=== PATIENT | male | born 1985 | race Caucasian/White ===

== ENCOUNTER 2023-10-02 20:07 | Emergency (ER) | payer OTHER, SELFPAY ==
[2023-10-02 20:10] VITALS: BMI 31.6
[2023-10-02 20:57] VITALS: BP 110/83
[2023-10-02 20:58] VITALS: BP 110/78
--- NOTE | 2023-10-02 22:49 | ED.GENMED ---
History of Present Illness
General
Chief Complaint: Vascular Symptoms
Time Seen by Provider: 10/02/23 20:13
Travel History
Have you had any contact with someone who has COVID-19?: No
Do you have any symptoms of coronavirus? Fever > 100 degrees, chills, cough, shortness of breath, sore throat, loss of taste or smell, muscle aches, or headache?: No
History of Present Illness
History of Present Illness:
Mother noted cyanosis to the left lower leg this evening. States his feet are frequently cool but not normally this cyanotic. Mostly the left lower leg.
Past History
Past History
ED Past Medical History: None and Other (gout once 'a long time ago' was given Colchecine at the time)
Social History
Tobacco: Non-smoker
Personal: Single
Living: with family
Employment: Employed
Family History
Family History: Other (father has RA)
Phy Exam
Physical Exam
Physical Exam:
GENERAL: Alert. Will answer questions.
EYE: Orbits normal.
NECK: Supple
CARDIAC: Regular rate and rhythm without any obvious murmurs.
LUNGS: Clear breath sounds,normal
ABDOMEN: Soft, without focal tenderness or distention
NEUROLOGICAL: Alert. Left hemiplegia
SKIN: Warm and dry, no rash or lesion, no discoloration, skin intact.
MUSCULOSKELETAL: Coolness to both lower extremities left greater than right. This only is the feet. Calves have good color. Good popliteal pulses. Good femoral pulses bilaterally. Initially had a Doppler of the left posterior tibial. Right
posterior tibial intact.
Course
Orders/Labs/Results
Orders:
Orders
10/02/23 20:42
US Periph Art LOWER Ext w CAMMY Urgent
Comment:
Reason For Exam: left foot cyanosis
10/02/23 20:43
US Periph Venous LOWER Ext Jayson Urgent
Comment:
Reason For Exam: LE color changes. hx of dvt
Vital Signs
Initial and Last Documented VS:
Initial Vital Signs
Pulse Ox
98
10/02/23 20:19
Last Documented Vital Signs
Pulse Resp BP Pulse Ox
75 11 110/78 95
10/02/23 21:15 10/02/23 21:15 10/02/23 20:58 10/02/23 21:15
*Radiology
Radiology exam reviewed: radiology read reviewed (Arterial flow good. Venous ultrasounds negative.)
*Pulse Oximetry
Patient hypoxic: no
*Critical Care Note
Total Time (30-74mins, 75-104mins- exclusive of procedures): Not Applicable
Data Reviewed
Review of Other/Old Records Reveals: Labs and Records
Update Note
Update Note:
Patient's feet are warm and perfusing well at this time. I suspect this is a sympathetic neurologic issue. No sign of any vascular issue. Stable for discharge to follow-up
ED Attending Note
-
Portions of this chart may have been created with voice recognition software.� Occasional wrong word or��sound alike� substitutions may have occurred due to the inherent limitations of voice recognition software.
Discharge Plan
Departure
Patient Disposition: Home (Routine Discharge)
Date of Disposition: 10/02/23
Time of Disposition: 22:50
Patient with high blood pressure during this ER visit?: No
Discharge Problem:
history of intracerebral bleed, transient vascular changes. LLE
Prescriptions:
No Action
prednisone 50 MG tablet
50 mg PO DAILY Qty: 4 0RF
Referrals:
Raymond Eckert MD [Family Provider] - Follow up in 2-3 days
Activity Restrictions/Additional Instructions:
As discussed return with any prolonged concerns for vascular issues, swelling, redness, cyanosis, pain or any other concerning symptoms
Interventions
Interventions:
*Risk Screen - Suicide Last Done: 10/02/23 20:12
*General Assessment Last Done: 10/02/23 20:12
*Neglect/Abuse Screening Last Done: 10/02/23 20:12
ED- Fall Risk Assessment Last Done: 10/02/23 20:19
*ED COVID-19 Vaccine History Last Done: 10/02/23 20:11
ED- Cardiac Assessment Last Done: 10/02/23 20:19
ED- Pulmonary Assessment Last Done: 10/02/23 20:19
ED-Peripheral Vascular Assessment Last Done: 10/02/23 20:19
ED-Skin Assessment Last Done: 10/02/23 20:19
[2023-10-02 22:55] VITALS: BP 109/76
== END 2023-10-03 01:20 | disposition home or self-care (01) ==
LOC: EMR 20:07
PROVIDERS: EMERGENCY PHYSICIAN Emergency Medicine; FAMILY PHYSICIAN Family Medicine
DX: R23.0 Cyanosis (principal); R23.8 Other skin changes; Z86.718 Personal history of other venous thrombosis and embolism; Z86.73 Personal history of transient ischemic attack (TIA), and cerebral infarction without residual deficits
CPT/HCPCS: 99284; 93922; 93925; 93970

== ENCOUNTER 2023-11-14 10:59 | Emergency (ER) | payer OTHER, SELFPAY ==
[2023-11-14 11:08] VITALS: BP 155/102
[2023-11-14 11:17] VITALS: BMI 32.1
--- NOTE | 2023-11-14 11:32 | ED.GENMED ---
History of Present Illness
<CARTER Lowe - Last Filed: 11/14/23 13:15>
General
Chief Complaint: Catheter/Tube Problem
Source: family and primary care nurse practitioner
Time Seen by Provider: 11/14/23 11:17
Nursing documentation reviewed up to this point in time: agreed with
Travel History
Have you had any contact with someone who has COVID-19?: No
Do you have any symptoms of coronavirus? Fever > 100 degrees, chills, cough, shortness of breath, sore throat, loss of taste or smell, muscle aches, or headache?: No
History of Present Illness
History of Present Illness:
Patient is a 38-year-old male with history of intracranial hemorrhage with feeding tube in place cared for at home by mom brought to the ER by EMS. Mom reports she was having difficulty with drainage of PEG tube patient was complaining of slight
discomfort to the area she noticed some irritation to the area and to but not flush to gravity as as it normally does. Patient uses tube for fluids and medicine he does not eat orally
Past History
<CARTER Loew - Last Filed: 11/14/23 13:15>
Past History
ED Past Medical History: None and Other (gout once 'a long time ago' was given Colchecine at the time)
Social History
Tobacco: Non-smoker
Personal: Single
Living: with family
Employment: Employed
Family History
Family History: Other (father has RA)
Review of Systems
<CARTER Lowe - Last Filed: 11/14/23 13:15>
Review of Systems
Allergies reviewed?: Yes
Other source history: family
All Other Systems: ROS reviewed and negative except as documented in HPI and ROS
Constitutional: Reports no symptoms; Denies fever
ABD/GI: Reports other (G-tube not flushing)
Skin: Reports no symptoms
Neurological: Reports no symptoms
Psychiatric: Reports no symptoms
Phy Exam
<CARTER Lowe - Last Filed: 11/14/23 13:15>
General Physical Exam
General Presentation: no apparent distress
General age: appears stated age
General Skin: warm and dry
General Habitus: debilitated
General Mental: alert
General Hydration: appears well hydrated
Gastrointestinal Exam
Gastrointestinal Exam: other (PEG tube in place no purulent drainage or bleeding from site)
Neurological Exam
Neurological Exam: alert
Musculoskeletal Exam
Musculoskeletal Exam: full ROM
Skin Exam
Skin Exam: normal color and warm/dry
Psychiatric Exam
Psychiatric Exam: other (flat affect )
Course
<CARTER Lowe - Last Filed: 11/14/23 13:15>
Orders/Labs/Results
Orders:
Orders
11/14/23 11:32
Tube Check [CR Cont Inj Eval Tube(by Rad)] Urgent
Comment:
Reason For Exam: confirm placement
11/14/23 11:54
Lidocaine 4% Cream [Lmx 4] 1 applic .ROUTE .STK-MED ONE
Lidocaine/Epinephrine/Tetracai [Let Topical Anesthetic Gel] 3 ml .ROUTE .STK-MED ONE
Vital Signs
Initial and Last Documented VS:
Initial Vital Signs
Pulse Resp Pulse Ox
63 14 97
11/14/23 11:06 11/14/23 11:06 11/14/23 11:06
Last Documented Vital Signs
Temp Pulse Resp BP Pulse Ox
98.7 F 64 12 135/98 95
11/14/23 11:08 11/14/23 12:00 11/14/23 11:15 11/14/23 12:00 11/14/23 12:00
<Jerome Gramajo MD - Last Filed: 11/14/23 12:06>
Orders/Labs/Results
Orders:
Orders
11/14/23 11:32
Tube Check [CR Cont Inj Eval Tube(by Rad)] Urgent
Comment:
Reason For Exam: confirm placement
11/14/23 11:54
Lidocaine 4% Cream [Lmx 4] 1 applic .ROUTE .STK-MED ONE
Lidocaine/Epinephrine/Tetracai [Let Topical Anesthetic Gel] 3 ml .ROUTE .STK-MED ONE
Vital Signs
Initial and Last Documented VS:
Initial Vital Signs
Pulse Resp Pulse Ox
63 14 97
11/14/23 11:06 11/14/23 11:06 11/14/23 11:06
Last Documented Vital Signs
Temp Pulse Resp BP Pulse Ox
98.7 F 64 12 135/98 95
11/14/23 11:08 11/14/23 12:00 11/14/23 11:15 11/14/23 12:00 11/14/23 12:00
<CARTER Lowe - Last Filed: 11/14/23 13:15>
MDM/Problems Addressed
Differential Diagnosis Includes:
Not limited to blockage, dislodged
MDM/Problems Addressed:
16 Croatian feeding tube was placed successfully with confirmation of of placement on x-ray. Patient tolerated procedure well. Mom at bedside giving patient his normally scheduled medications without difficulty. Will plan for discharge home.
Chronic conditions affecting care:
Patient with history of intracranial hemorrhage cared for at home by mom with PEG tube
<CARTER Lowe - Last Filed: 11/14/23 13:15>
*Critical Care Note
Total Time (30-74mins, 75-104mins- exclusive of procedures): Not Applicable
ED Attending Note
<CARTER Lowe - Last Filed: 11/14/23 13:15>
-
Portions of this chart may have been created with voice recognition software.� Occasional wrong word or��sound alike� substitutions may have occurred due to the inherent limitations of voice recognition software.
<Jerome Gramajo MD - Last Filed: 11/14/23 12:06>
ED Attending Note
Patient seen and examined by attending physician: Yes
I performed the substantive portion of visit, reviewed & personally made and approve the management plan that is documented in note by myself or JADA.: Yes
ED Attending Note:
Patient with some bleeding around his G-tube this week. Has been wearing a band to help lift to move this week. Some pain at the site. Patient's mom noted troubles with drainage to gravity this morning.
On exam patient is nontoxic. Sequela I of intracranial bleed. Known to me. Abdomen is soft and nontender. G-tube appears grossly normal. There is very minimal dried blood at the opening. However no drainage or erythema.
Given problems with drainage and after discussion with patient's mom and , we will change the G-tube.
Discharge Plan
Departure
Patient Disposition: Home (Routine Discharge)
Date of Disposition: 11/14/23
Time of Disposition: 13:10
Patient with high blood pressure during this ER visit?: Yes
Condition: Fair
Covid-19: Not Applicable
Discharge Problem:
Encounter for feeding tube placement
Prescriptions:
No Action
prednisone 50 MG tablet
50 mg PO DAILY Qty: 4 0RF
Referrals:
Raymond Eckert MD [Family Provider] -
Activity Restrictions/Additional Instructions:
16 Croatian feeding tube was inserted with tube confirmation. Return if any worsening of symptoms
Interventions
Interventions:
*Risk Screen - Suicide Last Done: 11/14/23 11:16
*General Assessment Last Done: 11/14/23 11:16
*Neglect/Abuse Screening Last Done: 11/14/23 11:21
ED- Fall Risk Assessment Last Done: 11/14/23 11:23
*ED COVID-19 Vaccine History Last Done: 11/14/23 11:21
EH-Twxagq-Eqoqbtqdvr Assessment Last Done: 11/14/23 11:29
ED-Male Genitourinary Assessment Last Done: 11/14/23 11:29
Discharge Date and Time
Print Language: TUNISIAN
[2023-11-14 12:00] VITALS: BP 135/98
== END 2023-11-14 16:48 | disposition home or self-care (01) ==
LOC: EMR 10:59
PROVIDERS: EMERGENCY PHYSICIAN Emergency Medicine; FAMILY PHYSICIAN Family Medicine
DX: Z46.59 Encounter for fitting and adjustment of other gastrointestinal appliance and device (principal); K94.21 Gastrostomy hemorrhage; R03.0 Elevated blood-pressure reading, without diagnosis of hypertension; F41.9 Anxiety disorder, unspecified; F32.A Depression, unspecified; I69.969 Other paralytic syndrome following unspecified cerebrovascular disease affecting unspecified side; M10.9 Gout, unspecified; N31.9 Neuromuscular dysfunction of bladder, unspecified; Z86.11 Personal history of tuberculosis; Z86.718 Personal history of other venous thrombosis and embolism
CPT/HCPCS: 99283; 43762; 49465

== ENCOUNTER 2023-12-14 18:45 | Observation (INO) | payer OTHER, SELFPAY ==
[2023-12-14] VITALS (10 sets, daily range): BP systolic 126–159; BP diastolic 80–117; BMI 32.5; BMI 30.7
--- NOTE | 2023-12-14 14:19 | ED.GENMED ---
History of Present Illness
General
Chief Complaint: Weakness
Source: patient and family (Mother)
Time Seen by Provider: 12/14/23 13:58
Travel History
Have you had any contact with someone who has COVID-19?: No
Do you have any symptoms of coronavirus? Fever > 100 degrees, chills, cough, shortness of breath, sore throat, loss of taste or smell, muscle aches, or headache?: No
History of Present Illness
History of Present Illness:
Primary complaint is increased weakness. Some cough off and some slurred speech. Patient has a history of a pontine bleed. He is well cared for by his family at home. He has no complaints and is fully alert. However his mom is concerned that he
has some increased and unusual weakness possibly some mild slurred speech although this is improved. Also some cough that is new. No fever no other complaints
Past History
Past History
ED Past Medical History: None and Other (gout once 'a long time ago' was given Colchecine at the time)
Social History
Tobacco: Non-smoker
Personal: Single
Living: with family
Employment: Employed
Family History
Family History: Other (father has RA)
Review of Systems
Review of Systems
All Other Systems: Not applicable
Constitutional: Denies fever
Respiratory: Denies trouble breathing
Cardiac: Denies chest pain
Phy Exam
Physical Exam
Physical Exam:
GENERAL: Alert and oriented in no apparent distress
EYE: Vertical recurring nystagmus with palsy to the left eye
NECK: Supple
ENT: Pharynx without erythema
CARDIAC: Regular rate and rhythm without any obvious murmurs.
LUNGS: Clear breath sounds,normal
ABDOMEN: Soft, without focal tenderness or distention. G-tube in place
NEUROLOGICAL: Alert known to me. Clinically appears likely at neurologic baseline. Weakness left greater than right upper extremity and left greater than right lower extremity. Able to lift his right leg off the chair briefly.
SKIN: Warm and dry, no rash or lesion, no discoloration, skin intact.
MUSCULOSKELETAL: No edema,no deformity.Good color
PSYCH: Normal and appropriate interaction.
Course
Orders/Labs/Results
Orders:
Orders
12/14/23 14:12
CT Head W/o Iv Contrast Urgent
Comment:
Reason For Exam: Increased weakness. History of pontine bleed
Cardiac Monitoring- Treatment ONCE
CXR2 [CR Chest - 2 Views ] Urgent
Comment:
Reason For Exam: Cough/weakness
Pulse Ox/cont/shift [RESP] Stat
Quantity: 1
12/14/23 14:13
Electrocardiogram (*1) Stat
Reason for Study: Other
Other Reason for Exam: neuro symptoms
EKG- Treatment ONCE
12/14/23 14:22
Basic Metabolic Panel Urgent
Complete Blood Count/With Diff Urgent
Urinalysis Reflex To Culture Urgent
Date Specimen was Collected: 12/14/23
Time Specimen was Collected: 14:17
12/14/23 Dinner
IDDSI 4 - Pureed
At Your Request: Full Participation
Oral Supplement (If unsure of flavor order apple or vanilla): Ensure Enlive Chocolate
Supplement Frequency: TID
Special Instructions: One to One Supervision
Comment: nectar thick the ensure for pt to Drink
12/14/23 18:16
Admit/Transfer Patient As Directed
Co-Sign Provider:
Level of Care: Observation services
Assign to:: Telemetry
Physician / Group: carlos kimbrough
Diagnosis: acute on chronic dyspaghia, chronic paraylsis 2/ prior hemorrah brain
Reason for Telemetry: Arrhythmia
Date to Stop Telemetry: 12/17/23
Time to Stop Telemetry: 11:00
Code Status As Directed
Resuscitation Status: Full Code
12/14/23 18:22
HydrALAZINE [Apresoline] 10 mg IV Q6HPRN PRN
Gastrointestinal Tubes As Directed
Type: Gastrostomy
To suction?: No
Irrigate tube?: Yes
Irrigant: Tap Water
Frequency: Q6H
Amount in mls: 250
12/14/23 18:24
CARDIOLOGY CONSULT Routine
Consulting Provider: Krzysztof Burk
Was physician already notified: Yes
Reason for consult: htn mgmt hx pontine cva
12/14/23 19:28
Bisacodyl [Dulcolax] 10 mg RECTAL [id number] PRN
Docusate W/Senna [Senokot-S] 1 tablet PO BIDPRN PRN
Polyethylene Glycol Powder [Miralax] 17 grams PO DAILYPRN PRN
12/14/23 19:28
Case Management Consult ONCE
Case Management Consult: Fdc Placement
Comment: mother he lives with is looking for SNF placement as she cant car for pt and agency has no one to
send. Pt is so is occasionly involved[facility] never [facility]. Pt is NOT aware family or is looking to place him. mom
works here cardiac rehab has exhausted her FMLA
DIETARY CONSULT Routine
Reason for Consult: chronic dysphagia was eating minced moist
Activity As Directed
Activity Level: With Assistance
Comment: assit of 2 to roll pt bedbound
Intake/ Output As Directed
Frequency: Per unit guidelines
Pneumatic Compression Sleeves As Directed
Type: Knee high
Vital Signs As Directed
Frequency: Per unit guidelines
Ot Eval And Treat Routine
Pt Eval And Treat Routine
Activity Level: With Assistance
Speech Therapy Eval & Treat Routine
DX Deep Vein Thrombosis Video Routine
12/15/23 06:00
Basic Metabolic Panel IN AM
Complete Blood Count/With Diff IN AM
Videofluoroscopy [RF Video Fluoro Swallow Exam] IN AM
Comment:
Reason For Exam: Swallowing Function
Abnormal Lab Results
12/14/23
14:22
RDW 15.4 H %
(11.5-14.5)
Glucose 102 H mg/dl
(70-99)
12/14/23 14:22
12/14/23 14:22
Vital Signs
Initial and Last Documented VS:
Initial Vital Signs
Temp Pulse Resp BP Pulse Ox
97.8 F 53 17 159/111 99
12/14/23 13:35 12/14/23 13:35 12/14/23 13:35 12/14/23 13:35 12/14/23 13:35
Last Documented Vital Signs
Temp Pulse Resp BP Pulse Ox
97.8 F 53 18 143/117 95
12/14/23 13:35 12/14/23 17:15 12/14/23 17:15 12/14/23 18:00 12/14/23 17:15
MDM/Problems Addressed
Differential Diagnosis Includes:
General weakness. Patient overexerted himself 3 days ago which she does about once a week. Usually the following day he has some increased weakness. This occurred 2 days ago however this weakness has persisted.
Doubt acute neurologic issue. Patient really not at risk for ischemic stroke. Would only be at risk for recurrent bleed. CT will be done. Somewhat of a difficult neurologic exam given his baseline neurologic issues. I cannot appreciate any
obvious new neurologic symptoms having seen him twice in the past. Also consider with general weakness a electrolyte issue or infectious issue. Workup in progress
*Radiology
Radiology exam reviewed: radiology read reviewed (Stable CT)
*Pulse Oximetry
Patient hypoxic: no
*EKG
Interpreted by ED Provider?: Yes
Interpretation: abnormal
Comparison EKG: no changes
Heart Rate: 55
Rate: bradycardiac
Rhythm: sinus
[place]: normal axis
Interval: normal interval
QRS Pattern: left vent hypertrophy
Ischemia: non-specific ST changes
*Critical Care Note
Total Time (30-74mins, 75-104mins- exclusive of procedures): Not Applicable
Data Reviewed
Review of Other/Old Records Reveals: Labs, Records and Testing
Update Note
Update Note:
Patient medically stable. Complaining of weakness per the mom. Significant ADL issues that are very difficult to manage at home this time. Will be admitted for observation and further help
ED Attending Note
-
Portions of this chart may have been created with voice recognition software.� Occasional wrong word or��sound alike� substitutions may have occurred due to the inherent limitations of voice recognition software.
Discharge Plan
Departure
Patient Disposition: Admit
Date of Disposition: 12/14/23
Time of Disposition: 17:27
Presentation/result/management discussed w/ accepting MD/DO: Hospitalist
Discharge Problem:
Weakness, History of pontine hemorrhage, ADL issues
Interventions
Interventions:
*Risk Screen - Suicide Last Done: 12/14/23 13:35
*General Assessment Last Done: 12/14/23 13:35
*Neglect/Abuse Screening Last Done: 12/14/23 13:35
ED- Fall Risk Assessment Last Done: 12/14/23 14:03
*Nursing Disposition Last Done: 12/14/23 19:34
ED- Cardiac Assessment Last Done: 12/14/23 14:03
ED- Neurological Assessment Last Done: 12/14/23 14:03
ED- Pulmonary Assessment Last Done: 12/14/23 14:03
Discharge Date and Time
Discharge Date/Time: 12/14/23 19:35
[2023-12-14 14:32] LABS: % Basophils 0.6 % (0-2); % Eosinophils 3.4 % (0-6); % Immature Granulocytes 0.5 % (0-0.5); % Lymphocytes 23.5 % (20.5-51.1); % Monocytes 7.2 % (1.7-9.3); % Neutrophils 64.8 % (42.2-75.2); Absolute Basophils 0.1 10^3/uL (0-0.2); Absolute Eosinophils 0.3 10^3/uL (0-0.7); Absolute Lymphocytes 2.1 10^3/uL (1.2-3.4); Absolute Monocytes 0.6 10^3/uL (0.1-0.6); Absolute Neutrophils 5.7 10^3/uL (1.4-6.5); Hematocrit 42.9 % (39.0-52.0); Hemoglobin 14.3 g/dL (13.0-18.0); Mean Corp Hgb Conc. 33.3 g/dL (33.0-37.0); Mean Corpuscular Hgb 28.4 pg (27.0-31.0); Mean Corpuscular Volume 85.1 fL (80.0-94.0); Mean Platelet Volume 10.2 fL (7.4-10.4); Nucleated Red Blood Cells % 0 % (-); Platelet Count 238 10^3/uL (130-400); Red Blood Cell Count 5.04 10^6/uL (4.70-6.10); Red Cell Dist. Width 15.4 % (11.5-14.5); White Blood Cell Count 8.9 10^3/uL (4.8-10.8)
[2023-12-14 14:50] LABS: Blood Urea Nitrogen 15 mg/dl (9-20); Calcium 10.2 mg/dl (8.4-10.2); Carbon Dioxide 23 mmol/L (22-30); Chloride 101 mmol/L (98-107); Estimated Creatinine Clearance > 125 ml/min; Glucose 102 mg/dl (70-99); Potassium 4.4 mmol/L (3.5-5.1); Sodium 138 mmol/L (135-145); eGFR > 60.00
[2023-12-14 15:21] LABS: Urine Albumin Negative (Neg - Trace); Urine Bilirubin Negative (Negative); Urine Character Clear (Clear); Urine Color Yellow; Urine Glucose Negative (Negative); Urine Ketone Negative (Negative); Urine Leukocyte Negative (Negative); Urine Nitrite Negative (Negative); Urine Occult Blood Negative (Negative); Urine Urobilinogen Negative (Neg - 1+)
--- NOTE | 2023-12-14 15:26 | CM ---
Patient is known to [facility]. CM will continue to follow as needed.
--- NOTE | 2023-12-14 17:17 | HPS.HSE ---
Addendum entered and electronically signed by Bladimir Casillas MD 12/15/23 05:07:
Late entry I saw and examined the patient 12/14/23.
The FIRE PROTECTION EQUIPMENT TECHNICIAN or PA's note was reviewed and I agree with the note with exceptions/additions as follows.
Comment:
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
chronic nystagmus impaired vision/visual field, chronic neurogenic bladder, HTN, hx DVT, anxiety/depression, and gout brought in by family d/t concerns aspiration, overall progressive weakness physical deconditioning, and concerns unable to continue
care for needs at home. ED evaluation notable for uncontrolled hypertension diastolic. Patient otherwise in no acute distress, stable respiratory status on room air. Labs and imaging unremarkable.
Physical Exam
General: Comfortable and Conversant; No Pain, Fever or Chills
HEENT: NormoCephalic, Anicteric, [place] Conjunctivae, No Ptosis, chronic nystagmus with peripheral field visual loss can see central vision and 11-1 o'clock, old healed trach site
Respiratory: Clear; No Wheezes, Rales or Rhonchi
Cardiac: S1/S2 and Bradycardia; No Murmur, Rub, Gallop or Peripheral Edema
GI: Soft, Non Tender, Non Distended, Normal Bowel Sounds, G-tube in place 16 Swedish
Genito-urinary: Chronic Saenz
Musculoskeletal: No Clubbing, No Cyanosis, No Edema, Chronic spastic arms and legs, chronic ataxia, chronic bedbound
Skin: Warm and Dry; No Rash or Jaundice
Neuro: AO x 3
Psych: Calm
#Possible aspiration
#Concerns for physical deconditioning, family unable to continue care for at home
#Hypertension
ST/PT/OT eval
case mgmt consult
check VSE
resume home antihypertensives
Original Note:
Family Physician
-
Family Physician: Raymond Eckert
Chief Complaint
-
dysphgia coughing
History of Present Illness
38-year-old male from home where he lives with his mother and father. His mother has been caring for him since his stroke resulting in paralysis for the last 3 months. She reports when eating minced and moist food yesterday he was coughing
forcefully. She also reports some increased weakness in his arms and legs. She denies headache, fever, chills, chest pain, palpitations, abdominal pain, nausea, vomiting, diarrhea. His mother states she is no longer to take care of him at home
due to maxing out her FMLA. They have tried 42 agencies to get help in the home since he was approved for Medicaid waiver 15 hours a day no one has been able to come to where they live in [place]. The patient's was supposed to contact
[facility] 3 weeks ago for SNF placement but according to patient's mother Blanca she has been dragging her feet and does not come and help her take care of the son. The patient does not know family is looking for permanent [place] [facility] [place] facility placement.
He has past medical history pontine stroke April 2023 requiring bur hole evacuation with paralysis, chronic G-tube supplementation, chronic dysphagia, chronic paralysis spastic arms, chronic generalized neuropathy, chronic generalized
hyperhidrosis/autonomic, chronic nystagmus causing impaired vision can see central visual field and visual field from 11-1 o'clock, chronic neurogenic bladder, HTN, DVT bilateral lower legs May 2023 was on Eliquis and Lovenox till September 2023,,
TB age [age], anxiety/depression, gout.
Medical History
Past Medical History
Past Medical History: Reports Other
Additional Past Medical History:
Pontine stroke April 2023 2/2 uncontrolled HTN requiring bur hole evacuation with paralysis
Chronic G-tube supplementation
Chronic dysphagia on prior minced moist food with nectar thick drinks and Ensure 3 times daily
Chronic paralysis spastic arms/legs
Chronic generalized neuropathy
Chronic generalized hyperhidrosis/autonomic
Chronic nystagmus causing impaired vision can see central visual field and visual field from 11-1 o'clock
Chronic neurogenic bladder-uses [place] catheter
HTN,
DVT bilateral lower legs May 2023 was on Eliquis and Lovenox till September 2023
TB age 14-15
Anxiety/depression
Gout.
Past Surgical History: Reports Other
Additional Past Surgical History:
ACL repair, borehole cranium secondary to intracranial bleed
Hx prior trach
Social History
Tobacco: Non-smoker
Alcohol: None
Drug: None
Personal:
Living: With Family (Lives with mother and father visits)
Employment: Disabled
Family History
Family History: Not pertinent
Allergies / Home Medications
Allergies reflects when Allergies were last updated in [facility].
Home Medications with original date entered in [facility]
Allergy/Medication List:
Allergies
Allergy/AdvReac Type Severity Reaction Status Date / Time
NKA - No Known Allergies Allergy Unknown Uncoded 10/02/23 20:12
Home Medications
amantadine HCl 50 mg/5 mL oral solution 100 mg feeding tube DAILY 12/14/23
amlodipine 10 mg tablet 5 mg PO DAILYPRN PRN high bp 12/14/23
baclofen 5 mg tablet 5 mg PO TID 12/14/23
buspirone 10 mg tablet 10 mg PO TID 12/14/23
diazepam 5 mg tablet (Valium) 2.5 mg PO DAILY 12/14/23
diazepam 5 mg tablet (Valium) 5 mg PO BIDPRN PRN spasms 12/14/23
diazepam 5 mg tablet (Valium) 5 mg PO HS 12/14/23
fluticasone propionate 50 mcg/actuation nasal spray,suspension 1 spray intranasal BID 12/14/23
melatonin 3 mg tablet 3 mg PO HS 12/14/23
nebivolol 10 mg tablet (Bystolic) 10 mg PO DAILY 12/14/23
nebivolol 5 mg tablet (Bystolic) 5 mg PO HS 12/14/23
nystatin 100,000 unit/gram topical powder 1 applic topical BID grion 12/14/23
polyethylene glycol 3350 17 gram oral powder packet (Miralax) 17 g PO DAILY 12/14/23
quetiapine 50 mg tablet (Seroquel) 25 mg PO HS 12/14/23
sertraline 20 mg/mL oral concentrate 100 mg PO DAILY 12/14/23
therapeutic multivitamin 1 tab PO DAILY 12/14/23
Review of Systems
-
History Source: Patient and Family (Mother Blanca at bedside and father)
A 12 point ROS was completed and negative except as noted: Yes
Constitutional: Denies Fever, Fatigue or Chills
EENT: Reports Other (Chronic nystagmus with chronic visual field impairment can only see central vision and 11-1 o'clock); Denies Sore Throat or Runny Nose
Respiratory: Reports Cough (Post eating minced moist food)
Cardiac: Denies Chest Pain, Diaphoresis, Palpitations or Syncope
Abdomen/GI: Reports Other (Chronic G-tube in place 16 Swedish); Denies Abdominal Pain, Nausea, Vomiting, Diarrhea, Constipated or Bloody Stools
: Reports Saenz ([place] catheter in place)
Musculoskeletal: Denies Joint Pain or Edema
Skin: Denies Itching or Rash
Neurological: Reports Other (Chronic spastic arms and legs secondary to prior pontine stroke); Denies Dizzy, Headache or Weakness
Endocrine: Reports No Symptoms
Hematologic/Lymphatic: Reports No Symptoms
Psych: Reports Calm
Physical Exam
Vital Signs
Vital Signs
Temp Pulse Resp BP Pulse Ox
97.8 F 56 12 137/99 97
12/14/23 13:35 12/14/23 15:30 12/14/23 14:15 12/14/23 15:00 12/14/23 15:30
Physical Exam
General: Comfortable and Conversant; No Pain, Fever or Chills
HEENT: NormoCephalic, Anicteric, [place] Conjunctivae, No Ptosis and Other (chronic nystagmus with peripheral field visual loss can see central vision and 11-1 o'clock, old healed trach site)
Respiratory: Clear; No Wheezes, Rales or Rhonchi
Cardiac: S1/S2 and Bradycardia; No Murmur, Rub, Gallop or Peripheral Edema
Breast: Deferred by me
GI: Soft, Non Tender, Non Distended, Normal Bowel Sounds and Other (G-tube in place 16 Swedish)
Genito-urinary: Saenz (Chronic [place] catheter)
Musculoskeletal: No Clubbing, No Cyanosis, No Edema and Other (Chronic spastic arms and legs secondary to prior pontine stroke, can slide heels to bend at knee, can bend arms at the elbows but with chronic ataxia chronic bedbound,)
Skin: Warm and Dry; No Rash or Jaundice
Neuro: AO x 3 and Other (Chronic spastic arms and legs secondary to prior pontine stroke, can slide heels to bend at knee, can bend arms at the elbows but with chronic ataxia chronic bedbound, chronic nystagmus with peripheral field visual loss can
see central vision and 11-1 o'clock)
Psych: Calm
Laboratory Results
-
12/14/23 14:22
12/14/23 14:22
Impression/Plan
-
Impression/plan
Observation MedSurg
All meds crushed via G-tube with warm water dilution prior to administration
#Acute on chronic dysphagia
#Chronic G-tube for supplemental fluid resuscitation
-Typically on minced moist food with nectar thick liquids has been coughing past 24 hours
-Does thickened chocolate Ensure 3 times daily
-Continue water bolus 250 cc flush every 6 hours G-tube
-Consult speech therapy for swallow eval
-Consult dietary
-Consult PT/OT/case management for SNF placement(patient is not aware mother looking for SNF placement as cannot care for him at home agency cannot find any aids to help her)
-Mother/patient's was looking at [facility] for SNF placement
CT head: No acute intracranial abnormality. No acute intracranial hemorrhage. Small anterior right paramidline calvarial fadia hole prior history of pontine hemorrhage per mother
CXR: Mild lingular atelectasis. Slightly enlarged heart though possibly accentuated by a diminished degree of inspiration no heart failure no PNA
#Hx Pontine bleed April 2023 with Paralysis/spastic arms legs/Chronic generalized neuropathy
#Hx Chronic nystagmus causing impaired vision can see central visual field and visual field from 11-1 o'clock
-Continue Valium 2.5 mg a.m., 5 mg at bedtime, 5 mg p.o. twice daily as needed spasms
-Continue baclofen 5 mg p.o. 3 times daily
-Continue amantadine 100 mg via G-tube daily
-Patient due to start Lyrica week one 1 capsule 25 mg hs x7 days then(12/13- 12/19)
25 mg every 12 hours x 7 days (12/20- 12/26)
then 50 mg bid x 7 days (12/27-01/02)
then 100 mg bid maintenance 01/03 and on
-Patient follows with Dr. Hallie Liu at [facility] who prescribed above Lyrica regimen
#Chronic neurogenic bladder 2/2 paralysis from stroke
-Patient wears [place] catheter
#Chronic generalized hyperhidrosis
-Mother reports keeps room cool does have fan but not pointing at patient as exacerbates his neuropathy
#HTN-benign
-Continue Bystolic 10 mg a.m., 5 mg at bedtime
-IV hydralazine as needed SBP 160/diastolic 90
-Consult [facility] cardiology BP management possibly given drug regimen
#Hx DVT bilateral lower legs May 2023 was on Eliquis then Lovenox which was stopped September 2023
#Hx tuberculosis approximately age 14-15
#Anxiety/depression
-Continue BuSpar 10 mg G-tube . 3 times daily
-Continue Seroquel 25 mg at bedtime
#Gout hx
Dvt proph
SCDs
full Code
[2023-12-14] MEDS: DESENEX/MITRAZOL/ZEASORB 1 APPLIC TOPICAL (23:31)
[2023-12-14] MEDS: BYSTOLIC 5 MG TUBE (23:32)
[2023-12-14] MEDS: BUSPAR 10 MG TUBE (23:32)
[2023-12-14] MEDS: LIORESAL 5 MG TUBE (23:33)
[2023-12-14] MEDS: LYRICA 25 MG TUBE (23:33)
[2023-12-14] MEDS: SEROQUEL 25 MG TUBE (23:33)
[2023-12-14] MEDS: MELATONIN 3 MG TUBE (23:33)
[2023-12-14] MEDS: VALIUM 5 MG TUBE (23:33)
--- NOTE | 2023-12-15 02:20 | PTCARENOTE ---
Patient arrived from the ED via stretcher at approximately 1930. Patient pulled over from stretcher to bed x3 assist. Patient AAOx3. Patient w/ history of stroke w/ paralysis/spastic movements in extremities and nystagmus. Patient also reports
chronic dysphagia since stroke along with garbled/slow speech. VSS as documented. Assessment as documented. Patient oriented to room. Bed in lowest position. Call carver within reach.
[2023-12-15 03:20] VITALS: BP 117/82
[2023-12-15 07:30] VITALS: BP 126/80
[2023-12-15 07:48] LABS: % Basophils 0.5 % (0-2); % Immature Granulocytes 0.4 % (0-0.5); % Lymphocytes 25.1 % (20.5-51.1); % Monocytes 6.9 % (1.7-9.3); % Neutrophils 63.1 % (42.2-75.2); Absolute Basophils 0.1 10^3/uL (0-0.2); Absolute Eosinophils 0.4 10^3/uL (0-0.7); Absolute Lymphocytes 2.3 10^3/uL (1.2-3.4); Absolute Monocytes 0.6 10^3/uL (0.1-0.6); Absolute Neutrophils 5.8 10^3/uL (1.4-6.5); Hematocrit 42.5 % (39.0-52.0); Hemoglobin 14.1 g/dL (13.0-18.0); Mean Corp Hgb Conc. 33.2 g/dL (33.0-37.0); Mean Corpuscular Hgb 28.3 pg (27.0-31.0); Mean Corpuscular Volume 85.3 fL (80.0-94.0); Mean Platelet Volume 10.6 fL (7.4-10.4); Nucleated Red Blood Cells % 0 % (-); Platelet Count 221 10^3/uL (130-400); Red Blood Cell Count 4.98 10^6/uL (4.70-6.10); Red Cell Dist. Width 15.4 % (11.5-14.5); White Blood Cell Count 9.2 10^3/uL (4.8-10.8)
--- NOTE | 2023-12-15 07:52 | W.PN.HOSP.TC ---
Today's Communication/Plan
-
ST/PT/OT
Lyrica
check brain mri
blood pressure control
discharge planning SNF rehab
Assessment / Plan
Assessment / Plan
Physical Exam
General: Comfortable and Conversant; No Pain, Fever or Chills
HEENT: NormoCephalic, Anicteric, [place] Conjunctivae, No Ptosis, chronic nystagmus with peripheral field visual loss can see central vision and 11-1 o'clock, old healed trach site
Respiratory: Clear; No Wheezes, Rales or Rhonchi
Cardiac: S1/S2 and Bradycardia; No Murmur, Rub, Gallop or Peripheral Edema
GI: Soft, Non Tender, Non Distended, Normal Bowel Sounds, G-tube in place 16 Latvian
Genito-urinary: Chronic Saenz
Musculoskeletal: No Clubbing, No Cyanosis, No Edema, Chronic spastic arms and legs, chronic ataxia, chronic bedbound
Skin: Warm and Dry; No Rash or Jaundice
Neuro: AO x 3
Psych: Calm
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
chronic nystagmus impaired vision/visual field, chronic neurogenic bladder, HTN, hx DVT, anxiety/depression, and gout brought in by family d/t concerns aspiration, overall progressive weakness physical deconditioning, and concerns unable to continue
care for needs at home. ED evaluation notable for uncontrolled hypertension diastolic improved/resolved, however, with restart home antihypertensives. Patient otherwise in no acute distress, stable respiratory status on room air. Labs and
imaging unremarkable.
Observation MedSurg
All meds crushed via G-tube with warm water dilution prior to administration
#Acute on chronic dysphagia
#Chronic G-tube for supplemental fluid resuscitation
-Typically on minced moist food with nectar thick liquids has been coughing past 24 hours
-Does thickened chocolate Ensure 3 times daily
-Continue water bolus 250 cc flush every 6 hours G-tube
-Speech therapy eval with VSE appreciated
-Consult dietary
-Consult PT/OT/case management appreciated SNF rehab
CT head: No acute intracranial abnormality. No acute intracranial hemorrhage. Small anterior right paramidline calvarial fadia hole prior history of pontine hemorrhage per mother
Checking Brain MRI
CXR: Mild lingular atelectasis. Slightly enlarged heart though possibly accentuated by a diminished degree of inspiration no heart failure no PNA
#Hx Pontine bleed April 2023 with Paralysis/spastic arms legs/Chronic generalized neuropathy
#Hx Chronic nystagmus causing impaired vision can see central visual field and visual field from 11-1 o'clock
-Continue Valium 2.5 mg a.m., 5 mg at bedtime, 5 mg p.o. twice daily as needed spasms
-Continue baclofen 5 mg p.o. 3 times daily
-Continue amantadine 100 mg via G-tube daily
-Patient started on Lyrica week one 1 capsule 25 mg hs x7 days then(12/13- 12/19)
25 mg every 12 hours x 7 days (12/20- 12/26)
then 50 mg bid x 7 days (12/27-01/02)
then 100 mg bid maintenance 01/03 and on
-Patient follows with Dr. Hallie Liu at [facility] who prescribed above Lyrica regimen
#Chronic neurogenic bladder 2/2 paralysis from stroke
-Patient wears [place] catheter
#Chronic generalized hyperhidrosis
-Mother reports keeps room cool does have fan but not pointing at patient as exacerbates his neuropathy
#HTN
-Continue Bystolic 10 mg a.m., 5 mg at bedtime
-prn hydralazine (has not required)
#Hx DVT bilateral lower legs May 2023 was on Eliquis then Lovenox which was stopped September 2023
#Hx tuberculosis approximately age 14-15
#Anxiety/depression
-Continue BuSpar 10 mg G-tube . 3 times daily
-Continue Seroquel 25 mg at bedtime
#Gout hx
Dvt proph
SCDs
full Code
discussed with patient and patient's mom Blanca
I spent a total of 55 minutes with the patient or on the floor. More than 50% of this time involved counseling and coordination of care.
Anticipated Discharge: 24 - 48 hours
Subjective/Interval History
-
Date of Service: December 15, 2023
no acute distress. Requesting Tylenol d/t generalized body ache.
Objective Data
-
Labs:
Laboratory Results
12/15/23
06:47
WBC Pending
Hgb Pending
Hct Pending
Plt Count Pending
Sodium Pending
Potassium Pending
Chloride Pending
Carbon Dioxide Pending
BUN Pending
Creatinine Pending
Glucose Pending
Calcium Pending
Vital Signs:
Vital Signs
Temp Pulse Resp BP Pulse Ox
97.9 F 58 14 117/82 100
12/15/23 03:20 12/15/23 03:20 12/15/23 03:20 12/15/23 03:20 12/15/23 03:20
I&O
12/14/23 12/15/23 12/16/23
06:59 06:59 06:59
Output Total 1550 / 1550
Balance -1550 / -1550
[2023-12-15 08:32] LABS: Blood Urea Nitrogen 14 mg/dl (9-20); Calcium 9.9 mg/dl (8.4-10.2); Carbon Dioxide 26 mmol/L (22-30); Chloride 100 mmol/L (98-107); Estimated Creatinine Clearance > 125 ml/min; Glucose 90 mg/dl (70-99); Potassium 4.5 mmol/L (3.5-5.1); Sodium 137 mmol/L (135-145); eGFR > 60.00
[2023-12-15] MEDS: MIRALAX 17 GRAMS TUBE (08:40)
[2023-12-15] MEDS: BYSTOLIC 10 MG TUBE (08:40)
[2023-12-15] MEDS: VALIUM 2.5 MG TUBE (08:40)
[2023-12-15] MEDS: LIORESAL 5 MG TUBE ×3 (08:42→21:31)
[2023-12-15] MEDS: BUSPAR 10 MG TUBE ×3 (08:43→21:26)
[2023-12-15] MEDS: THERAGRAN 1 TABLET TUBE (08:43)
[2023-12-15] MEDS: SYMMETREL SYRUP 100 MG TUBE (08:43)
--- NOTE | 2023-12-15 08:43 | PTOTSP ---
Pt is bedbound at baseline. No acute skilled PT needs. Will sign off.
[2023-12-15] MEDS: ZOLOFT ORAL CONCENTRATE 100 MG TUBE (08:44)
[2023-12-15] MEDS: DESENEX/MITRAZOL/ZEASORB 1 APPLIC TOPICAL ×2 (08:45→21:25)
[2023-12-15] MEDS: TYLENOL ORAL SOLUTION 650 MG PO ×2 (08:45→21:32)
--- NOTE | 2023-12-15 09:14 | PTOTSP ---
Dysphagia Evaluation
Patient presents with signs concerning for moderate-severe oral dysphagia and unspecified pharyngeal dysphagia, likely due to history of a pontine bleed (April 2023). Coughing noted in 1/5 trials of mildly thick liquids. Cannot r/o silent
aspiration bedside.
Given concern for aspiration prior to admission and progressive weakness, recommend video swallow study to objectively assess swallowing function and further develop treatment plan. Chest x-ray 12/14/2023 without PNA. Continue diet as ordered until
video swallow study.
Recommend:
1. IDDSI Level 4 Puree, IDDSI Level 2 Mildly Thick liquids via tsp
2. Medications - via G-tube (in place)
3. Strategies: full feeding assistance, upright as close to 90 degrees as possible with head neutral/midline, small single sips/bites, slow rate, ensure patient clears mouth/swallows before next bite
4. Oral care 3x daily
5. Video swallow study
--- NOTE | 2023-12-15 10:24 | CM ---
Addendum entered by Fara Álvarez 12/15/23 11:53:
Lengthy bedside meeting with spouse and parents
Pt off unit for VSE
Payor sources for ST vs LT discussed in length
Spouse has obtained document review attorney/Isaías Crowder to assist with estate and LTC plannin
[facility]- no beds available
Spouse if hopeful for [facility] under [employer] auth with option for LT placement
Will await outcome of referral
PAC provided if additional SNF choices are needed
Original Note:
CM spoke with pt's mother/Blanca via phone
Pt resides with his mother and father in a 2SH with 2 BUBBA, 1st floor set up
Pt has a hospital bed, ata lift, WC and a sit to stand along with peg tube
Pt with severe stroke fall 2022 and attended [facility] for rehab and discharged in September
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
Pt was able to lift R arm independently but had limited use due to spasms
Pt requires total care for all personal care tasks and non-ambulatory
Pt is B/B incontinent and tex[place] cath is used in the evening
Pt is AxO 3x and able to follow commands, slow speech but able to make needs known
Good skin integrity with no breakdown
Pt receives water boluses and medications through peg and was on thickened/nectar and minced moist diet
Pt is current with [facility] and mother provides 24/7 care; however, [facility] has termed and she returns to work next week
Pt has been approved for 16 hours of waiver services but family having difficulty with finding caregivers, no caregivers in place currently
Pt is /Bret and has two minor children (4 and 10 years old)
They reside in the family home in [place]
Spouse unable to care for pt in their home due to work and child abuse worker
Family requesting ST rehab with potential option for LT placement if meaningful gains are not made during rehab
Interested in [facility] and [facility]
Call to dtr and VM left to obtain other choices
Per mother, spouse if decision maker and POA
PASRR completed and referrals sent via [facility] to [facility] and [facility]
Mother is hopeful for [employer] auth for ST rehab
PT/OT orders placed
Discharge Disposition- SNF
[2023-12-15 11:09] VITALS: BP 156/99
--- NOTE | 2023-12-15 13:40 | PTOTSP ---
Video Swallow Study
Summary: Patient presents with moderate-severe oral and moderate pharyngeal dysphagia. No aspiration occurred but risk is elevated and volitional cough is weak. Please see patient care note for full details of penetration and swallowing
physiology.
PO intake will likely need to be supplemented via non-oral means given effort required to transfer/swallow. Patient has PEG in place.
Recommend:
1. IDDSI Level 4 Puree, IDDSI Level 2 Mildly Thick Liquids
2. Medications - via G-tube (in place)
3. Strategies: full feeding assistance, upright as close to 90 degrees as possible with head neutral/midline, small single sips/bites, slow rate, ensure patient clears mouth/swallows before next bite
4. Oral care 3x daily
5. YARD PILOT to follow up bedside to trial thin liquids (via straw) and minced/moist solids to determine tolerance over the duration of a meal prior to advancing these consistencies. Dysphagia therapy warranted for swallowing rehabilitation.
[2023-12-15 13:43] VITALS: BMI 30.7
[2023-12-15 15:45] VITALS: BP 152/88
--- NOTE | 2023-12-15 16:43 | VNURNOTE ---
Patient is current with [facility] since 09/28 w/PT/OT/ELECTROLYSIST.
CM updated this am with family request for placement.
[2023-12-15 19:53] VITALS: BP 126/94
[2023-12-15] MEDS: MELATONIN 3 MG TUBE (21:31)
[2023-12-15] MEDS: SEROQUEL 25 MG TUBE (21:31)
[2023-12-15] MEDS: BYSTOLIC 5 MG TUBE (21:31)
[2023-12-15] MEDS: LYRICA 25 MG TUBE (21:31)
[2023-12-15] MEDS: VALIUM 5 MG TUBE (21:32)
[2023-12-15 23:32] VITALS: BP 134/86
[2023-12-16] VITALS (7 sets, daily range): BP systolic 105–155; BP diastolic 72–104
[2023-12-16] MEDS: TYLENOL ORAL SOLUTION 650 MG TUBE (06:07)
--- NOTE | 2023-12-16 06:55 | W.PN.HOSP.TC ---
Today's Communication/Plan
-
Lyrica
check brain mri
blood pressure control
discharge planning SNF rehab
Assessment / Plan
Assessment / Plan
Physical Exam
General: Comfortable and Conversant; No Pain, Fever or Chills
HEENT: NormoCephalic, Anicteric, [place] Conjunctivae, No Ptosis, chronic nystagmus with peripheral field visual loss can see central vision and 11-1 o'clock, old healed trach site
Respiratory: Clear; No Wheezes, Rales or Rhonchi
Cardiac: S1/S2 and Bradycardia; No Murmur, Rub, Gallop or Peripheral Edema
GI: Soft, Non Tender, Non Distended, Normal Bowel Sounds, G-tube in place 16 Yi
Genito-urinary: Chronic Saenz
Musculoskeletal: No Clubbing, No Cyanosis, No Edema, Chronic spastic arms and legs, chronic ataxia, chronic bedbound
Skin: Warm and Dry; No Rash or Jaundice
Neuro: AO x 3
Psych: Calm
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
chronic nystagmus impaired vision/visual field, chronic neurogenic bladder, HTN, hx DVT, anxiety/depression, and gout brought in by family d/t concerns aspiration, overall progressive weakness physical deconditioning, and concerns unable to continue
care for needs at home. ED evaluation notable for uncontrolled hypertension diastolic improved/resolved, however, with restart home antihypertensives. Patient otherwise in no acute distress, stable respiratory status on room air. Labs and
imaging unremarkable.
Observation MedSurg
All meds crushed via G-tube with warm water dilution prior to administration
#Acute on chronic dysphagia
#Chronic G-tube for supplemental fluid resuscitation
-Typically on minced moist food with nectar thick liquids has been coughing past 24 hours
-Does thickened chocolate Ensure 3 times daily
-Continue water bolus 250 cc flush every 6 hours G-tube
-Speech therapy eval with VSE appreciated
-Consult dietary
-Consult PT/OT/case management appreciated SNF rehab
CT head: No acute intracranial abnormality. No acute intracranial hemorrhage. Small anterior right paramidline calvarial fadia hole prior history of pontine hemorrhage per mother
Checking Brain MRI
CXR: Mild lingular atelectasis. Slightly enlarged heart though possibly accentuated by a diminished degree of inspiration no heart failure no PNA
#Hx Pontine bleed April 2023 with Paralysis/spastic arms legs/Chronic generalized neuropathy
#Hx Chronic nystagmus causing impaired vision can see central visual field and visual field from 11-1 o'clock
-Continue Valium 2.5 mg a.m., 5 mg at bedtime, 5 mg p.o. twice daily as needed spasms
-Continue baclofen 5 mg p.o. 3 times daily
-Continue amantadine 100 mg via G-tube daily
-Patient started on Lyrica week one 1 capsule 25 mg hs x7 days then(12/13- 12/19)
25 mg every 12 hours x 7 days (12/20- 12/26)
then 50 mg bid x 7 days (12/27-01/02)
then 100 mg bid maintenance 01/03 and on
-Patient follows with Dr. Hallie Liu at [facility] who prescribed above Lyrica regimen
#Chronic neurogenic bladder 2/2 paralysis from stroke
-Patient wears [place] catheter
#Chronic generalized hyperhidrosis
-Mother reports keeps room cool does have fan but not pointing at patient as exacerbates his neuropathy
#HTN
-Continue Bystolic 10 mg a.m., 5 mg at bedtime
-prn hydralazine (has not required)
#Hx DVT bilateral lower legs May 2023 was on Eliquis then Lovenox which was stopped September 2023
#Hx tuberculosis approximately age 14-15
#Anxiety/depression
-Continue BuSpar 10 mg G-tube . 3 times daily
-Continue Seroquel 25 mg at bedtime
#Gout hx
Dvt proph
SCDs
full Code
discussed with patient, patient's mother Blanca, and patient's father Isaías
I spent a total of 55 minutes with the patient or on the floor. More than 50% of this time involved counseling and coordination of care.
Anticipated Discharge: 24 - 48 hours
Subjective/Interval History
-
Date of Service: December 16, 2023
Seen and examined at bedside in no acute distress resting comfortably in bed. Reporting improvement in pain with start of Lyrica. Patient's Mother and Father present during evaluation.
Objective Data
-
Labs:
Laboratory Results
12/16/23
06:00
WBC Pending
Hgb Pending
Hct Pending
Plt Count Pending
Sodium Pending
Potassium Pending
Chloride Pending
Carbon Dioxide Pending
BUN Pending
Creatinine Pending
Glucose Pending
Calcium Pending
Total Bilirubin Pending
AST Pending
ALT Pending
Alkaline Phosphatase Pending
Vital Signs:
Vital Signs
Temp Pulse Resp BP Pulse Ox
98.9 F 51 14 122/73 97
12/16/23 03:48 12/16/23 03:48 12/16/23 03:48 12/16/23 03:48 12/16/23 03:48
I&O
12/14/23 12/15/23 12/16/23
06:59 06:59 06:59
Intake Total 1200 / 1200
Output Total 1550 / 1550 1675 / 1675
Balance -1550 / -1550 -475 / -475
[2023-12-16] MEDS: SYMMETREL SYRUP 100 MG TUBE (08:29)
[2023-12-16] MEDS: ZOLOFT ORAL CONCENTRATE 100 MG TUBE (08:29)
[2023-12-16] MEDS: MIRALAX 17 GRAMS TUBE (08:30)
[2023-12-16] MEDS: BYSTOLIC 10 MG TUBE (08:30)
[2023-12-16] MEDS: LIORESAL 5 MG TUBE ×3 (08:30→21:26)
[2023-12-16] MEDS: VALIUM 2.5 MG TUBE (08:31)
[2023-12-16] MEDS: BUSPAR 10 MG TUBE ×3 (08:31→21:27)
[2023-12-16] MEDS: THERAGRAN 1 TABLET TUBE (08:31)
[2023-12-16] MEDS: DESENEX/MITRAZOL/ZEASORB 1 APPLIC TOPICAL ×2 (08:33→20:24)
[2023-12-16 10:05] LABS: Hematocrit 44.4 % (39.0-52.0); Hemoglobin 14.3 g/dL (13.0-18.0); Mean Corp Hgb Conc. 32.2 g/dL (33.0-37.0); Mean Corpuscular Hgb 28.1 pg (27.0-31.0); Mean Corpuscular Volume 87.2 fL (80.0-94.0); Mean Platelet Volume 10.5 fL (7.4-10.4); Platelet Count 195 10^3/uL (130-400); Red Blood Cell Count 5.09 10^6/uL (4.70-6.10); Red Cell Dist. Width 15.2 % (11.5-14.5); White Blood Cell Count 6.2 10^3/uL (4.8-10.8)
[2023-12-16 10:38] LABS: ALT (SGPT) 23 U/L (0-50); AST (SGOT) 20 U/L (17-59); Albumin 4.4 g/dl (3.5-5.0); Alkaline Phosphatase 117 U/L (38-126); Blood Urea Nitrogen 15 mg/dl (9-20); Calcium 10.1 mg/dl (8.4-10.2); Carbon Dioxide 24 mmol/L (22-30); Chloride 102 mmol/L (98-107); Estimated Creatinine Clearance > 125 ml/min; Glucose 101 mg/dl (70-99); Magnesium 2.1 mg/dl (1.6-2.3); Phosphorus 4.5 mg/dl (2.5-4.5); Potassium 4.5 mmol/L (3.5-5.1); Sodium 137 mmol/L (135-145); Total Bilirubin 0.6 mg/dl (0.2-1.3); Total Protein 7.9 g/dl (6.3-8.2); eGFR > 60.00
--- NOTE | 2023-12-16 11:46 | PTOTSP ---
ST Follow-Up
Pt continues to present with moderate oral dysphagia and mild pharyngeal dysphagia.
Recommendations:
- UPGRADE pt's diet to MINCED AND MOIST SOLIDS (L5) and continue with MILDLY THICK LIQUIDS VIA TSP OR NOSEY CUP; meds crushed in puree or via PEG.
- ASPIRATION PRECAUTIONS: HOB fully upright for all PO intake; pt must be fully awake/alert; small bites; small sips; cyclical ingestion (1 bite, 1 sip, repeat); take breaks if pt demonstrates coughing fit; oral care before and after ALL PO intake;
wash out nosey cup between uses.
- Oral care QID with toothbrush/toothpaste and suction as needed.
- COLD WORK OPERATOR will continue to follow in house to ensure pt is consuming the safest and least restrictive PO diet consistencies.
- Pt to receive speech and swallowing tx upon d/c at the rehab level of care: consider use of EMST75/150 for dysphagia tx.
--- NOTE | 2023-12-16 16:39 | CM ---
met with patient,history of pontine bleed,cont to monitor bp,mri brain,patient has a bed wednesday or wednesday at [facility] for skilled rehab.patient not doing too well ion therapy since weaker then baseline.will start auth with yaneth tomorrow for
st rehab.plan [facility] pending auth.
[2023-12-16] MEDS: BYSTOLIC 5 MG TUBE (21:25)
[2023-12-16] MEDS: SEROQUEL 25 MG TUBE (21:26)
[2023-12-16] MEDS: LYRICA 25 MG TUBE (21:26)
[2023-12-16] MEDS: VALIUM 5 MG TUBE (21:26)
[2023-12-16] MEDS: MELATONIN 3 MG TUBE (21:26)
[2023-12-17 03:19] VITALS: BP 119/77
[2023-12-17] MEDS: TYLENOL ORAL SOLUTION 650 MG TUBE ×2 (03:29→19:25)
--- NOTE | 2023-12-17 07:24 | W.PN.HOSP.TC ---
Today's Communication/Plan
-
blood pressure control
cardio eval requested
discharge planning SNF rehab
Assessment / Plan
Assessment / Plan
Physical Exam
General: Comfortable and Conversant; No Pain, Fever or Chills
HEENT: NormoCephalic, Anicteric, [place] Conjunctivae, No Ptosis, chronic nystagmus with peripheral field visual loss can see central vision and 11-1 o'clock, old healed trach site
Respiratory: Clear; No Wheezes, Rales or Rhonchi
Cardiac: S1/S2 and Bradycardia; No Murmur, Rub, Gallop or Peripheral Edema
GI: Soft, Non Tender, Non Distended, Normal Bowel Sounds, G-tube in place 16 [place]
Genito-urinary: Chronic Saenz
Musculoskeletal: No Clubbing, No Cyanosis, No Edema, Chronic spastic arms and legs, chronic ataxia, chronic bedbound
Skin: Warm and Dry; No Rash or Jaundice
Neuro: AO x 3
Psych: Calm
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
chronic nystagmus impaired vision/visual field, chronic neurogenic bladder, HTN, hx DVT, anxiety/depression, and gout brought in by family d/t concerns aspiration, overall progressive weakness physical deconditioning, and concerns unable to continue
care for needs at home. ED evaluation notable for uncontrolled hypertension diastolic improved/resolved, however, with restart home antihypertensives. Patient otherwise in no acute distress, stable respiratory status on room air. Labs and
imaging unremarkable.
Observation MedSurg
All meds crushed via G-tube with warm water dilution prior to administration
#Acute on chronic dysphagia
#Chronic G-tube for supplemental fluid resuscitation
-Typically on minced moist food with nectar thick liquids has been coughing past 24 hours
-Does thickened chocolate Ensure 3 times daily
-Continue water bolus 250 cc flush every 6 hours G-tube
-Speech therapy eval with VSE appreciated
-Consult dietary
-Consult PT/OT/case management appreciated SNF rehab
CT head: No acute intracranial abnormality. No acute intracranial hemorrhage. Small anterior right paramidline calvarial fadia hole prior history of pontine hemorrhage per mother
Brain MRI appreciated Focal area of susceptibility blooming from hemosiderin deposition within the brenda and extending superiorly into the midbrain, from previous pontine hemorrhage. Increased T2 and FLAIR signal within the anterior two thirds of
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 No evidence of acute intracranial abnormality.
CXR: Mild lingular atelectasis. Slightly enlarged heart though possibly accentuated by a diminished degree of inspiration no heart failure no PNA
#Hx Pontine bleed April 2023 with Paralysis/spastic arms legs/Chronic generalized neuropathy
#Hx Chronic nystagmus causing impaired vision can see central visual field and visual field from 11-1 o'clock
-Continue Valium 2.5 mg a.m., 5 mg at bedtime, 5 mg p.o. twice daily as needed spasms
-Continue baclofen 5 mg p.o. 3 times daily
-Continue amantadine 100 mg via G-tube daily
-Patient started on Lyrica week one 1 capsule 25 mg hs x7 days then(12/13- 12/19)
25 mg every 12 hours x 7 days (12/20- 12/26)
then 50 mg bid x 7 days (12/27-01/02)
then 100 mg bid maintenance 01/03 and on
-Patient follows with Dr. Hallie Liu at [facility] who prescribed above Lyrica regimen
#Chronic neurogenic bladder 2/2 paralysis from stroke
-Patient wears [place] catheter
#Chronic generalized hyperhidrosis
-Mother reports keeps room cool does have fan but not pointing at patient as exacerbates his neuropathy
#HTN
#intermittent Diastolic HTN
-Continue Bystolic 10 mg a.m., 5 mg at bedtime
-prn hydralazine (has not required)
-Cardio eval requested
#Hx DVT bilateral lower legs May 2023 was on Eliquis then Lovenox which was stopped September 2023
#Hx tuberculosis approximately age 14-15
#Anxiety/depression
-Continue BuSpar 10 mg G-tube . 3 times daily
-Continue Seroquel 25 mg at bedtime
#Gout hx
Dvt proph
SCDs
full Code
discussed with patient, patient's mother Blanca, and patient's father Isaías
I spent a total of 55 minutes with the patient or on the floor. More than 50% of this time involved counseling and coordination of care.
Anticipated Discharge: 24 - 48 hours
Subjective/Interval History
-
Date of Service: December 17, 2023
No acute distress. Appears comfortable at this time.
Objective Data
-
Vital Signs:
Vital Signs
Temp Pulse Resp BP Pulse Ox
97.6 F 55 16 119/77 99
12/17/23 03:19 12/17/23 03:19 12/17/23 03:19 12/17/23 03:19 12/17/23 03:19
I&O
12/16/23 12/17/23 12/18/23
06:59 06:59 06:59
Intake Total 1200 / 1200 1700 / 1700
Output Total 1675 / 1675 2275 / 2275
Balance -475 / -475 -575 / -575
[2023-12-17 07:30] VITALS: BP 128/82
[2023-12-17] MEDS: ZOLOFT ORAL CONCENTRATE 100 MG TUBE (08:15)
[2023-12-17] MEDS: SYMMETREL SYRUP 100 MG TUBE (08:15)
[2023-12-17] MEDS: MIRALAX 17 GRAMS TUBE (08:15)
[2023-12-17] MEDS: BYSTOLIC 10 MG TUBE (08:15)
[2023-12-17] MEDS: THERAGRAN 1 TABLET TUBE (08:18)
[2023-12-17] MEDS: LIORESAL 5 MG TUBE ×3 (08:18→21:55)
[2023-12-17] MEDS: VALIUM 2.5 MG TUBE (08:18)
[2023-12-17] MEDS: BUSPAR 10 MG TUBE ×3 (08:19→21:54)
[2023-12-17] MEDS: DESENEX/MITRAZOL/ZEASORB 1 APPLIC TOPICAL ×2 (08:22→19:25)
[2023-12-17 11:05] VITALS: BP 142/94
--- NOTE | 2023-12-17 13:46 | CON.CAR ---
Addendum entered and electronically signed by Zak Christiansen MD 12/17/23 15:58:
I saw and examined the patient.
The Material Cutter's note was reviewed and I agree with the note.
Comment:
GEN: No distress, awake,
HEENT: supple, anicteric, mmm, nystagmus
LUNGS: CTA, no wheezes/rales
CV: Reg, S1/S2, 1/6 syst LSB, no gallop
ABD: soft, BS+, NT/ND
EXT: No edema
NEURO: Awake with generalized weakness.
SKIN: No rash
Plan:
He has a past medical history of hypertension status post pontine stroke/intracranial bleed with bur hole evacuation at the [facility]. He has residual dysphagia with generalized neuropathy, nystagmus, weakness, and neurogenic
bladder. He presented to [facility] with progressive dysphagia. Repeat head CT was overall unremarkable. We were asked to help manage his hypertension.
He was previously on Inderal and had bradycardia. He was then on lisinopril which caused angioedema. He was briefly on Norvasc, with little improvement.
Currently he is on Bystolic 10 mg in the a.m. and 5 mg in the p.m.
Echocardiogram April 2023 has a preserved ejection fraction with LVH and no significant valve disease.
Recommend continue Bystolic 10 mg a.m. and 5 mg in the p.m. Will start amlodipine 5 mg daily and follow his blood pressure for several days. If he has no improvement and his diastolic numbers remain high I would start spironolactone 25 mg daily.
We will follow him while he remains hospitalized.
I suspect he will need long-term care.
Original Note:
Consultation
Consultation Request
Date/Time Consultation Performed: 12/17/23
Requesting Provider: Dr. Casillas
Performing Provider: Amber White PA-C for Dr. Christiansen
Reason for Consultation: HTN
Medical History
-
Chief Complaint: weakness
History of Present Illness:
Patient is a 38 yo M with PMH of HTN who had pontine stroke and bleed with fadia hole evacuation 04/2023 with prolonged admission to [place]. He has dysphagia with chronic G tube supplementation, generalized neuropathy, significant nystagmus, neurogenic
bladder, generalized hyperhidrosis, anxiety/depression, history of B/L LE DVT. He had been living with mother and father at home, however presented due to acute on chronic dysphagia, concern for worsening slurring of speech. Head CT without acute
abnormality on admission. Cardiology consulted due to intermittent HTN, particularly diastolic. Patient's mother reports chronically in 90-100s. Pontine CVA felt to be due to uncontrolled HTN per mother. He had been on propranolol however was taken
off due to bradycardia with HRs in 40s. He was also on lisinopril in past however had angioedema. She reports him then being on norvasc however did not note significant response to this. He is currently on bystolic, initially 5mg BID, now 10mg QAM
and 5mg HS. Cardiology consulted for evaluation. He has chronic dizziness from his CVA and nystagmus.
PMH:
Hypertension
LVH by echo 04/2023 at [place]
Pontine stroke with bleed requiring bur hole evacuation 04/2023 with prolonged admission to [place]
Dysphagia with chronic G-tube supplementation
Generalized neuropathy
Significant nystagmus
Neurogenic bladder
Generalized hyperhidrosis
History of bilateral lower extremity DVT
Anxiety/depression
Angioedema with lisinopril
History of gout
Past Medical History
Past Medical History: Other (in HPI)
Social History
Tobacco: Non-Smoker
Living: With Family
Allergies / Home Medications
Allergy/AdvReac Type Severity Reaction Status Date / Time
No Known Allergies Allergy Unverified 12/14/23 18:50
�Medication �Instructions �Recorded �Confirmed �Type
Lyrica 25 mg feeding tube HS Neurological 12/14/23 12/14/23 History
Condition
amantadine HCl 50 mg/5 mL oral 100 mg feeding tube DAILY 12/14/23 12/14/23 History
solution Neurological Condition
amlodipine 10 mg tablet 5 mg feeding tube DAILYPRN PRN 12/14/23 12/14/23 History
high bp
baclofen 5 mg tablet 5 mg feeding tube TID Muscle Spasms 12/14/23 12/14/23 History
buspirone 10 mg tablet 10 mg feeding tube TID Depression 12/14/23 12/14/23 History
diazepam 5 mg tablet (Valium) 2.5 mg feeding tube DAILY Muscle 12/14/23 12/14/23 History
Spasms
diazepam 5 mg tablet (Valium) 5 mg feeding tube BIDPRN PRN spasms 12/14/23 12/14/23 History
diazepam 5 mg tablet (Valium) 5 mg feeding tube HS Muscle Spasms 12/14/23 12/14/23 History
fluticasone propionate 50 1 spray intranasal BID Congestion 12/14/23 12/14/23 History
mcg/actuation nasal
spray,suspension
melatonin 3 mg tablet 3 mg feeding tube HS Sleep 12/14/23 12/14/23 History
nebivolol 10 mg tablet (Bystolic) 10 mg feeding tube DAILY Blood 12/14/23 12/14/23 History
Pressure
nebivolol 5 mg tablet (Bystolic) 5 mg feeding tube HS Blood Pressure 12/14/23 12/14/23 History
nystatin 100,000 unit/gram topical 1 applic topical BID grion 12/14/23 12/14/23 History
powder
polyethylene glycol 3350 17 gram 17 g feeding tube DAILY 12/14/23 12/14/23 History
oral powder packet (Miralax) Constipation
quetiapine 50 mg tablet (Seroquel) 25 mg feeding tube HS Mental 12/14/23 12/14/23 History
Health/Anxiety
sertraline 20 mg/mL oral 100 mg feeding tube DAILY 12/14/23 12/14/23 History
concentrate Depression
therapeutic multivitamin 1 tab feeding tube DAILY Supplement 12/14/23 12/14/23 History
Review of Systems
-
History Source: Patient and Family
All other systems: Negative unless noted
Physical Exam
Vital Signs
Temp Pulse Resp BP Pulse Ox
96.8 F L 72 18 142/94 97
12/17/23 11:05 12/17/23 11:05 12/17/23 11:05 12/17/23 11:05 12/17/23 11:05
Lab Results
12/16/23 09:26
12/16/23 09:26
Physical Exam
General: No Apparent Distress, Comfortable and Other (nystagmus)
HEENT: Normocephalic, Anicteric and Moist Mucous Membranes
Respiratory: Clear and Non Labored Respirations
Cardiac: S1/S2 and Regular Rhythm
GI: Soft, Non Tender and Normal Bowel Sounds
Musculoskeletal: No Clubbing, No Cyanosis and No Edema
Skin: Warm and Dry
Neuro: Awake and Alert
Impression / Plan
-
Primary Administrator Health Care Facility: none prior to admission
Assessment:
Presentation with acute on chronic dysphagia
Hypertension
LVH by echo 04/2023 at [place]
Pontine stroke with bleed requiring bur hole evacuation 04/2023 with prolonged admission to [place]
Dysphagia with chronic G-tube supplementation
Generalized neuropathy
Significant nystagmus
Neurogenic bladder
Generalized hyperhidrosis
History of bilateral lower extremity DVT
Anxiety/depression
Angioedema with lisinopril
History of gout
ECHO 04/2023 per mother: Preserved EF, LVH
Plan:
-Patient presented with acute on chronic dysphagia, being worked up per primary service
-Head CT and brain MRI without acute abnormality
-Cardiology consulted due to concerns of hypertension, particularly diastolic running in 90s to 100s
-Given relative bradycardia, can likely not uptitrate Bystolic. Has history of angioedema with lisinopril.
-Discussed option of standing dose amlodipine, patient's mother reports in past has not seen significant improvement with this medication but would be willing to retry. Alternative would be Aldactone, however this would require monitoring of kidney
function and potassium levels at SNF
-discussed some degree of HTN may be secondary to intermittent agitation, restlessness, discomfort
-Echo from 04/2023 at [place] reportedly with preserved EF and evidence of LVH
-Discussed with patient's mother and father at bedside
-Discussed with nursing
Data Reviewed
-
EKG: Tracing Personally Visualized and interpreted
CT Scan: Report Reviewed by me
MRI: Report Reviewed by me
Labs: Labs Reviewed by me
Old Records: Reviewed
[2023-12-17 15:30] VITALS: BP 151/90
--- NOTE | 2023-12-17 15:31 | CM ---
patient was seen again by therapy.i started auth with [facility] ppo reference # [id number].faxed clinicals to [phone].phone number is [phone] opt# 3.spioke with kelly and she is not able to take patient until wednesday to [facility].she
can take him short term and is not sure whether she can offer him long term care social worker care. Plan:wait auth for snf from insurance.
[facility] phone # [phone] and fax # [phone].
[2023-12-17] MEDS: NORVASC 5 MG TUBE (16:42)
[2023-12-17 19:34] VITALS: BP 147/93
[2023-12-17] MEDS: SEROQUEL 25 MG TUBE (21:55)
[2023-12-17] MEDS: VALIUM 5 MG TUBE (21:55)
[2023-12-17] MEDS: LYRICA 25 MG TUBE (21:55)
[2023-12-17] MEDS: BYSTOLIC 5 MG TUBE (21:55)
[2023-12-17] MEDS: MELATONIN 3 MG TUBE (21:55)
[2023-12-17 23:07] VITALS: BP 135/92
[2023-12-18] VITALS (7 sets, daily range): BP systolic 114–142; BP diastolic 68–95
[2023-12-18] MEDS: TYLENOL ORAL SOLUTION 650 MG TUBE ×2 (03:08→15:46)
--- NOTE | 2023-12-18 08:21 | W.PN.HOSP.TC ---
Today's Communication/Plan
-
blood pressure control
discharge planning SNF rehab
Assessment / Plan
Assessment / Plan
Physical Exam
General: Comfortable and Conversant; No Pain, Fever or Chills
HEENT: NormoCephalic, Anicteric, [place] Conjunctivae, No Ptosis, chronic nystagmus with peripheral field visual loss can see central vision and 11-1 o'clock, old healed trach site
Respiratory: Clear; No Wheezes, Rales or Rhonchi
Cardiac: S1/S2 and Bradycardia; No Murmur, Rub, Gallop or Peripheral Edema
GI: Soft, Non Tender, Non Distended, Normal Bowel Sounds, G-tube in place 16 K[place]ili
Genito-urinary: Chronic Saenz
Musculoskeletal: No Clubbing, No Cyanosis, No Edema, Chronic spastic arms and legs, chronic ataxia, chronic bedbound
Skin: Warm and Dry; No Rash or Jaundice
Neuro: AO x 3
Psych: Calm
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
chronic nystagmus impaired vision/visual field, chronic neurogenic bladder, HTN, hx DVT, anxiety/depression, and gout brought in by family d/t concerns aspiration, overall progressive weakness physical deconditioning, and concerns unable to continue
care for needs at home. ED evaluation notable for uncontrolled hypertension diastolic improved/resolved, however, with restart home antihypertensives. Patient otherwise in no acute distress, stable respiratory status on room air. Labs and
imaging unremarkable.
Observation MedSurg
All meds crushed via G-tube with warm water dilution prior to administration
#Acute on chronic dysphagia
#Chronic G-tube for supplemental fluid resuscitation
-Typically on minced moist food with nectar thick liquids has been coughing past 24 hours
-Does thickened chocolate Ensure 3 times daily
-Continue water bolus 250 cc flush every 6 hours G-tube
-Speech therapy eval with VSE appreciated
-Consult dietary
-Consult PT/OT/case management appreciated SNF rehab
CT head: No acute intracranial abnormality. No acute intracranial hemorrhage. Small anterior right paramidline calvarial fadia hole prior history of pontine hemorrhage per mother
Brain MRI appreciated Focal area of susceptibility blooming from hemosiderin deposition within the brenda and extending superiorly into the midbrain, from previous pontine hemorrhage. Increased T2 and FLAIR signal within the anterior two thirds of
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 No evidence of acute intracranial abnormality.
CXR: Mild lingular atelectasis. Slightly enlarged heart though possibly accentuated by a diminished degree of inspiration no heart failure no PNA
#Hx Pontine bleed April 2023 with Paralysis/spastic arms legs/Chronic generalized neuropathy
#Hx Chronic nystagmus causing impaired vision can see central visual field and visual field from 11-1 o'clock
-Continue Valium 2.5 mg a.m., 5 mg at bedtime, 5 mg p.o. twice daily as needed spasms
-Continue baclofen 5 mg p.o. 3 times daily
-Continue amantadine 100 mg via G-tube daily
-Patient started on Lyrica week one 1 capsule 25 mg hs x7 days then(12/13- 12/19)
25 mg every 12 hours x 7 days (12/20- 12/26)
then 50 mg bid x 7 days (12/27-01/02)
then 100 mg bid maintenance 01/03 and on
-Patient follows with Dr. Hallie Liu at [facility] who prescribed above Lyrica regimen
#Chronic neurogenic bladder 2/2 paralysis from stroke
-Patient wears [place] catheter
#Chronic generalized hyperhidrosis
-Mother reports keeps room cool does have fan but not pointing at patient as exacerbates his neuropathy
#HTN
#intermittent Diastolic HTN
-Continue Bystolic 10 mg a.m., 5 mg at bedtime
-prn hydralazine (has not required)
-Cardio eval appreciated Amlodipine 5 mg daily started, cont
#Hx DVT bilateral lower legs May 2023 was on Eliquis then Lovenox which was stopped September 2023
#Hx tuberculosis approximately age 14-15
#Anxiety/depression
-Continue BuSpar 10 mg G-tube . 3 times daily
-Continue Seroquel 25 mg at bedtime
#Gout hx
Dvt proph
SCDs
full Code
discussed with patient and patient's sister Madhuri
I spent a total of 55 minutes with the patient or on the floor. More than 50% of this time involved counseling and coordination of care.
Anticipated Discharge: 24 - 48 hours
Subjective/Interval History
-
Date of Service: December 18, 2023
No acute distress. Appears comfortable at this time. Sister Madhuri present during evaluation.
Objective Data
-
Vital Signs:
Vital Signs
Temp Pulse Resp BP Pulse Ox
97.4 F 50 16 114/76 97
12/18/23 03:11 12/18/23 03:11 12/18/23 03:11 12/18/23 03:11 12/18/23 03:11
I&O
12/17/23 12/18/23 12/19/23
06:59 06:59 06:59
Intake Total 1700 / 1700 590 / 590
Output Total 2275 / 2275 710 / 710
Balance -575 / -575 -120 / -120
[2023-12-18] MEDS: THERAGRAN 1 TABLET TUBE (08:47)
[2023-12-18] MEDS: BYSTOLIC 10 MG TUBE (08:47)
[2023-12-18] MEDS: LIORESAL 5 MG TUBE ×3 (08:47→21:41)
[2023-12-18] MEDS: BUSPAR 10 MG TUBE ×3 (08:48→21:41)
[2023-12-18] MEDS: SYMMETREL SYRUP 100 MG TUBE (08:48)
[2023-12-18] MEDS: DESENEX/MITRAZOL/ZEASORB 1 APPLIC TOPICAL ×2 (08:48→21:42)
[2023-12-18] MEDS: NORVASC 5 MG TUBE (08:49)
[2023-12-18] MEDS: VALIUM 2.5 MG TUBE (08:49)
[2023-12-18] MEDS: MIRALAX 17 GRAMS TUBE (08:49)
--- NOTE | 2023-12-18 11:44 | W.PN.CARDCBS ---
Today's Communication / Plan
-
Continue Bystolic 10 mg in a.m. and 5 mg in p.m. Continue amlodipine 5 mg daily.
Continue to follow blood pressure trends over next 24 to 48 hours.
If blood pressures not improved would add spironolactone 12.5 mg daily
Impression / Plan
-
Primary Yield Analyst: none prior to admission
Assessment:
Presentation with acute on chronic dysphagia
Hypertension
LVH by echo 04/2023 at [place]
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
Dysphagia with chronic G-tube supplementation
Generalized neuropathy
Significant nystagmus
Neurogenic bladder
Generalized hyperhidrosis
History of bilateral lower extremity DVT
Anxiety/depression
Angioedema with lisinopril
History of gout
ECHO 04/2023 per mother: Preserved EF, LVH
Plan:
-Continue Bystolic and amlodipine 5 mg daily. Blood pressure today is improving. Will follow over the next 24 hours. If still having elevated diastolic readings would add spironolactone. This would need following of potassium.
-Potassium from December 15 was 4.5 and normal.
-discussed some degree of HTN may be secondary to intermittent agitation, restlessness, discomfort
-Echo from 04/2023 at [place] reportedly with preserved EF and evidence of LVH
Progress Note - Yield Analyst
Subjective
Date of Service: December 18, 2023
Denies complaints.
Objective
Labs:
12/16/23 09:26
12/16/23 09:
Labs
Hgb 14.3 g/dL (13.0-18.0) 12/16/23 09:
Hct 44.4 % (39.0-52.0) 12/16/23 09:26
Plt Count 195 10^3/uL (130-400) 12/16/23 09:26
Sodium 137 mmol/L (135-145) 12/16/23 09:26
Potassium 4.5 mmol/L (3.5-5.1) 12/16/23 09:26
BUN 15 mg/dl (9-20) 12/16/23 09:26
Creatinine 0.7 mg/dL (0.7-1.3) 12/16/23 09:26
Glucose 101 mg/dl (70-99) H 12/16/23 09:26
Vital Signs and I&O:
Vital Signs
Temp Pulse Resp BP Pulse Ox
97.8 F 65 16 114/76 98
12/18/23 07:10 12/18/23 07:10 12/18/23 07:10 12/18/23 03:11 12/18/23 07:10
Vital Signs
Temp Pulse Resp BP Pulse Ox
97.8 F 65 16 114/76 98
12/18/23 07:10 12/18/23 07:10 12/18/23 07:10 12/18/23 03:11 12/18/23 07:10
Intake & Output
12/16/23 12/17/23 12/18/23 12/19/23
06:59 06:59 06:59 06:59
Intake Total 1200 / 1200 1700 / 1700 590 / 590
Output Total 1675 / 1675 2275 / 2275 710 / 710
Balance -475 / -475 -575 / -575 -120 / -120
Physical Exam
Physical Exam
GEN: No distress, awake,
HEENT: supple, anicteric, mmm
LUNGS: CTA, no wheezes/rales
CV: Reg, S1/S2, 1/6 syst LSB, no murmur
ABD: soft, BS+, NT/ND
EXT: No edema
NEURO: Generalized myopathy, nystagmus
SKIN: No rash
[2023-12-18] MEDS: ZOLOFT ORAL CONCENTRATE 100 MG TUBE (13:35)
[2023-12-18] MEDS: MELATONIN 3 MG TUBE (21:41)
[2023-12-18] MEDS: LYRICA 25 MG TUBE (21:41)
[2023-12-18] MEDS: BYSTOLIC 5 MG TUBE (21:41)
[2023-12-18] MEDS: VALIUM 5 MG TUBE (21:41)
[2023-12-18] MEDS: SEROQUEL 25 MG TUBE (21:41)
[2023-12-19 03:16] VITALS: BP 139/79
[2023-12-19] MEDS: TYLENOL ORAL SOLUTION 650 MG TUBE ×2 (03:49→20:07)
--- NOTE | 2023-12-19 06:57 | W.PN.HOSP.TC ---
Today's Communication/Plan
-
blood pressure control
addition Aldactone as per Cardio
discharge planning SNF rehab
Assessment / Plan
Assessment / Plan
Physical Exam
General: Comfortable and Conversant; No Pain, Fever or Chills
HEENT: NormoCephalic, Anicteric, [place] Conjunctivae, No Ptosis, chronic nystagmus with peripheral field visual loss can see central vision and 11-1 o'clock, old healed trach site
Respiratory: Clear; No Wheezes, Rales or Rhonchi
Cardiac: S1/S2 and Bradycardia; No Murmur, Rub, Gallop or Peripheral Edema
GI: Soft, Non Tender, Non Distended, Normal Bowel Sounds, G-tube in place 16 [place]
Genito-urinary: Chronic Saenz
Musculoskeletal: No Clubbing, No Cyanosis, No Edema, Chronic spastic arms and legs, chronic ataxia, chronic bedbound
Skin: Warm and Dry; No Rash or Jaundice
Neuro: AO x 3
Psych: Calm
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
chronic nystagmus impaired vision/visual field, chronic neurogenic bladder, HTN, hx DVT, anxiety/depression, and gout brought in by family d/t concerns aspiration, overall progressive weakness physical deconditioning, and concerns unable to continue
care for needs at home. ED evaluation notable for uncontrolled hypertension diastolic improved/resolved, however, with restart home antihypertensives. Patient otherwise in no acute distress, stable respiratory status on room air. Labs and
imaging unremarkable.
Observation MedSurg
All meds crushed via G-tube with warm water dilution prior to administration
#Acute on chronic dysphagia
#Chronic G-tube for supplemental fluid resuscitation
-Typically on minced moist food with nectar thick liquids has been coughing past 24 hours
-Does thickened chocolate Ensure 3 times daily
-Continue water bolus 250 cc flush every 6 hours G-tube
-Speech therapy eval with VSE appreciated
-Consult dietary
-Consult PT/OT/case management appreciated SNF rehab
CT head: No acute intracranial abnormality. No acute intracranial hemorrhage. Small anterior right paramidline calvarial fadia hole prior history of pontine hemorrhage per mother
Brain MRI appreciated Focal area of susceptibility blooming from hemosiderin deposition within the brenda and extending superiorly into the midbrain, from previous pontine hemorrhage. Increased T2 and FLAIR signal within the anterior two thirds of
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 No evidence of acute intracranial abnormality.
CXR: Mild lingular atelectasis. Slightly enlarged heart though possibly accentuated by a diminished degree of inspiration no heart failure no PNA
#Hx Pontine bleed April 2023 with Paralysis/spastic arms legs/Chronic generalized neuropathy
#Hx Chronic nystagmus causing impaired vision can see central visual field and visual field from 11-1 o'clock
-Continue Valium 2.5 mg a.m., 5 mg at bedtime, 5 mg p.o. twice daily as needed spasms
-Continue baclofen 5 mg p.o. 3 times daily
-Continue amantadine 100 mg via G-tube daily
-Patient started on Lyrica week one 1 capsule 25 mg hs x7 days then(12/13- 12/19)
25 mg every 12 hours x 7 days (12/20- 12/26)
then 50 mg bid x 7 days (12/27-01/02)
then 100 mg bid maintenance 01/03 and on
-Patient follows with Dr. Hallie Liu at [facility] who prescribed above Lyrica regimen
#Chronic neurogenic bladder 2/2 paralysis from stroke
-Patient wears [place] catheter
#Chronic generalized hyperhidrosis
-Mother reports keeps room cool does have fan but not pointing at patient as exacerbates his neuropathy
#HTN
#intermittent Diastolic HTN
-Continue Bystolic 10 mg a.m., 5 mg at bedtime
-prn hydralazine (has not required)
-Cardio eval appreciated Amlodipine 5 mg daily started, aldactone 12.5 mg later added. Follow up BMP
#Hx DVT bilateral lower legs May 2023 was on Eliquis then Lovenox which was stopped September 2023
#Hx tuberculosis approximately age 14-15
#Anxiety/depression
-Continue BuSpar 10 mg G-tube . 3 times daily
-Continue Seroquel 25 mg at bedtime
#Gout hx
Dvt proph
SCDs
full Code
I spent a total of 35 minutes with the patient or on the floor. More than 50% of this time involved counseling and coordination of care.
Anticipated Discharge: 24 - 48 hours
Subjective/Interval History
-
Date of Service: December 19, 2023
no acute distress. appears comfortable.
Objective Data
-
Vital Signs:
Vital Signs
Temp Pulse Resp BP Pulse Ox
97.8 F 61 16 139/79 97
12/19/23 03:16 12/19/23 03:16 12/19/23 03:16 12/19/23 03:16 12/19/23 03:16
I&O
12/17/23 12/18/23 12/19/23
06:59 06:59 06:59
Intake Total 1700 / 1700 590 / 590 1400 / 1400
Output Total 2275 / 2275 710 / 710 1325 / 1325
Balance -575 / -575 -120 / -120 75 / 75
[2023-12-19 07:47] VITALS: BP 123/84
[2023-12-19] MEDS: NORVASC 5 MG TUBE (08:20)
[2023-12-19] MEDS: VALIUM 2.5 MG TUBE (08:20)
[2023-12-19] MEDS: ZOLOFT ORAL CONCENTRATE 100 MG TUBE (08:20)
[2023-12-19] MEDS: BUSPAR 10 MG TUBE ×3 (08:21→21:22)
[2023-12-19] MEDS: LIORESAL 5 MG TUBE ×3 (08:21→21:00)
[2023-12-19] MEDS: BYSTOLIC 10 MG TUBE (08:21)
[2023-12-19] MEDS: SYMMETREL SYRUP 100 MG TUBE (08:21)
[2023-12-19] MEDS: THERAGRAN 1 TABLET TUBE (08:21)
[2023-12-19] MEDS: MIRALAX 17 GRAMS TUBE (08:21)
[2023-12-19] MEDS: DESENEX/MITRAZOL/ZEASORB 1 APPLIC TOPICAL ×2 (08:22→20:06)
--- NOTE | 2023-12-19 09:47 | W.PN.CARDCBS ---
Today's Communication / Plan
-
Add Aldactone 12.5 mg daily.
Continue Bystolic 10 mg in the a.m. and 5 mg in p.m.
Will continue amlodipine 5 daily for now. If blood pressure drops would stop amlodipine.
Will check basic metabolic panel in AM.
Impression / Plan
-
Primary Uranium Processing Supervisor: none prior to admission
Assessment:
Presentation with acute on chronic dysphagia
Hypertension
LVH by echo 04/2023 at [place]
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
Dysphagia with chronic G-tube supplementation
Generalized neuropathy
Significant nystagmus
Neurogenic bladder
Generalized hyperhidrosis
History of bilateral lower extremity DVT
Anxiety/depression
Angioedema with lisinopril
History of gout
ECHO 04/2023 per mother: Preserved EF, LVH
Plan:
-BP remains borderline. Will add Aldactone today 12.5mg daily. Check Basic met in AM
-Cont Bystolic 105 and amlodipine 5mg daily for now
-Potassium from December 15 was 4.5 and normal.
-discussed some degree of HTN may be secondary to intermittent agitation, restlessness, discomfort
-Echo from 04/2023 at [place] reportedly with preserved EF and evidence of LVH
Progress Note - Uranium Processing Supervisor
Subjective
Date of Service: December 19, 2023
BP remains borderline. denies cp/sob
Objective
Labs:
12/16/23 09:26
12/16/23 09:26
Labs
Hgb 14.3 g/dL (13.0-18.0) 12/16/23 09:26
Hct 44.4 % (39.0-52.0) 12/16/23 09:26
Plt Count 195 10^3/uL (130-400) 12/16/23 09:26
Sodium 137 mmol/L (135-145) 12/16/23 09:26
Potassium 4.5 mmol/L (3.5-5.1) 12/16/23 09:26
BUN 15 mg/dl (9-20) 12/16/23 09:26
Creatinine 0.7 mg/dL (0.7-1.3) 12/16/23 09:26
Glucose 101 mg/dl (70-99) H 12/16/23 09:26
Vital Signs and I&O:
Vital Signs
Temp Pulse Resp BP Pulse Ox
97.8 F 51 18 123/84 97
12/19/23 07:47 12/19/23 07:47 12/19/23 07:47 12/19/23 07:47 12/19/23 07:47
Vital Signs
Temp Pulse Resp BP Pulse Ox
97.8 F 51 18 123/84 97
12/19/23 07:47 12/19/23 07:47 12/19/23 07:47 12/19/23 07:47 12/19/23 07:47
Intake & Output
12/17/23 12/18/23 12/19/23 12/20/23
06:59 06:59 06:59 06:59
Intake Total 1700 / 1700 590 / 590 1400 / 1400
Output Total 2275 / 2275 710 / 710 1325 / 1325
Balance -575 / -575 -120 / -120 75 / 75
Physical Exam
Physical Exam
GEN: No distress, awake,
HEENT: supple, anicteric, mmm, nystagmus
LUNGS: CTA, no wheezes/rales
CV: Reg, S1/S2, 1/6 syst LSB, no gallop
ABD: soft, BS+, NT/ND
EXT: No edema
NEURO: general weakness
SKIN: No rash
[2023-12-19] MEDS: ALDACTONE 12.5 MG PO (11:26)
[2023-12-19 11:39] VITALS: BP 130/85
[2023-12-19 15:40] VITALS: BP 147/96
[2023-12-19 19:35] VITALS: BP 138/86
[2023-12-19] MEDS: LYRICA 25 MG TUBE (21:00)
[2023-12-19] MEDS: BYSTOLIC 5 MG TUBE (21:21)
[2023-12-19] MEDS: SEROQUEL 25 MG TUBE (21:22)
[2023-12-19] MEDS: MELATONIN 3 MG TUBE (21:25)
[2023-12-19] MEDS: VALIUM 5 MG TUBE (21:25)
[2023-12-19 21:27] LABS: Glucose - Point of Care 110 mg/dl (70-99)
--- NOTE | 2023-12-19 21:30 | PTCARENOTE ---
Pt c/o pain 'all over', agitated and diaphoretic. PRN Tylenol given, also humberto lyrica and baclofen. VSS 139/85, 70, 97.7, RR 20, Pox 96% RA. BG 110. Despite all meds given, pt continued to c/o pain, SUPERINTENDENT OF GENERATION analysis consultant made aware, no new orders at this
time.
[2023-12-19 23:08] VITALS: BP 107/75
[2023-12-20 03:11] VITALS: BP 131/84
[2023-12-20] MEDS: TYLENOL ORAL SOLUTION 650 MG TUBE ×2 (03:21→09:45)
[2023-12-20] MEDS: VALIUM 5 MG TUBE ×3 (03:21→21:29)
[2023-12-20 07:24] LABS: Blood Urea Nitrogen 17 mg/dl (9-20); Carbon Dioxide 23 mmol/L (22-30); Estimated Creatinine Clearance > 125 ml/min; eGFR > 60.00
[2023-12-20 07:43] LABS: Calcium 9.8 mg/dl (8.4-10.2); Chloride 103 mmol/L (98-107); Glucose 98 mg/dl (70-99); Potassium 4.2 mmol/L (3.5-5.1); Sodium 139 mmol/L (135-145)
[2023-12-20 08:45] VITALS: BP 134/83
[2023-12-20] MEDS: LIORESAL 5 MG TUBE ×3 (09:30→21:29)
[2023-12-20] MEDS: SYMMETREL SYRUP 100 MG TUBE (09:30)
[2023-12-20] MEDS: ALDACTONE 12.5 MG PO (09:31)
[2023-12-20] MEDS: ZOLOFT ORAL CONCENTRATE 100 MG TUBE (09:31)
[2023-12-20] MEDS: VALIUM 2.5 MG TUBE (09:32)
[2023-12-20] MEDS: NORVASC 5 MG TUBE (09:32)
[2023-12-20] MEDS: BYSTOLIC 10 MG TUBE (09:32)
[2023-12-20] MEDS: BUSPAR 10 MG TUBE ×3 (09:34→21:29)
[2023-12-20] MEDS: THERAGRAN 1 TABLET TUBE (09:34)
[2023-12-20] MEDS: MIRALAX TUBE (09:34)
[2023-12-20] MEDS: DESENEX/MITRAZOL/ZEASORB 1 APPLIC TOPICAL ×2 (09:36→21:33)
[2023-12-20 10:35] VITALS: BP 142/94; PULSE 58
[2023-12-20 11:37] VITALS: BP 155/91
--- NOTE | 2023-12-20 12:18 | CM ---
Addendum entered by Fara Álvarez 12/20/23 16:11:
Call from [employer] with approval
7 days 12/20-12/26 level I
NRD 12/26 Manish [phone] (p) [phone] (f)
Case# [id number]
Original Note:
CM reviewed pt with Dr. Meza- close for dc
Bed confirmed at [facility] with Grecia/admissions
[employer] auth initiated via [employer] and clinicals faxed
Auth pending ref# [id number]
Per Grecia, if [employer] denied, SNF will need further financial info from spouse to discuss payor source
Bedside update to pt and spouse
Spouse will be at work tomorrow and requests updates on her cell
Discharge Disposition- [facility] SNF pending [employer] auth
--- NOTE | 2023-12-20 12:26 | W.PN.CARDCBS ---
Today's Communication / Plan
-
Blood pressure much improved
Will sign off
Impression / Plan
-
Primary Treating Machine Operator: none prior to admission
Assessment:
Presentation with acute on chronic dysphagia
Hypertension
LVH by echo 04/2023 at [place]
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
Dysphagia with chronic G-tube supplementation
Generalized neuropathy
Significant nystagmus
Neurogenic bladder
Generalized hyperhidrosis
History of bilateral lower extremity DVT
Anxiety/depression
Angioedema with lisinopril
History of gout
ECHO 04/2023 per mother: Preserved EF, LVH
Plan:
Blood pressure control much improved with the addition of Aldactone
Continue Norvasc and Bystolic
Discussed with at bedside
No further Recs, will sign off, call with questions
Progress Note - Treating Machine Operator
Subjective
Date of Service: December 20, 2023
No complaints
Objective
Labs:
12/16/23 09:26
12/20/23 05:46
Labs
Hgb 14.3 g/dL (13.0-18.0) 12/16/23 09:26
Hct 44.4 % (39.0-52.0) 12/16/23 09:26
Plt Count 195 10^3/uL (130-400) 12/16/23 09:26
Sodium 139 mmol/L (135-145) 12/20/23 05:46
Potassium 4.2 mmol/L (3.5-5.1) 12/20/23 05:46
BUN 17 mg/dl (9-20) 12/20/23 05:46
Creatinine 0.8 mg/dL (0.7-1.3) 12/20/23 05:46
Glucose 98 mg/dl (70-99) 12/20/23 05:46
Vital Signs and I&O:
Vital Signs
Temp Pulse Resp BP Pulse Ox
97.3 F 59 15 155/91 98
12/20/23 11:37 12/20/23 11:37 12/20/23 11:37 12/20/23 11:37 12/20/23 11:37
Vital Signs
Temp Pulse Resp BP Pulse Ox
97.3 F 59 15 155/91 98
12/20/23 11:37 12/20/23 11:37 12/20/23 11:37 12/20/23 11:37 12/20/23 11:37
Intake & Output
12/18/23 12/19/23 12/20/23 12/21/23
06:59 06:59 06:59 06:59
Intake Total 590 / 590 1400 / 1400 360 / 360
Output Total 710 / 710 1325 / 1325 1000 / 1000
Balance -120 / -120 75 / 75 -640 / -640
Physical Exam
Physical Exam
General: Well developed, well nourished in NAD.
Neck: Supple, no JVD, HJR, carotids +2 B/L, no bruits bilaterally.
Heart: Non displaced PMI, RRR, no murmurs, No S3, S4, no rubs.
Lungs: Scattered rhonchi
Extremities: No clubbing, cyanosis or edema bilaterally.
Neuro: Aphasic speech
--- NOTE | 2023-12-20 12:34 | W.PN.HOSP.TC ---
Today's Communication/Plan
-
IDDSI 5
cont anti-htn meds
dc ready, cm aware
Assessment / Plan
Assessment / Plan
Physical Exam
General: Comfortable and Conversant; No Pain, Fever or Chills
HEENT: NormoCephalic, Anicteric, [place] Conjunctivae, No Ptosis, chronic nystagmus with peripheral field visual loss can see central vision and 11-1 o'clock, old healed trach site
Respiratory: Clear; No Wheezes, Rales or Rhonchi
Cardiac: S1/S2 and Bradycardia; No Murmur, Rub, Gallop or Peripheral Edema
GI: Soft, Non Tender, Non Distended, Normal Bowel Sounds, G-tube in place 16 [place]
Genito-urinary: Chronic Saenz
Musculoskeletal: No Clubbing, No Cyanosis, No Edema, Chronic spastic arms and legs, chronic ataxia, chronic bedbound
Skin: Warm and Dry; No Rash or Jaundice
Neuro: AO x 3
Psych: Calm
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
chronic nystagmus impaired vision/visual field, chronic neurogenic bladder, HTN, hx DVT, anxiety/depression, and gout brought in by family d/t concerns aspiration, overall progressive weakness physical deconditioning, and concerns unable to continue
care for needs at home. ED evaluation notable for uncontrolled hypertension diastolic improved/resolved, however, with restart home antihypertensives. Patient otherwise in no acute distress, stable respiratory status on room air. Labs and
imaging unremarkable.
Observation MedSurg
All meds crushed via G-tube with warm water dilution prior to administration
#chronic dysphagia
#Chronic G-tube for supplemental fluid resuscitation
-Typically on minced moist food with nectar thick liquids has been coughing past 24 hours
-Does thickened chocolate Ensure 3 times daily
-Continue water bolus 250 cc flush every 6 hours G-tube
-Speech therapy eval with VSE appreciated
-Consult dietary
-Consult PT/OT/case management appreciated SNF rehab
CT head: No acute intracranial abnormality. No acute intracranial hemorrhage. Small anterior right paramidline calvarial fadia hole prior history of pontine hemorrhage per mother
Brain MRI appreciated Focal area of susceptibility blooming from hemosiderin deposition within the brenda and extending superiorly into the midbrain, from previous pontine hemorrhage. Increased T2 and FLAIR signal within the anterior two thirds of
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 No evidence of acute intracranial abnormality.
CXR: Mild lingular atelectasis. Slightly enlarged heart though possibly accentuated by a diminished degree of inspiration no heart failure no PNA
#Hx Pontine bleed April 2023 with Paralysis/spastic arms legs/Chronic generalized neuropathy
#Hx Chronic nystagmus causing impaired vision can see central visual field and visual field from 11-1 o'clock
-Continue Valium 2.5 mg a.m., 5 mg at bedtime, 5 mg p.o. twice daily as needed spasms
-Continue baclofen 5 mg p.o. 3 times daily
-Continue amantadine 100 mg via G-tube daily
-Patient started on Lyrica week one 1 capsule 25 mg hs x7 days then(12/13- 12/19)
25 mg every 12 hours x 7 days (12/20- 12/26)
then 50 mg bid x 7 days (12/27-01/02)
then 100 mg bid maintenance 01/03 and on
-Patient follows with Dr. Hallie Liu at [facility] who prescribed above Lyrica regimen
#Chronic neurogenic bladder 2/2 paralysis from stroke
-Patient wears [place] catheter
#Chronic generalized hyperhidrosis
-Mother reports keeps room cool does have fan but not pointing at patient as exacerbates his neuropathy
#HTN
#intermittent Diastolic HTN
-Continue Bystolic 10 mg a.m., 5 mg at bedtime
-prn hydralazine (has not required)
-Cardio eval appreciated Amlodipine 5 mg daily started, aldactone 12.5 mg later added. Follow up BMP
#Hx DVT bilateral lower legs May 2023 was on Eliquis then Lovenox which was stopped September 2023
#Hx tuberculosis approximately age 14-15
#Anxiety/depression
-Continue BuSpar 10 mg G-tube . 3 times daily
-Continue Seroquel 25 mg at bedtime
#Gout hx
Dvt proph
SCDs
full Code
Anticipated Discharge: Within 24 hours
Subjective/Interval History
-
Date of Service: December 20, 2023
No acute events overnight
Objective Data
-
Labs:
Laboratory Results
12/20/23
05:46
Sodium 139
Potassium 4.2
Chloride 103
Carbon Dioxide 23
BUN 17
Creatinine 0.8
Glucose 98
Calcium 9.8
Vital Signs:
Vital Signs
Temp Pulse Resp BP Pulse Ox
97.3 F 59 15 155/91 98
12/20/23 11:37 12/20/23 11:37 12/20/23 11:37 12/20/23 11:37 12/20/23 11:37
I&O
12/19/23 12/20/23 12/21/23
06:59 06:59 06:59
Intake Total 1400 / 1400 360 / 360
Output Total 1325 / 1325 1000 / 1000
Balance 75 / 75 -640 / -640
Review of Systems
-
History Source: Patient
All other systems: Not reviewed unless documented
Data Reviewed
-
Diagnostic Radiology: Image personally visualized and interpreted and Report Reviewed by me
CT Scan: Image personally visualized and interpreted and Report Reviewed by me
MRI: Report Reviewed by me
Labs: Labs Reviewed by me
[2023-12-20 15:53] VITALS: BP 135/91
--- NOTE | 2023-12-20 17:00 | PTCARENOTE ---
Air overlay placed on patient's bed. Optifoam clean, dry and intact on sacrum. Patient was repositioned.
[2023-12-20] MEDS: SEROQUEL 25 MG TUBE (21:28)
[2023-12-20] MEDS: BYSTOLIC 5 MG TUBE (21:29)
[2023-12-20] MEDS: MELATONIN 3 MG TUBE (21:33)
[2023-12-20] MEDS: LYRICA 25 MG TUBE (21:33)
[2023-12-20 23:02] VITALS: BP 121/78
[2023-12-21] MEDS: TYLENOL ORAL SOLUTION 650 MG TUBE ×2 (02:28→09:53)
[2023-12-21 06:38] LABS: Hemoglobin 13.1 g/dL (13.0-18.0); Mean Corp Hgb Conc. 33.6 g/dL (33.0-37.0); Mean Corpuscular Hgb 28.4 pg (27.0-31.0); Mean Corpuscular Volume 84.6 fL (80.0-94.0); Mean Platelet Volume 10.4 fL (7.4-10.4); Platelet Count 244 10^3/uL (130-400); Red Blood Cell Count 4.61 10^6/uL (4.70-6.10); Red Cell Dist. Width 15.5 % (11.5-14.5); White Blood Cell Count 10.9 10^3/uL (4.8-10.8)
[2023-12-21 07:09] LABS: Blood Urea Nitrogen 17 mg/dl (9-20); Calcium 9.6 mg/dl (8.4-10.2); Carbon Dioxide 25 mmol/L (22-30); Chloride 103 mmol/L (98-107); Estimated Creatinine Clearance > 125 ml/min; Glucose 103 mg/dl (70-99); Potassium 4.4 mmol/L (3.5-5.1); Sodium 139 mmol/L (135-145); eGFR > 60.00
[2023-12-21 07:20] VITALS: BP 125/74
[2023-12-21] MEDS: ZOLOFT ORAL CONCENTRATE 100 MG TUBE (09:28)
[2023-12-21] MEDS: ALDACTONE 12.5 MG PO (09:28)
[2023-12-21] MEDS: LIORESAL 5 MG TUBE (09:29)
[2023-12-21] MEDS: LYRICA 25 MG TUBE (09:29)
[2023-12-21] MEDS: SYMMETREL SYRUP 100 MG TUBE (09:29)
[2023-12-21] MEDS: THERAGRAN 1 TABLET TUBE (09:29)
[2023-12-21] MEDS: BYSTOLIC 10 MG TUBE (09:29)
[2023-12-21] MEDS: NORVASC 5 MG TUBE (09:29)
[2023-12-21] MEDS: BUSPAR 10 MG TUBE (09:30)
[2023-12-21] MEDS: VALIUM 2.5 MG TUBE (09:30)
[2023-12-21] MEDS: DESENEX/MITRAZOL/ZEASORB 1 APPLIC TOPICAL (09:43)
[2023-12-21] MEDS: MIRALAX TUBE (09:47)
--- NOTE | 2023-12-21 11:25 | CM ---
[facility] 12/21/23 12:38:
Reviewed with WO- needs air mattress
Update to [facility] and they will order
Addendum [facility] 12/21/23 11:32:
1430 BLS pickup
Father aware along with SNF admissions
Original Note:
CM reviewed pt with Dr Meza and pt ready for dc
[employer] auth obtained day prior for [facility]
Bed confirmed with [facility]/admissions
Call to spouse with update and she is in agreement with plan
Bedside update to pt and father
7 days 12/20-12/26 level I
NRD 12/26 Manish [phone] (p) [phone] (f)
Case# [id number]
Medical necessity and transport form on chart
Ac[employer]ical [employer]pent[employer] Supervisor to arrange for BLS transport
Updated clinicals sent to SNF via [facility] per request
Discharge Disposition- [facility] via ambulance
Phone- [phone] Fax- [phone]
--- NOTE | 2023-12-21 11:32 | W.PN.HOSP.TC ---
Addendum entered and electronically signed by Mega Meza MD 12/22/23 15:33:
[id number]
Original Note:
Today's Communication/Plan
-
lyrica regimen
bp control
bmp in 1 week
modified diet, tube feedings
Assessment / Plan
Assessment / Plan
Physical Exam
General: Comfortable and Conversant; No Pain, Fever or Chills
HEENT: NormoCephalic, Anicteric, [place] Conjunctivae, No Ptosis, chronic nystagmus with peripheral field visual loss can see central vision and 11-1 o'clock, old healed trach site
Respiratory: Clear; No Wheezes, Rales or Rhonchi
Cardiac: S1/S2 and Bradycardia; No Murmur, Rub, Gallop or Peripheral Edema
GI: Soft, Non Tender, Non Distended, Normal Bowel Sounds, G-tube in place 16 [place]
Genito-urinary: Chronic Saenz
Musculoskeletal: No Clubbing, No Cyanosis, No Edema, Chronic spastic arms and legs, chronic ataxia, chronic bedbound
Skin: Warm and Dry; No Rash or Jaundice
Neuro: AO x 3
Psych: Calm
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
chronic nystagmus impaired vision/visual field, chronic neurogenic bladder, HTN, hx DVT, anxiety/depression, and gout brought in by family d/t concerns aspiration, overall progressive weakness physical deconditioning, and concerns unable to continue
care for needs at home. ED evaluation notable for uncontrolled hypertension diastolic improved/resolved, however, with restart home antihypertensives. Patient otherwise in no acute distress, stable respiratory status on room air. Labs and
imaging unremarkable.
Observation MedSurg
All meds crushed via G-tube with warm water dilution prior to administration
#chronic dysphagia
#Chronic G-tube for supplemental fluid resuscitation
-Typically on minced moist food with nectar thick liquids
-Does thickened chocolate Ensure 3 times daily
-Continue water bolus 250 cc flush every 6 hours G-tube
-Speech therapy eval with VSE appreciated
-Consult dietary
-Consult PT/OT/case management appreciated SNF rehab
CT head: No acute intracranial abnormality. No acute intracranial hemorrhage. Small anterior right paramidline calvarial fadia hole prior history of pontine hemorrhage per mother
Brain MRI appreciated Focal area of susceptibility blooming from hemosiderin deposition within the brenda and extending superiorly into the midbrain, from previous pontine hemorrhage. Increased T2 and FLAIR signal within the anterior two thirds of
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 No evidence of acute intracranial abnormality.
CXR: Mild lingular atelectasis. Slightly enlarged heart though possibly accentuated by a diminished degree of inspiration no heart failure no PNA
#Hx Pontine bleed April 2023 with Paralysis/spastic arms legs/Chronic generalized neuropathy
#Hx Chronic nystagmus causing impaired vision can see central visual field and visual field from 11-1 o'clock
-Continue Valium 2.5 mg a.m., 5 mg at bedtime, 5 mg p.o. twice daily as needed spasms
-Continue baclofen 5 mg p.o. 3 times daily
-Continue amantadine 100 mg via G-tube daily
-Patient started on Lyrica week one 1 capsule 25 mg hs x7 days then(12/13- 12/19)
25 mg every 12 hours x 7 days (12/20- 12/26)
then 50 mg bid x 7 days (12/27-01/02)
then 100 mg bid maintenance 01/03 and on
-[facility] above Lyrica regimen
#Chronic neurogenic bladder 2/2 paralysis from stroke
-Patient wears [place] catheter
#Chronic generalized hyperhidrosis
-Mother reports keeps room cool does have fan but not pointing at patient as exacerbates his neuropathy
#HTN
#intermittent Diastolic HTN
-Continue Bystolic 10 mg a.m., 5 mg at bedtime
-prn hydralazine (has not required)
-Cardio eval appreciated Amlodipine 5 mg daily started, aldactone 12.5 mg later added
#Hx DVT bilateral lower legs May 2023 was on Eliquis then Lovenox which was stopped September 2023
#Hx tuberculosis approximately age 14-15
#Anxiety/depression
-Continue BuSpar 10 mg G-tube . 3 times daily
-Continue Seroquel 25 mg at bedtime
#Gout hx
Dvt proph
SCDs
full Code
More than 30 minutes spent in discharge including
Final examination of the patient
Summarizing hospital stay
Instructions for continuing care to all relevant caregivers
Preparation of discharge records, prescriptions, and referral forms
Total time spent (35 in minutes):
Anticipated Discharge: Today
Subjective/Interval History
-
Date of Service: December 21, 2023
no acute events
Objective Data
-
Labs:
Laboratory Results
12/21/23
06:16
WBC 10.9 H
Hgb 13.1
Hct 39.0
Plt Count 244 D
Sodium 139
Potassium 4.4
Chloride 103
Carbon Dioxide 25
BUN 17
Creatinine 0.7
Glucose 103 H
Calcium 9.6
Vital Signs:
Vital Signs
Temp Pulse Resp BP Pulse Ox
98.0 F 63 18 125/74 95
12/21/23 07:20 12/21/23 09:29 12/21/23 07:20 12/21/23 09:29 12/21/23 10:20
I&O
12/20/23 12/21/23 12/22/23
06:59 06:59 06:59
Intake Total 360 / 360 480 / 480
Output Total 1000 / 1000 1050 / 1050
Balance -640 / -640 -570 / -570
Review of Systems
-
History Source: Patient
All other systems: Not reviewed unless documented
Data Reviewed
-
Diagnostic Radiology: Image personally visualized and interpreted and Report Reviewed by me
CT Scan: Image personally visualized and interpreted and Report Reviewed by me
MRI: Report Reviewed by me
Labs: Labs Reviewed by me
--- NOTE | 2023-12-21 11:35 | W.DS.TRANS ---
DC Summary - Flask Pusher
-
Discharge Instructions:
Discharge Diagnosis/Procedures #hypertension
#chronic dysphagia
#Chronic G-tube for supplemental fluid
resuscitation
Diet Other diet
Additional Diets IDDSI 5
Activity As tolerated
Instructions:
Stand-Alone Forms:
Changes to Home Medications: Yes
Discharge Medications:
DC Medications w/original date entered in [facility]
amantadine HCl 50 mg/5 mL oral solution 100 mg feeding tube DAILY Neurological Condition 12/14/23
amlodipine 10 mg tablet 5 mg feeding tube DAILYPRN PRN high bp 12/14/23
baclofen 5 mg tablet 5 mg feeding tube TID Muscle Spasms 12/14/23
buspirone 10 mg tablet 10 mg feeding tube TID Depression 12/14/23
diazepam 5 mg tablet (Valium) 2.5 mg feeding tube DAILY Muscle Spasms 12/14/23
diazepam 5 mg tablet (Valium) 5 mg feeding tube BIDPRN PRN spasms 12/14/23
diazepam 5 mg tablet (Valium) 5 mg feeding tube HS Muscle Spasms 12/14/23
fluticasone propionate 50 mcg/actuation nasal spray,suspension 1 spray intranasal BID Congestion 12/14/23
melatonin 3 mg tablet 3 mg feeding tube HS Sleep 12/14/23
nebivolol 10 mg tablet (Bystolic) 10 mg feeding tube DAILY Blood Pressure 12/14/23
nebivolol 5 mg tablet (Bystolic) 5 mg feeding tube HS Blood Pressure 12/14/23
nystatin 100,000 unit/gram topical powder 1 applic topical BID grion 12/14/23
polyethylene glycol 3350 17 gram oral powder packet (Miralax) 17 g feeding tube DAILY Constipation 12/14/23
quetiapine 50 mg tablet (Seroquel) 25 mg feeding tube HS Mental Health/Anxiety 12/14/23
sertraline 20 mg/mL oral concentrate 100 mg feeding tube DAILY Depression 12/14/23
therapeutic multivitamin 1 tab feeding tube DAILY Supplement 12/14/23
amlodipine 5 mg tablet 5 mg feeding tube DAILY #14 tabs 12/21/23
pregabalin 25 mg capsule 25 mg feeding tube BID #10 caps 12/21/23
spironolactone 25 mg tablet 12.5 mg (1/2 x 25 mg) PO DAILY #0 tabs 12/21/23
Home Medication Changes
amlodipine 5 mg tablet 5 mg feeding tube DAILY #14 tabs 12/21/23
pregabalin 25 mg capsule 25 mg feeding tube BID #10 caps 12/21/23
spironolactone 25 mg tablet 12.5 mg (1/2 x 25 mg) PO DAILY #0 tabs 12/21/23
Pending Results: No
--- NOTE | 2023-12-21 12:25 | WOUNDNOTE ---
[facility] RN note: Patient admitted with acute on chronic dysphagia, chronic paralysis, family unable to care for him at home. Plan is SNF placement.
See H&P for complete history.
PMH: CVA 04/2023, s/p fadia hole evacuation, G tube, dysphagia, neuropathy, neurogenic bladder, HTN, DVT, anxiety/depression, gout, DVT Le's, ACL repair, prior trach.
Wound Location and type/assessment: Patient admitted with: buttocks MASD. No pressure injuries noted. L buttocks slightly chaffed. Calazime ointment being used. Patient incontinent. Condom cath being used.
Appetite: good.
Pressure redistribution devices in place: Waffle air overlay. He is immobile.
Plan: Patient incontinent of soft brown stool. Yajaira care given. Patient turned with help from [facility]. Discussed with KRYSTINA Ryder. Heels off bed with pillow.
Care plan to be updated, will sign off, call if needed.
Note to case management of equipment requested for discharge: Air mattress at SNF recommended.
[2023-12-21 12:38] VITALS: BP 137/85
--- NOTE | 2023-12-21 12:39 | CM ---
CM reviewed pt with Dr Meza and pt ready for dc
[employer] auth obtained day prior for [facility]
Bed confirmed with [facility]/admissions
Call to spouse with update and she is in agreement with plan
Bedside update to pt and father
7 days 12/20-12/26 level I
NRD 12/26 Manish [phone] (p) [phone] (f)
Case# [id number]
Medical necessity and transport form on chart
Updated clinicals sent to SNF via [facility] per request
Reviewed with WO- needs air mattress
Update to SNF and they will order
1430 BLS pickup
Father aware along with SNF admissions
Discharge Disposition- [facility] SNF via ambulance
Phone- [phone] Fax- [phone]
--- NOTE | 2023-12-21 12:40 | WOUNDNOTE ---
t/c SPD and ordered TruVue Lite boots. [facility] texted RN Britni requesting to give to patient. TOPHER Chaudhari who stated she requested an air mattress for patient at SNF.
--- NOTE | 2023-12-21 14:53 | PTCARENOTE ---
Patient discharged to [facility], transported [facility]. Patient provided hygiene, assisted in eating lunch, and changed into brief prior to discharge, L FA IV removed by this RN. Patient's belongings taken home by father prior to
transport. Paper script for patient's Lyrica provided by MD in discharge packet per facility request.
== END 2023-12-21 15:04 ==
LOC: 2 NORTH 18:45
PROVIDERS: Clinical Nurse Specialist Family Health; ADMITTING PHYSICIAN Internal Medicine; ATTENDING PHYSICIAN Internal Medicine; EMERGENCY PHYSICIAN Emergency Medicine; FAMILY PHYSICIAN Family Medicine; OTHER PHYSICIAN Internal Medicine Cardiovascular Disease
DX: R13.10 Dysphagia, unspecified (principal); R53.1 Weakness; R05.9 Cough, unspecified; R47.81 Slurred speech; H54.7 Unspecified visual loss; J98.11 Atelectasis; G90.9 Disorder of the autonomic nervous system, unspecified; G62.9 Polyneuropathy, unspecified; R61 Generalized hyperhidrosis; N31.9 Neuromuscular dysfunction of bladder, unspecified; I11.9 Hypertensive heart disease without heart failure; F41.9 Anxiety disorder, unspecified; F32.A Depression, unspecified; M10.9 Gout, unspecified; Z74.01 Bed confinement status; Z93.1 Gastrostomy status; Z86.718 Personal history of other venous thrombosis and embolism; Z86.73 Personal history of transient ischemic attack (TIA), and cerebral infarction without residual deficits; Z86.11 Personal history of tuberculosis
CPT/HCPCS: 70450; 70551; 71046; 74230; 80048; 80053; 81003; 82962; 83735; 84100; 85025; 85027; 92526; 92610; 92611; 93005; 97112; 97163; 97167; 97530; 97535; 99285; G0378

== ENCOUNTER 2024-01-03 14:04 | Emergency (ER) | payer OTHER, SELFPAY ==
[2024-01-03] VITALS (7 sets, daily range): BP systolic 115–158; BP diastolic 54–103; BMI 31.9
--- NOTE | 2024-01-03 15:19 | ED.GENMED ---
History of Present Illness
General
Chief Complaint: Catheter/Tube Problem
Time Seen by Provider: 01/03/24 15:02
Travel History
Have you had any contact with someone who has COVID-19?: No
Do you have any symptoms of coronavirus? Fever > 100 degrees, chills, cough, shortness of breath, sore throat, loss of taste or smell, muscle aches, or headache?: No
History of Present Illness
History of Present Illness:
38-year-old male with history of hemorrhagic stroke resulting paralysis presents from a senior care facility for a PEG tube replacement. The outer tubing was damaged and leaks during feedings. No other complaints
Past History
Past History
ED Past Medical History: None and Other (gout once 'a long time ago' was given Colchecine at the time)
Social History
Tobacco: Non-smoker
Personal: Single
Living: with family
Employment: Employed
Family History
Family History: Other (father has RA)
Review of Systems
Review of Systems
Allergies reviewed?: Yes
All Other Systems: ROS reviewed and negative except as documented in HPI and ROS
Phy Exam
Physical Exam
Physical Exam:
GEN: Well appearing, NAD, WDWN
HEENT: Oral mucosa moist, no scleral icterus
Cardiac: Regular rate
Lung: No respiratory distress, no tachypnea
Abdomen: Left upper quadrant gastrostomy tube site is clean dry and intact
MSK: No gross deformity or injuries
Skin: Good color, no pallor or jaundice, no rashes
Neuro: Alert, follows commands
Psych: Calm, cooperative
Course
Orders/Labs/Results
Orders:
Orders
01/03/24 15:18
CR Cont Inj Eval Tube(by Rad) Urgent
Comment:
Reason For Exam: PEG tube replacement
Vital Signs
Initial and Last Documented VS:
Initial Vital Signs
BP
158/103
01/03/24 14:07
Last Documented Vital Signs
Temp Pulse Resp BP Pulse Ox
97.5 F 76 19 128/86 95
01/03/24 14:09 01/03/24 18:45 01/03/24 18:45 01/03/24 18:00 01/03/24 17:45
MDM/Problems Addressed
MDM/Problems Addressed:
Damage to was removed after balloon was deflated with some difficulty, direct placed without difficulty and balloon inflated. Follow-up study shows good placement in the stomach
*Critical Care Note
Total Time (30-74mins, 75-104mins- exclusive of procedures): Not Applicable
ED Attending Note
-
Portions of this chart may have been created with voice recognition software.� Occasional wrong word or��sound alike� substitutions may have occurred due to the inherent limitations of voice recognition software.
Discharge Plan
Departure
Patient Disposition: Home (Routine Discharge)
Date of Disposition: 01/03/24
Time of Disposition: 15:58
Patient with high blood pressure during this ER visit?: No
Discharge Problem:
PEG tube malfunction
Instructions: Percutaneous Endoscopic Gastrostomy (DC)
Prescriptions:
No Action
amantadine HCl 50 mg/5 mL Solution
100 mg feeding tube DAILY
polyethylene glycol 3350 [Miralax] 17 gram Powder In Packet
17 g feeding tube DAILY
therapeutic multivitamin Tablet
1 tab feeding tube DAILY
melatonin 3 mg Tablet
3 mg feeding tube HS
amlodipine 10 mg Tablet
5 mg feeding tube DAILYPRN PRN (Reason: high bp)
buspirone 10 mg Tablet
10 mg feeding tube TID
nystatin 100,000 unit/gram Powder
1 applic TOPICAL BID
sertraline 20 mg/mL Concentrate
100 mg feeding tube DAILY
fluticasone propionate 50 mcg/actuation [place],Suspension
1 spray INTRANASAL BID
diazepam [Valium] 5 mg Tablet
5 mg feeding tube HS
diazepam [Valium] 5 mg Tablet
2.5 mg feeding tube DAILY
diazepam [Valium] 5 mg Tablet
5 mg feeding tube BIDPRN PRN (Reason: spasms)
quetiapine [Seroquel] 50 mg Tablet
25 mg feeding tube HS
nebivolol [Bystolic] 5 mg Tablet
5 mg feeding tube HS
nebivolol [Bystolic] 10 mg Tablet
10 mg feeding tube DAILY
baclofen 5 mg Tablet
5 mg feeding tube TID
amlodipine 5 mg Tablet
5 mg feeding tube DAILY Qty: 14 0RF
spironolactone 25 mg Tablet
12.5 mg PO DAILY Qty: 0 0RF
pregabalin 25 mg Capsule
25 mg feeding tube BID Qty: 10 0RF
Referrals:
Santos Rao I., DO [Family Provider] -
Interventions
Interventions:
*Risk Screen - Suicide Last Done: 01/03/24 14:09
*General Assessment Last Done: 01/03/24 14:09
*Neglect/Abuse Screening Last Done: 01/03/24 14:09
ED- Fall Risk Assessment Last Done: 01/03/24 19:06
*ED COVID-19 Vaccine History Last Done: 01/03/24 14:09
*Nursing Disposition Last Done: 01/03/24 19:06
OZ-Ivjwdk-Gbvqxzehac Assessment Last Done: 01/03/24 14:18
ED-Male Genitourinary Assessment Last Done: 01/03/24 14:18
Discharge Date and Time
Discharge Date/Time: 01/03/24 19:07
Print Language: ICELANDIC
== END 2024-01-03 19:07 | disposition home or self-care (01) ==
LOC: EMR 14:04
PROVIDERS: EMERGENCY PHYSICIAN Emergency Medicine; FAMILY PHYSICIAN Internal Medicine
DX: K94.23 Gastrostomy malfunction (principal); Z86.73 Personal history of transient ischemic attack (TIA), and cerebral infarction without residual deficits
CPT/HCPCS: 99283; 43762; 49465

== ENCOUNTER 2024-04-13 22:23 | Inpatient (IN) | payer OTHER, SELFPAY ==
[2024-04-13 18:56] VITALS: BP 122/74
--- NOTE | 2024-04-13 19:29 | ED.GENMED ---
History of Present Illness
General
Chief Complaint: Change in Mental Status
Source: records and spouse
Exam Limitations: clinical condition
Time Seen by Provider: 04/13/24 18:54
History of Present Illness
History of Present Illness:
39 male history of pontine bleed presents with mental status change difficulty with speech starting about 4 PM today. Previously this has been associated with UTI. Patient's speech is slightly improved from earlier but not at baseline. Some
slight cough that has had 2 to 3 days.
Past History
Past History
ED Past Medical History: HTN and Other (Gout. Pontine bleed. DVT.)
ED Past Surgical History: Orthopedic and Other (Tracheostomy/PEG tube placement)
Social History
Tobacco: Non-smoker
Personal:
Living: assisted living
Employment: Disabled
Family History
Family History: Other (father has RA)
Review of Systems
Review of Systems
All Other Systems: Not applicable
Constitutional: Denies fever
Respiratory: Reports cough
Phy Exam
Physical Exam
Physical Exam:
GENERAL: Alert, but lethargic. Old for stated age. Chronically ill-appearing.
EYE: Mild right conjunctival injection. Vertical nystagmus ongoing
NECK: Supple, no significant adenopathy.
ENT: Pharynx without erythema
CARDIAC: Regular rate and rhythm without any obvious murmurs.
LUNGS: Clear breath sounds,normal
ABDOMEN: Soft, without focal tenderness or distention. PEG tube in place
NEUROLOGICAL: Alert. Moderate slurred speech. Vertical nystagmus. Left facial droop. Diffuse weakness but greatest in left upper and lower extremity and left facial
SKIN: Warm and dry, no rash or lesion, no discoloration, skin intact.
MUSCULOSKELETAL: Contractures
Course
Orders/Labs/Results
Orders:
Orders
04/13/24 19:07
CT Head W/o Iv Contrast Urgent
Comment:
Reason For Exam: Change in mental status. History of pontine bleed
Cardiac Monitoring- Treatment ONCE
IV Insert/Care/Rem.- Treatment PRN
Straight cath- Treatment ONCE
0.9% Sodium Chloride 1000 ml [Nss] 1,000 ml IV BOLUS
Pulse Ox/cont/shift [RESP] Urgent
Quantity: 1
04/13/24 19:08
Electrocardiogram (*1) Urgent
Reason for Study: Other
Other Reason for Exam: sepsis
EKG- Treatment ONCE
CR Chest Portable - 1 View Urgent
Comment:
Reason For Exam: Cough/change in mental status
Reason Study Needs to be Portable: Other
04/13/24 19:46
COVID-19 Antigen Urgent
Source: Nasal Swab
Complete Blood Count/With Diff Urgent
Comprehensive Metabolic Panel Urgent
Influenza A+B Rapid Molecular Urgent
GERARDO Source: Nasal Swab
Specimen Description:
04/13/24 19:47
Urinalysis Reflex To Culture Urgent
Date Specimen was Collected: 04/13/24
Time Specimen was Collected: 19:45
04/13/24 21:52
Albuterol Nebs [Ventolin Nebules] 2.5 mg INH R NOW STA
04/13/24 21:54
Admit/Transfer Patient As Directed
Co-Sign Provider:
Level of Care: Inpatient admission
Assign to:: Telemetry
Physician / Group: Micheleario
Diagnosis: Acute Bronchitis, Speech Abnormality
Reason for Telemetry: Arrhythmia
Date to Stop Telemetry: 04/16/24
Time to Stop Telemetry: 11:00
Reason for Hospitalization: nebs, Brain MRI
Expected length of stay greater than two midnights?: Yes
ELOS- Estimated Length of Stay in days: 3
I certify the patient meets the requirements for IP care: Yes
PRN Pain Medication Management As Directed
May give lesser potent ordered pain med per pt: Yes
preference::
Protocol:: Medication orders for pain may be administered in a
manner that supports deferring to patient preference
when the pt is:
- Requesting an ordered lesser potent pain medication.
Least to most potent pain medications are defined
as: acetaminophen < NSAID < tramadol < opioids
(morphine, oxycodone, hydromorphone).
- Requesting a lesser dose of the same medication IF
ORDERED.
- Requesting a less intrusive route of administration
if both routes are prescribed by the provider (PO <
IV).
04/13/24 21:59
Code Status As Directed
Resuscitation Status: Full Code
04/13/24 22:00
Flush (0.9% Sodium Chloride) [Flush (Nss)] See Dose Instructions IV PER PROTOCOL
04/16/24 11:00
DC Protocol for Telemetry ONCE
Abnormal Lab Results
04/13/24
19:46
RDW 15.3 H %
(11.5-14.5)
Plt Count 108 L 10^3/uL
(130-400)
MPV 10.5 H fL
(7.4-10.4)
BUN 22 H mg/dl
(9-20)
04/13/24 19:46
04/13/24 19:46
Vital Signs
Initial and Last Documented VS:
Initial Vital Signs
Temp Pulse Resp BP Pulse Ox
97.7 F 61 18 122/74 95
04/13/24 18:56 04/13/24 18:56 04/13/24 18:56 04/13/24 18:56 04/13/24 18:56
Last Documented Vital Signs
Temp Pulse Resp BP Pulse Ox
98.6 F 46 0 109/77 95
04/13/24 20:00 04/13/24 21:45 04/13/24 21:45 04/13/24 21:00 04/13/24 21:15
MDM/Problems Addressed
Differential Diagnosis Includes:
Large differential for decreased mental status slurred speech in a patient with a history of pontine bleed. Previously this has been related to UTI. Also has a cough this been ongoing. Possibility of a new stroke although unlikely. Workup in
progress.
*Radiology
Radiology exam reviewed: preliminary read by ED provider (Negative) and radiology read reviewed (Negative for acute changes)
*Pulse Oximetry
Patient hypoxic: no
*Dispute Specialist Interpretation
Rate: bradycardiac
Interpretation: normal
Heart Rate: 56
Rhythm: sinus
*Critical Care Note
Total Time (30-74mins, 75-104mins- exclusive of procedures): Not Applicable
Data Reviewed
Review of Other/Old Records Reveals: Labs, Radiology Studies, Testing and Discharge Summary
Update Note
Update Note:
Head CT without acute changes. Chest x-ray with no acute changes. No obvious explanation for patient's symptoms. Possible primary neurologic issue although relatively unlikely. Warrants admission and further workup
ED Attending Note
-
Portions of this chart may have been created with voice recognition software.� Occasional wrong word or��sound alike� substitutions may have occurred due to the inherent limitations of voice recognition software.
Discharge Plan
Departure
Patient Disposition: Admit
Date of Disposition: 04/13/24
Time of Disposition: 21:23
Presentation/result/management discussed w/ accepting MD/DO: Hospitalist
Discharge Problem:
Aphasia, Change in mental status, History of pontine bleed
Interventions
Interventions:
*Risk Screen - Suicide Last Done: 04/13/24 18:56
*General Assessment Last Done: 04/13/24 18:56
*Neglect/Abuse Screening Last Done: 04/13/24 18:56
*ED COVID-19 Vaccine History Last Done: 04/13/24 18:56
ED- Pulmonary Assessment Last Done: 04/13/24 20:35
ED- Neurological Assessment Last Done: 04/13/24 20:27
ED Swallowing Screen Last Done: 04/13/24 22:30
[2024-04-13 19:56] LABS: Urine Albumin Negative (Neg - Trace); Urine Bilirubin Negative (Negative); Urine Character Clear (Clear); Urine Color Yellow; Urine Glucose Negative (Negative); Urine Ketone Negative (Negative); Urine Leukocyte Negative (Negative); Urine Nitrite Negative (Negative); Urine Occult Blood Negative (Negative); Urine Specific Gravity 1.015 (<1.030); Urine Urobilinogen Negative (Neg - 1+); Urine pH 6.5 (5.0-9.0)
[2024-04-13 20:00] VITALS: BP 104/90
[2024-04-13 20:07] LABS: ALT (SGPT) 22 U/L (0-50); AST (SGOT) 25 U/L (17-59); Albumin 4.5 g/dl (3.5-5.0); Alkaline Phosphatase 116 U/L (38-126); Blood Urea Nitrogen 22 mg/dl (9-20); Calcium 9.6 mg/dl (8.4-10.2); Carbon Dioxide 23 mmol/L (22-30); Chloride 102 mmol/L (98-107); Glucose 96 mg/dl (70-99); Potassium 4.5 mmol/L (3.5-5.1); Sodium 140 mmol/L (135-145); Total Bilirubin 0.6 mg/dl (0.2-1.3); Total Protein 8.1 g/dl (6.3-8.2); eGFR > 60.00
[2024-04-13 20:19] LABS: COVID-19 Antigen Negative (Negative)
[2024-04-13] MEDS: NSS 1000 IV (20:19)
[2024-04-13 20:25] LABS: % Basophils 0.6 % (0-2); % Eosinophils 5.6 % (0-6); % Immature Granulocytes 0.3 % (0-0.5); % Lymphocytes 30.3 % (20.5-51.1); % Monocytes 8.9 % (1.7-9.3); % Neutrophils 54.3 % (42.2-75.2); Absolute Eosinophils 0.4 10^3/uL (0-0.7); Absolute Monocytes 0.6 10^3/uL (0.1-0.6); Absolute Neutrophils 3.5 10^3/uL (1.4-6.5); Hematocrit 42.2 % (39.0-52.0); Hemoglobin 14.4 g/dL (13.0-18.0); Mean Corp Hgb Conc. 34.1 g/dL (33.0-37.0); Mean Corpuscular Hgb 27.9 pg (27.0-31.0); Mean Corpuscular Volume 81.8 fL (80.0-94.0); Mean Platelet Volume 10.5 fL (7.4-10.4); Nucleated Red Blood Cells % 0 % (-); Platelet Count 108 10^3/uL (130-400); Red Blood Cell Count 5.16 10^6/uL (4.70-6.10); Red Cell Dist. Width 15.3 % (11.5-14.5); White Blood Cell Count 6.4 10^3/uL (4.8-10.8)
[2024-04-13 20:26] VITALS: BP 110/83
[2024-04-13 21:00] VITALS: BP 109/77
[2024-04-13 22:00] VITALS: BP 96/83
--- NOTE | 2024-04-13 22:08 | HPS.HSE ---
Family Physician
-
Family Physician: Raymond Eckert
Chief Complaint
-
Speech Abnormality
History of Present Illness
Patient is a 38 y/o male past medical history of pontine intracranial hemorrhage secondary to uncontrolled hypertension who presents with confusion and speech abnormality. Additional history of obtained from patient's family at the bedside. Family
reports patient began complaining of a sore throat a few days ago. Family has also noted increased congestion. Today family was visiting and he slept for about 40 minutes during the visit which is very unusual. Upon awaking his speech was all
garbled, and he was not making sense. Family noted him to be confused. This lasted for about an hour, and family has noticed his speech has improved but not quite back to baseline. Family notes the facility has been trying to wean him off the
tube feeding, and he has been getting all his meds crushed orally. There are no reports of fevers, sweats to chills.
Medical History
Past Medical History
Past Medical History: Reports Other
Additional Past Medical History:
Pontine Intracranial Hemorrhage
Chronic G-Tube Supplement
Chronic Spasticity
Chronic Generalized Neuropathy
Chronic Generalized Hyperhidrosis
Chronic Nystagmus with Impaired Vision / Visual Field Defect
Chronic Neurogenic Bladder
Essential Hypertension
Anxiety/Depression
Bilateral Lower Ext DVTs in May 2023
Gout
Past Surgical History: Reports Other
Additional Past Surgical History:
PEG Tube Placement
Tracheostomy (subsequent closure)
ACL Repair
Social History
Tobacco: Non-smoker
Alcohol: None
Drug: None
Personal:
Living: [facility]
Employment: Disabled
Family History
Family History: Not pertinent
Allergies / Home Medications
Allergies reflects when Allergies were last updated in [email or web address].
Home Medications with original date entered in [email or web address]
Allergy/Medication List:
Allergies
Allergy/AdvReac Type Severity Reaction Status Date / Time
lisinopril Allergy Swelling Verified 04/13/24 18:55
Home Medications
amantadine HCl 50 mg/5 mL oral solution 100 mg PO DAILY Neurological Condition 12/14/23
baclofen 5 mg tablet 5 mg PO TID Muscle Spasms 12/14/23
buspirone 10 mg tablet 10 mg PO TID Depression 12/14/23
diazepam 5 mg tablet (Valium) 2.5 mg PO DAILY Muscle Spasms 12/14/23
diazepam 5 mg tablet (Valium) 5 mg PO BIDPRN PRN spasms 12/14/23
diazepam 5 mg tablet (Valium) 5 mg PO HS Muscle Spasms 12/14/23
fluticasone propionate 50 mcg/actuation nasal spray,suspension 1 spray intranasal BID Congestion 12/14/23
nebivolol 10 mg tablet (Bystolic) 10 mg PO DAILY Blood Pressure 12/14/23
nebivolol 5 mg tablet (Bystolic) 5 mg PO HS Blood Pressure 12/14/23
nystatin 100,000 unit/gram topical powder 1 applic topical BID groin 12/14/23
polyethylene glycol 3350 17 gram oral powder packet (Miralax) 17 g PO DAILY Constipation 12/14/23
sertraline 20 mg/mL oral concentrate 100 mg PO DAILY Depression 12/14/23
therapeutic multivitamin 1 tab PO DAILY Supplement 12/14/23
spironolactone 25 mg tablet 12.5 mg (1/2 x 25 mg) PO DAILY #0 tabs 12/21/23
acetaminophen 325 mg tablet (Tylenol) 650 mg PO Q4HPRN PRN mild pain/temp >100 04/13/24
amlodipine 5 mg tablet 5 mg PO DAILY 04/13/24
bisacodyl 10 mg rectal suppository (Dulcolax (bisacodyl)) 10 mg AK DAILYPRN PRN if mom ineffect aftr 24 hrs 04/13/24
dextran 70-hypromellose (PF) 0.1 %-0.3 % eye drops in a dropperette (Artificial Tears (PF)) 1 drp BOTH EYES QID 04/13/24
loratadine 10 mg tablet (Claritin) 10 mg PO DAILY 04/13/24
magnesium hydroxide 400 mg/5 mL oral suspension (Milk of Magnesia) 30 ml PO [id number] PRN no bm 3 days 04/13/24
melatonin 5 mg tablet 5 mg PO HS 04/13/24
pregabalin 50 mg capsule (Lyrica) 50 mg PO BID 04/13/24
quetiapine 25 mg tablet 25 mg PO BID 04/13/24
sodium phosphates 19 gram-7 gram/118 mL enema (Fleet Enema) 118 ml AK DAILYPRN PRN if dulcolax ineffect aftr 24 hrs 04/13/24
white petrolatum-mineral oil 83 %-15 % eye ointment 1 applic BOTH EYES HS 04/13/24
zinc oxide 1 ea topical DAILY sacrum 04/13/24
Review of Systems
-
A 12 point ROS was completed and negative except as noted: Yes
Constitutional: Denies Fever or Chills
Respiratory: Denies Cough or Trouble Breathing
Cardiac: Denies Chest Pain or Palpitations
Abdomen/GI: Denies Abdominal Pain, Nausea or Vomiting
Neurological: Reports See HPI
Physical Exam
Vital Signs
Vital Signs
Temp Pulse Resp BP Pulse Ox
98.6 F 46 0 109/77 95
04/13/24 20:00 04/13/24 21:45 04/13/24 21:45 04/13/24 21:00 04/13/24 21:15
Physical Exam
General: Comfortable and Conversant
HEENT: Anicteric, Moist mucous membranes and Other
Respiratory: Rhonchi (Diffuse) and Non Labored Respirations
Cardiac: S1/S2, Regular Rhythm and Bradycardia (Slightly)
GI: Soft, Non Tender and Peg Tube
Rectal: Deferred by Provider
Genito-urinary: Clear Urine
Musculoskeletal: No Clubbing and No Cyanosis
Skin: Warm and Dry
Neuro: Awake, Alert, Oriented and Other (Speech is slow and sometimes difficult to understand)
Psych: Calm
Laboratory Results
-
04/13/24 19:46
04/13/24 19:46
Laboratory Results
Total Bilirubin 0.6 mg/dl (0.2-1.3) 04/13/24 19:46
AST 25 U/L (17-59) 04/13/24 19:46
ALT 22 U/L (0-50) 04/13/24 19:46
Alkaline Phosphatase 116 U/L (38-126) 04/13/24 19:46
Data Reviewed
-
Diagnostic Radiology: Report Reviewed by me
CT Scan: Report Reviewed by me
Lab Data: Labs Reviewed by me
Impression/Plan
-
Acute Bronchitis vs Aspiration Pneumonitis
-Consult Speech Therapy
-Continue Moist/Minced solids with mildly thickened liquids
-Continue nebulizer QID and PRN
-Add Robitussin QID
-Add Chest Vest therapy
Transient Confusion/Speech Abnormality, unclear etiology possibly TME in setting of bronchitis vs Seizure vs TIA
-Consult Neurology
-Consider Brain MRI +/- EEG
HX Pontine Intracranial Hemorrhage with Chronic Spasticity / Chronic Generalized Neuropathy / Chronic Nystagmus with Impaired Vision and Visal Field Defect
-Continue Valium as prior to admission
-Continue Amantadine and Baclofen
Essential Hypertension
-Discontinue evening Bystolic dose due to mild bradycardia
-Continue Bystolic 10mg Daily
-Continue amlodipine and Spironolactone
Anxiety/Depression
-Continue BuSpar, Zoloft and Seroquel
Chronic G-Tube Supplement
-Consult dietary
Hx Bilateral Lower Ext DVTs in May 2023
-No longer on anticoagulation
Code Status: Full Code
[2024-04-13] MEDS: VENTOLIN NEBULES 2.5 MG INH (22:21)
--- NOTE | 2024-04-13 23:11 | PTCARENOTE ---
Pt admitted to room 2130 from ED, aaox3, slurred slow speech, able to make needs known. Pt oriented to room and call light. plan of care ongoing.
[2024-04-13 23:25] VITALS: BP 135/79
[2024-04-13 23:26] VITALS: BMI 33.1
[2024-04-14] MEDS: MELATONIN 5 MG PO ×2 (00:01→21:24)
[2024-04-14] MEDS: REFRESH EYE DROPS (PF) 1 DROPS BOTH EYES ×5 (00:01→21:11)
[2024-04-14] MEDS: BUSPAR 10 MG PO ×4 (00:02→21:11)
[2024-04-14] MEDS: TYLENOL 650 MG PO (00:02)
[2024-04-14] MEDS: ROBITUSSIN 200 MG TUBE ×5 (00:03→21:10)
[2024-04-14] MEDS: LIORESAL 5 MG PO ×4 (00:03→21:16)
[2024-04-14] MEDS: VALIUM 5 MG PO ×2 (00:03→21:25)
[2024-04-14 03:21] VITALS: BP 114/70
--- NOTE | 2024-04-14 07:07 | W.PN.UPDATE ---
Update Note
Progress Note Update
Patient seen in conjunction with CARTER. I agree with the findings on history and physical as well as the assessment and plan.
This is a 38-year-old male with history of a recent pontine hemorrhage secondary to severe uncontrolled hypertension with residual TBI and neurological deficits including constant nystagmus, ataxia, neurogenic bladder and dysphagia who currently
resides more recently at the long-term and was brought to the emergency department as family reported changes in his mental status. Family saw patient a few days ago and noticed that he sounded more congested than usual. He has a weak cough
response and is unable to bring up any sputum. Patient has not had any fevers or chills. When family saw patient on day of admission they noted that he was very somnolent for them for 4 hours while they were there with him. Upon arousal he was
more confused than usual and specifically had more word finding difficulty compared to baseline. He remains with somewhat fine difficulties upon arrival in the ED. Family reports that he often gets changes in his neurological status in the setting
of a urinary tract infection. He employs a external urinary catheter. No medication changes.
In the ED he was afebrile hemodynamically stable and in no acute distress. Workup was essentially negative with no acute changes on the CT of the head. Chest x-ray negative for pneumonia. UA was unremarkable. COVID and flu test are negative.
Labs with essentially normal chemistries and CBC except for thrombocytopenia with a platelet of 104.
AMS
Presentation c/w toxic metabolic vs post-ictal state and less likely TIA.
- admit to telemetry
- neurology consult with possible MRI and EEG in AM
Bronchitis - recently challenged with increased oral intake on a thickened liquid diet. Possible aspiration vs acute bronchitis. No pna on xray
- monitor for fever/hypoxia
- supportive care for bronchitis for now
- dysphagia diet and speech/swallow evaluation
- G tube for meds at this time
Thrombocytopenia - Isolated thrombocytopenia prior to getting any heparin. h/o prior DVT now off AC. No bleeding. No medication changes as above. ?viral
- repeat labs in am before additional w/u
DVT PPX - lovenox
Code status - full code
[2024-04-14 07:17] LABS: Hematocrit 39.4 % (39.0-52.0); Mean Corpuscular Hgb 27.7 pg (27.0-31.0); Mean Corpuscular Volume 83.8 fL (80.0-94.0); Mean Platelet Volume 10.5 fL (7.4-10.4); Platelet Count 228 10^3/uL (130-400); Red Cell Dist. Width 15.2 % (11.5-14.5); White Blood Cell Count 7.2 10^3/uL (4.8-10.8)
[2024-04-14 07:20] VITALS: BP 99/67
[2024-04-14 07:31] LABS: Blood Urea Nitrogen 21 mg/dl (9-20); Calcium 9.2 mg/dl (8.4-10.2); Carbon Dioxide 22 mmol/L (22-30); Chloride 103 mmol/L (98-107); Estimated Creatinine Clearance > 125 ml/min; Glucose 94 mg/dl (70-99); Potassium 4.6 mmol/L (3.5-5.1); Sodium 142 mmol/L (135-145); eGFR > 60.00
--- NOTE | 2024-04-14 07:54 | CON.NEURO ---
Consultation
Order
Date of Consultation: 04/14/24
Requesting Provider: Gaby Rodriguez PA-C
Reason for Consult: dysarthria
CC: none
HPI: This is a 38-year-old man who presented to [facility] on April 13, 2022 for with dysarthria. According to patient's mother Joselo was noted to be congested as well as lethargic and have difficulties expressing his thoughts
the day of the admission. No reports of abnormal movements. The patient is unable to provide a history.
ER VS: 122/74-96/83, HR 49-61; afebrile, 95% on RA
EKG: sinus bradycardia, QTc Int : 449 ms
PDMP:Pregabalin 50 Mg 60 capsules filled in on 04/05/2024, Diazepam 5 mg 30 tabs filled in 04/05/2024
Labs:normal WBC, Na, Cr, glucose, normal ua, neg SARS-COv-2.
CT head-moderate encephalomalacia in the central posterior brenda and midbrain, mild cerebellar volume loss.
PMH:pontine ICH with MERRILL(04/2023), HTN, gout, h/o DVT, LIBIA, MDD
PSH: PEG
SH:[place] resident; has 2 children, used to work at [employer]. Non-smoker.
FH:father-RA
All:ACEIs
ROS: limited due to dysarthria
General: In no acute distress.
Cardio: Regular rate and rhythm without murmur. Extremities are without cyanosis or edema.
Neuro:
Mental Status: Alert, oriented to name, age.Poor attention. Perseverates. Nonfluent
Cranial Nerves: Pupils are equally round and reactive to light. BL CARLOS. Visual wahl full to confrontation. No ptosis. Face symmetric. Normal hearing AU. The palate elevated well. SCMs and traps 5/5. Tongue midline. Spastic dysphonia and
dysarthria dysarthria.
Motor: Increased motor tone right greater than left. Spastic quadraparesis.
Reflexes: 3+ throughout
Sensory: Limited exam due to poor attention
Coordination: No tremors, clonic movements
Gait: Nonambulatory.
Assessment and Plan:
I. Encephalopathy
II. 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
III. Cerebellar atrophy
-Please check CK, TFTs, ammonia, ua tox
-Will clarify indications for Amantadine
-Brain MRi wo libia
I personally reviewed all radiology and labs along with past medical records pertinent to current medical problems. Total time spent in patient care is 60 minutes.
Thank you for allowing us to participate in the care of this patient. We will continue to follow. Please do not hesitate to contact us with any questions or concerns.
Subjective/Objective
Subjective Data
Date of Service: April 14, 2024
Objective Data
Vital Signs
Temp Pulse Resp BP Pulse Ox
36.3 C 58 17 114/70 96
04/14/24 03:21 04/14/24 03:21 04/14/24 03:21 04/14/24 03:21 04/14/24 03:21
Lab Results
04/14/24 06:17
04/14/24 06:17
Sodium 142 mmol/L (135-145) 04/14/24 06:17
Potassium 4.6 mmol/L (3.5-5.1) 04/14/24 06:17
BUN 21 mg/dl (9-20) H 04/14/24 06:17
Glucose 94 mg/dl (70-99) 04/14/24 06:17
Calcium 9.2 mg/dl (8.4-10.2) 04/14/24 06:17
Patient Allergies
lisinopril Allergy (Verified 04/13/24 23:11)
Swelling/ANGIOEDEMA
Medications
-
Active Medications
Generic Name Dose Route Start Last Admin
Trade Name Freq PRN Reason Stop Dose Admin
Acetaminophen 650 mg 04/13/24 23:09 04/14/24 00:02
Acetaminophen 325 Mg Tablet PO 05/11/24 23:08 650 mg
Q4HPRN PRN Administration
mild pain/temp >100
Albuterol/Ipratropium 3 ml 04/13/24 23:09
Ipratropium 0.5/Albuterol 3 Mg (3 Ml Ampul) INH
R Q4HPRN PRN
shortness of breath/wheeze
Protocol
Albuterol/Ipratropium 3 ml 04/14/24 08:00
Ipratropium 0.5/Albuterol 3 Mg (3 Ml Ampul) INH
R QID BRANDYN
Protocol
Amantadine HCl 100 mg 04/14/24 08:00
Amantadine Syrup (100 Mg/10 Ml) Cup PO 05/12/24 07:59
DAILY BRANDYN
Amlodipine Besylate 5 mg 04/14/24 08:00
Amlodipine 5 Mg Tablet PO 05/12/24 07:59
DAILY BRANDYN
Artificial Tears 1 drops 04/13/24 23:00 04/14/24 00:01
Artificial Tears Pf (Refresh) 10 Drop Droperette BOTH EYES 05/11/24 22:59 1 drops
QID BRANDYN Administration
Baclofen 5 mg 04/13/24 23:09 04/14/24 00:03
Baclofen 5 Mg Tablet PO 05/11/24 23:08 5 mg
TID BRANDYN Administration
Buspirone HCl 10 mg 04/13/24 23:09 04/14/24 00:02
Buspirone 10 Mg Tablet PO 05/11/24 23:08 10 mg
TID BRANDYN Administration
Diazepam 5 mg 04/13/24 23:09 04/14/24 00:03
Diazepam 5 Mg Tablet PO 05/11/24 23:08 5 mg
HS BRANDYN Administration
Diazepam 5 mg 04/13/24 23:09
Diazepam 5 Mg Tablet PO 05/11/24 23:08
BIDPRN PRN
spasms
Diazepam 2.5 mg 04/14/24 08:00
Diazepam 5 Mg Tablet PO 05/12/24 07:59
DAILY BRANDYN
Guaifenesin 200 mg 04/13/24 23:09 04/14/24 00:03
Guaifenesin Oral Solution (200 Mg/10 Ml) Cup TUBE 05/11/24 23:08 200 mg
QID BRANDYN Administration
Melatonin 5 mg 04/13/24 23:09 04/14/24 00:01
Melatonin 5 Mg Tablet PO 05/11/24 23:08 5 mg
HS BRANDYN Administration
Nebivolol 10 mg 04/14/24 08:00
Nebivolol Hcl 10 Mg Tablet PO 05/12/24 07:59
DAILY BRANDYN
Polyethylene Glycol 17 grams 04/14/24 08:00
Polyethylene Glycol Powder 17 Grams Packet TUBE 05/12/24 07:59
DAILY BRANDYN
Pregabalin 50 mg 04/14/24 08:00
Pregabalin 50 Mg Capsule PO 05/12/24 07:59
BID BRANDYN
Quetiapine Fumarate 25 mg 04/14/24 08:00
Quetiapine 25 Mg Tablet PO 05/12/24 07:59
BID BRANDYN
Sertraline HCl 100 mg 04/14/24 08:00
Sertraline 20 Mg/Ml In Oral Syringe PO 05/12/24 07:59
DAILY BRANDYN
Sodium Chloride 0 flush 04/13/24 22:00
Sodium Chloride 0.9% (Flush) Syringe IV 05/11/24 21:59
PER PROTOCOL BRANDYN
Spironolactone 12.5 mg 04/14/24 08:00
Spironolactone 12.5 Mg Dose (1/2 Of 25 Mg Tablet) PO 05/12/24 07:59
DAILY BRANDYN
Home Medications
�Medication �Instructions �Recorded
amantadine HCl 50 mg/5 mL oral 100 mg PO DAILY Neurological 12/14/23
solution Condition
baclofen 5 mg tablet 5 mg PO TID Muscle Spasms 12/14/23
buspirone 10 mg tablet 10 mg PO TID Depression 12/14/23
diazepam 5 mg tablet (Valium) 2.5 mg PO DAILY Muscle Spasms 12/14/23
diazepam 5 mg tablet (Valium) 5 mg PO BIDPRN PRN spasms 12/14/23
diazepam 5 mg tablet (Valium) 5 mg PO HS Muscle Spasms 12/14/23
fluticasone propionate 50 1 spray intranasal BID Congestion 12/14/23
mcg/actuation nasal
spray,suspension
nebivolol 10 mg tablet (Bystolic) 10 mg PO DAILY Blood Pressure 12/14/23
nebivolol 5 mg tablet (Bystolic) 5 mg PO HS Blood Pressure 12/14/23
nystatin 100,000 unit/gram topical 1 applic topical BID groin 12/14/23
powder
polyethylene glycol 3350 17 gram 17 g PO DAILY Constipation 12/14/23
oral powder packet (Miralax)
sertraline 20 mg/mL oral 100 mg PO DAILY Depression 12/14/23
concentrate
therapeutic multivitamin 1 tab PO DAILY Supplement 12/14/23
spironolactone 25 mg tablet 12.5 mg (1/2 x 25 mg) PO DAILY #0 12/21/23
tabs
acetaminophen 325 mg tablet 650 mg PO Q4HPRN PRN mild 04/13/24
(Tylenol) pain/temp >100
amlodipine 5 mg tablet 5 mg PO DAILY Blood Pressure 04/13/24
bisacodyl 10 mg rectal suppository 10 mg ME DAILYPRN PRN if mom 04/13/24
(Dulcolax (bisacodyl)) ineffect aftr 24 hrs
dextran 70-hypromellose (PF) 0.1 1 drp BOTH EYES QID Eye Condition 04/13/24
%-0.3 % eye drops in a dropperette
(Artificial Tears (PF))
loratadine 10 mg tablet (Claritin) 10 mg PO DAILY Allergies 04/13/24
magnesium hydroxide 400 mg/5 mL 30 ml PO [id number] PRN no bm 3 days 04/13/24
oral suspension (Milk of Magnesia)
melatonin 5 mg tablet 5 mg PO HS Sleep 04/13/24
pregabalin 50 mg capsule (Lyrica) 50 mg PO BID Neurological Condition 04/13/24
quetiapine 25 mg tablet 25 mg PO BID 04/13/24
sodium phosphates 19 gram-7 118 ml ME DAILYPRN PRN if dulcolax 04/13/24
gram/118 mL enema (Fleet Enema) ineffect aftr 24 hrs
white petrolatum-mineral oil 83 1 applic BOTH EYES HS Eye Condition 04/13/24
%-15 % eye ointment
zinc oxide 1 ea topical DAILY sacrum 04/13/24
Vital Signs and Labs
-
Vital Signs and Labs:
Vital Signs
Temp Pulse Resp BP Pulse Ox
36.7 C 60 18 99/67 97
04/14/24 07:20 04/14/24 08:27 04/14/24 08:27 04/14/24 07:20 04/14/24 07:20
Lab Results
04/14/24 06:17
04/14/24 06:17
Sodium 142 mmol/L (135-145) 04/14/24 06:17
Potassium 4.6 mmol/L (3.5-5.1) 04/14/24 06:17
BUN 21 mg/dl (9-20) H 04/14/24 06:17
Glucose 94 mg/dl (70-99) 04/14/24 06:17
Calcium 9.2 mg/dl (8.4-10.2) 04/14/24 06:17
Medications
-
Medications:
Generic Name Dose Route Start Last Admin
Trade Name Freq PRN Reason Stop Dose Admin
Acetaminophen 650 mg 04/13/24 23:09 04/14/24 00:02
Acetaminophen 325 Mg Tablet PO 05/11/24 23:08 650 mg
Q4HPRN PRN Administration
mild pain/temp >100
Albuterol/Ipratropium 3 ml 04/13/24 23:09
Ipratropium 0.5/Albuterol 3 Mg (3 Ml Ampul) INH
R Q4HPRN PRN
shortness of breath/wheeze
Protocol
Albuterol/Ipratropium 3 ml 04/14/24 08:00 04/14/24 08:15
Ipratropium 0.5/Albuterol 3 Mg (3 Ml Ampul) INH 3 ml
R QID BRANDYN Administration
Protocol
Amantadine HCl 100 mg 04/14/24 08:00
Amantadine Syrup (100 Mg/10 Ml) Cup PO 05/12/24 07:59
DAILY BRANDYN
Amlodipine Besylate 5 mg 04/14/24 08:00
Amlodipine 5 Mg Tablet PO 05/12/24 07:59
DAILY BRANDYN
Artificial Tears 1 drops 04/13/24 23:00 04/14/24 00:01
Artificial Tears Pf (Refresh) 10 Drop Droperette BOTH EYES 05/11/24 22:59 1 drops
QID BRADNYN Administration
Baclofen 5 mg 04/13/24 23:09 04/14/24 00:03
Baclofen 5 Mg Tablet PO 05/11/24 23:08 5 mg
TID BRANDYN Administration
Buspirone HCl 10 mg 04/13/24 23:09 04/14/24 00:02
Buspirone 10 Mg Tablet PO 05/11/24 23:08 10 mg
TID BRANDYN Administration
Diazepam 5 mg 04/13/24 23:09 04/14/24 00:03
Diazepam 5 Mg Tablet PO 05/11/24 23:08 5 mg
HS BRANDYN Administration
Diazepam 5 mg 04/13/24 23:09
Diazepam 5 Mg Tablet PO 05/11/24 23:08
BIDPRN PRN
spasms
Diazepam 2.5 mg 04/14/24 08:00
Diazepam 5 Mg Tablet PO 05/12/24 07:59
DAILY BRANDYN
Guaifenesin 200 mg 04/13/24 23:09 04/14/24 00:03
Guaifenesin Oral Solution (200 Mg/10 Ml) Cup TUBE 05/11/24 23:08 200 mg
QID BRANDYN Administration
Melatonin 5 mg 04/13/24 23:09 04/14/24 00:01
Melatonin 5 Mg Tablet PO 05/11/24 23:08 5 mg
HS BRANDYN Administration
Nebivolol 10 mg 04/14/24 08:00
Nebivolol Hcl 10 Mg Tablet PO 05/12/24 07:59
DAILY BRANDYN
Polyethylene Glycol 17 grams 04/14/24 08:00
Polyethylene Glycol Powder 17 Grams Packet TUBE 05/12/24 07:59
DAILY BRANDYN
Pregabalin 50 mg 04/14/24 08:00
Pregabalin 50 Mg Capsule PO 05/12/24 07:59
BID BRANDYN
Quetiapine Fumarate 25 mg 04/14/24 08:00
Quetiapine 25 Mg Tablet PO 05/12/24 07:59
BID BRANDYN
Sertraline HCl 100 mg 04/14/24 08:00
Sertraline 20 Mg/Ml In Oral Syringe PO 05/12/24 07:59
DAILY BRANDYN
Sodium Chloride 0 flush 04/13/24 22:00
Sodium Chloride 0.9% (Flush) Syringe IV 05/11/24 21:59
PER PROTOCOL BRANDYN
Spironolactone 12.5 mg 04/14/24 08:00
Spironolactone 12.5 Mg Dose (1/2 Of 25 Mg Tablet) PO 05/12/24 07:59
DAILY BRANDYN
Home Medications
-
Home Medications
amantadine HCl 50 mg/5 mL oral solution 100 mg PO DAILY Neurological Condition 12/14/23
baclofen 5 mg tablet 5 mg PO TID Muscle Spasms 12/14/23
buspirone 10 mg tablet 10 mg PO TID Depression 12/14/23
diazepam 5 mg tablet (Valium) 2.5 mg PO DAILY Muscle Spasms 12/14/23
diazepam 5 mg tablet (Valium) 5 mg PO BIDPRN PRN spasms 12/14/23
diazepam 5 mg tablet (Valium) 5 mg PO HS Muscle Spasms 12/14/23
fluticasone propionate 50 mcg/actuation nasal spray,suspension 1 spray intranasal BID Congestion 12/14/23
nebivolol 10 mg tablet (Bystolic) 10 mg PO DAILY Blood Pressure 12/14/23
nebivolol 5 mg tablet (Bystolic) 5 mg PO HS Blood Pressure 12/14/23
nystatin 100,000 unit/gram topical powder 1 applic topical BID groin 12/14/23
polyethylene glycol 3350 17 gram oral powder packet (Miralax) 17 g PO DAILY Constipation 12/14/23
sertraline 20 mg/mL oral concentrate 100 mg PO DAILY Depression 12/14/23
therapeutic multivitamin 1 tab PO DAILY Supplement 12/14/23
spironolactone 25 mg tablet 12.5 mg (1/2 x 25 mg) PO DAILY #0 tabs 12/21/23
acetaminophen 325 mg tablet (Tylenol) 650 mg PO Q4HPRN PRN mild pain/temp >100 04/13/24
amlodipine 5 mg tablet 5 mg PO DAILY Blood Pressure 04/13/24
bisacodyl 10 mg rectal suppository (Dulcolax (bisacodyl)) 10 mg ME DAILYPRN PRN if mom ineffect aftr 24 hrs 04/13/24
dextran 70-hypromellose (PF) 0.1 %-0.3 % eye drops in a dropperette (Artificial Tears (PF)) 1 drp BOTH EYES QID Eye Condition 04/13/24
loratadine 10 mg tablet (Claritin) 10 mg PO DAILY Allergies 04/13/24
magnesium hydroxide 400 mg/5 mL oral suspension (Milk of Magnesia) 30 ml PO [id number] PRN no bm 3 days 04/13/24
melatonin 5 mg tablet 5 mg PO HS Sleep 04/13/24
pregabalin 50 mg capsule (Lyrica) 50 mg PO BID Neurological Condition 04/13/24
quetiapine 25 mg tablet 25 mg PO BID 04/13/24
sodium phosphates 19 gram-7 gram/118 mL enema (Fleet Enema) 118 ml ME DAILYPRN PRN if dulcolax ineffect aftr 24 hrs 04/13/24
white petrolatum-mineral oil 83 %-15 % eye ointment 1 applic BOTH EYES HS Eye Condition 04/13/24
zinc oxide 1 ea topical DAILY sacrum 04/13/24
[2024-04-14] MEDS: DUONEB 3 ML INH ×3 (08:15→14:42)
--- NOTE | 2024-04-14 08:17 | W.PN.HOSP.TC ---
Addendum entered and electronically signed by Kip Jamil MD 04/14/24 16:21:
no symtpoms at the time of my eval
mri pending
neuro to see
Original Note:
Today's Communication/Plan
-
Awaiting MRI results. EEG scheduled for the morning by neurology. Continue current medications.
Assessment / Plan
Assessment / Plan
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 History
was obtained from patient's family at the bedside in the emergency department. Patient lives in a group home. His family reported that the patient began complaining of a sore throat a couple days ago. They also noted the patient was suffering
from increased congestion. When they came to visit him in the group home they noted that he was very somnolent for them for about 4 hours while they were with him. Upon waking up from his sleep his speech was all garbled and he was not making
any sense. The family noted that he was confused at that time. The state of confusion lasted for about an hour and his family noticed that his speech improved but was not back at his baseline. His family reports that he often gets changes in his
neurological status in the setting of urinary tract infections. He uses an external urinary catheter. He was brought to [facility] emergency department. In the emergency department he was afebrile hemodynamically stable and was not in acute
distress. CT of the head conducted in the emergency department showed no acute changes. X-ray was negative for pneumonia and his COVID and flu tests were negative. Urinalysis was unremarkable. Patient was admitted for altered mental status
secondary to possible TIA.
Impression/Plan:
Altered mental status secondary to possible TIA, toxic metabolic, or postictal state: Monitoring
Prior to presentation to the emergency department the patient was in acute state of confusion with difficulty finding words
CT of the head conducted in the emergency department showed no acute changes
MRI ordered for further evaluation
EEG in the morning
Neurology consulted
Admitted to telemetry
Acute bronchitis versus aspiration pneumonitis:
Chest x-ray was negative for pneumonia
Screening for MRSA
Speech therapy consulted
Give moist/minced solids with mildly thickened liquid
Guaifenesin 200 mg given
-Essential hypertension:
Continue nebivolol 10 mg
Will continue amlodipine and spironolactone Home medications
-Thrombocytopenia: Resolved
Patient had isolated thrombocytopenia prior to getting any heparin. On 04/13/2024
Current platelet count is 228 which is back within normal limits.
-HX Pontine Intracranial Hemorrhage with Chronic Spasticity / Chronic Generalized Neuropathy / Chronic Nystagmus with Impaired Vision and Visual Field Defect:
Continue home medication Valium
Continue his amantadine and baclofen
-Anxiety/depression:
Continue BuSpar, Zoloft and Seroquel home medication
-G-tube status
Dietary consulted
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
-DVT prophylaxis: Lovenox
-FULL CODE STATUS
Anticipated Discharge: Within 24 hours
Subjective/Interval History
-
Date of Service: April 14, 2024
Met with patient at the bedside. He is calm and cooperative in discussion and is worried about the state of his brain. He thinks that his 'brain is all messed up.' Spoke to patient about his CT scan showing no acute intracranial hemorrhage.
Reassurance given.
Objective Data
-
Labs:
Laboratory Results
04/13/24 04/14/24
19:46 06:17
WBC 6.4 7.2
Hgb 14.4 13.0
Hct 42.2 39.4
Plt Count 108 L 228 D
Sodium 142
Potassium 4.6
Chloride 103
Carbon Dioxide 22
BUN 21 H
Creatinine 0.7
Glucose 94
Calcium 9.2
Vital Signs:
Vital Signs
Temp Pulse Resp BP Pulse Ox
97.4 F 58 17 114/70 96
04/14/24 03:21 04/14/24 03:21 04/14/24 03:21 04/14/24 03:21 04/14/24 03:21
I&O
04/13/24 04/14/24 04/15/24
06:59 06:59 06:59
Output Total 200 / 200
Balance -200 / -200
Review of Systems
-
History Source: Patient
Respiratory: Reports Cough
Abdomen/GI: Reports No Symptoms
Genitourinary: Reports No Symptoms
Skin: Reports No Symptoms
Psych: Reports Anxious
Physical Exam
-
General: Well Developed and Well Nourished
HEENT: Normocephalic and Ears Appear Normal
Respiratory: Clear to Auscultation
Cardiac: Regular Rhythm and S1/S2
GI: Soft, Nontender, Nondistended and Normal Bowel Sounds
Musculoskeletal: No Clubbing, No Cyanosis and No Edema
Skin: Warm and Dry
Neuro: Awake, Alert, Oriented and AO x 3
Psych: Anxious
[2024-04-14] MEDS: NORVASC PO (08:37)
[2024-04-14] MEDS: LYRICA 50 MG PO ×2 (08:37→21:21)
[2024-04-14] MEDS: MIRALAX 17 GRAMS TUBE (08:37)
[2024-04-14] MEDS: ALDACTONE PO (08:38)
[2024-04-14] MEDS: BYSTOLIC PO (08:39)
[2024-04-14] MEDS: ZOLOFT ORAL CONCENTRATE 100 MG PO (08:49)
[2024-04-14] MEDS: VALIUM 2.5 MG PO (08:49)
[2024-04-14] MEDS: SYMMETREL SYRUP 100 MG PO (08:50)
[2024-04-14] MEDS: SEROQUEL 25 MG PO ×2 (08:50→21:11)
[2024-04-14 09:16] LABS: Creatine Phosphokinase 38 U/L (55-170)
[2024-04-14 09:20] LABS: Ammonia 18 umol/L (9-30)
--- NOTE | 2024-04-14 09:32 | PTOTSP ---
SPEECH THERAPY SWALLOW EVALUATION:
Patient exhibits clinical signs of oropharyngeal dysphagia, likely chronic related to history of pontine CVA. Patient currently with bronchitis vs. possible aspiration; WBC WNL; CXR negative for pneumonia. Breathing comfortably on room air. Patient
reported he has been consuming both thin and mildly-thick liquids at nursing facility; Unclear on details of when/who advanced liquids since prior VSE at in November 2023 which had recommended IDDSI Level 5 Minced and Moist diet, Mildly-thick liquids.
Patient appears to be at baseline level of swallow function at this time. Recommend continue baseline diet of IDDSI Level 5 Minced and Moist, Mildly-thick liquids. Medications crushed in puree. Aspiration precautions: 1:1 assistance; Upright
positioning; Ensure oral cavity clear post p.o. intake; Oral care 3x/day; Check for pocketing; Alternate textures; Small sips/bites; Slow rate of intake; Monitor CXR and labs/temp; D/c oral diet if any decline in mental or respiratory status.
Consider outpatient VSE to determine liquid upgrade to thin liquids. ST to follow closely, assess diet tolerance and modify as appropriate, monitor CXR, temperature, and labs, determine indication for inpatient VSE as appropriate.
RECOMMEND:
1) IDDSI Level 5 Minced and Moist, Mildly-thick liquids
2) Medications crushed in puree
3) Aspiration precautions: 1:1 assistance; Upright positioning; Ensure oral cavity clear post p.o. intake; Check for pocketing; Alternate textures; Small sips/bites; Slow rate of intake; Monitor CXR and labs/temp; D/c oral diet if any decline in
mental or respiratory status
4) Oral care 3x/day
5) ST to follow and determine indication for VSE as appropriate
[2024-04-14 10:14] LABS: Amphetamines Negative (Negative); Barbiturates Negative (Negative); Benzodiazepines Positive (Negative); Buprenorphine Negative (Negative); Cocaine Negative (Negative); Marijuana Negative (Negative); Methadone Negative (Negative); Methamphetamines Negative (Negative); Opiates Negative (Negative); Phencyclidine Negative (Negative); Tricyclic Antidepressants Positive (Negative)
[2024-04-14 10:29] LABS: Fentanyl, Urine Negative (Negative)
[2024-04-14 11:10] VITALS: BP 117/68
[2024-04-14 11:33] LABS: TSH Reflex To Free T4 1.16 uIU/ml (0.47-4.68)
[2024-04-14 15:15] VITALS: BP 127/82
[2024-04-14 15:41] VITALS: BMI 33.1
[2024-04-14 19:36] VITALS: BP 132/83
[2024-04-14] MEDS: DUONEB INH (19:57)
[2024-04-14 23:21] VITALS: BP 126/82
[2024-04-15 03:30] VITALS: BP 124/86
[2024-04-15 07:25] VITALS: BP 141/78
[2024-04-15] MEDS: DUONEB 3 ML INH ×4 (07:37→19:57)
--- NOTE | 2024-04-15 08:27 | W.PN.HOSP.TC ---
Addendum entered and electronically signed by Kip Jamil MD 04/15/24 12:40:
seen and examined, states that he is feeling better. no numbness, tingling, loss of sensations.
NAD, resting comfortably in bed
Scleral anicteric
Moist mucous membranes
No JVD
CTA bilateral
Normal S1-S2 no murmurs
Soft nontender nondistended bowel sounds active
No peripheral pitting edema
Moves extremities spontaneously
AAO
Encephalopathy which was acute now resolved. Likely toxic versus vascular.
MRI without evidence of acute changes.
Neuro following. No further recs provided. Begin DC planning.
Original Note:
Today's Communication/Plan
-
Patient's most recent head CT showed no evidence of acute intracranial hemorrhage or trans cortical infarct. Subsequent follow-up MRI showed no acute intracranial abnormalities. The patient appears to be at his baseline and medically stable at the
present time. We will move forward with discharge planning and seeking authorization for SNF placement. PT OT eval and treat ordered.
Assessment / Plan
Assessment / Plan
HPI: Patient is a 38-year-old male with a past medical history of pontine intracranial hemorrhage secondary to uncontrolled hypertension who presented to the emergency department at [facility] with confusion and speech abnormality. History
was obtained from patient's family at the bedside in the emergency department. Patient lives in a shelter. His family reported that the patient began complaining of a sore throat a couple days ago. They also noted the patient was suffering
from increased congestion. When they came to visit him in the shelter they noted that he was very somnolent for them for about 4 hours while they were with him. Upon waking up from his sleep his speech was all garbled and he was not making
any sense. The family noted that he was confused at that time. The state of confusion lasted for about an hour and his family noticed that his speech improved but was not back at his baseline. His family reports that he often gets changes in his
neurological status in the setting of urinary tract infections. He uses an external urinary catheter. He was brought to [facility] emergency department. In the emergency department he was afebrile hemodynamically stable and was not in acute
distress. CT of the head conducted in the emergency department showed no acute changes. X-ray was negative for pneumonia and his COVID and flu tests were negative. Urinalysis was unremarkable. Patient was admitted for altered mental status
secondary to possible TIA.
Impression/Plan:
Altered mental status secondary to possible TIA, toxic metabolic, or postictal state: Monitoring
Prior to presentation to the emergency department the patient was in acute state of confusion with difficulty finding words
CT of the head conducted in the emergency department showed no acute changes
MRI ordered for further evaluation -there were no acute intracranial abnormalities found.
EEG in the morning
Appreciate neurology consult. -They recommend close observation, aspiration precautions, MG panel, avoid cerebral hypoperfusion, and recommend a outpatient neurology follow-up within 2 to 4 weeks postdischarge.
Admitted to telemetry
Patient appears to be at his baseline.
Acute bronchitis versus aspiration pneumonitis:
Chest x-ray was negative for pneumonia
Screening for MRSA
Speech therapy consulted
Give moist/minced solids with mildly thickened liquid
Guaifenesin 200 mg given
-Essential hypertension:
Continue nebivolol 10 mg
Will continue amlodipine and spironolactone Home medications
-Thrombocytopenia: Resolved
Patient had isolated thrombocytopenia prior to getting any heparin. On 04/13/2024
Current platelet count is 228 which is back within normal limits.
-HX Pontine Intracranial Hemorrhage with Chronic Spasticity / Chronic Generalized Neuropathy / Chronic Nystagmus with Impaired Vision and Visual Field Defect:
Continue home medication Valium
Continue his amantadine and baclofen
-Anxiety/depression:
Continue BuSpar, Zoloft and Seroquel home medication
-G-tube status
Dietary consulted
Speech and swallow eval suggested thickened fluids. Patient and family contacted me later on in the day hoping to get a thicker food ordered. Food upgraded to honey level of thickness.
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
-DVT prophylaxis: Lovenox
-FULL CODE STATUS
Anticipated Discharge: 24 - 48 hours
Subjective/Interval History
-
Date of Service: April 15, 2024
Met with patient at the bedside. Overall, he is doing much better and believes that he is back at his baseline. He offers no complaints at the present time and was seen watching television and relaxing in his room.
Objective Data
-
Labs:
Labs
04/15/24 08:05
04/15/24 08:05
Vital Signs:
Vital Signs
Temp Pulse Resp BP Pulse Ox
97.5 F 54 16 124/86 95
04/15/24 03:30 04/15/24 07:39 04/15/24 07:39 04/15/24 03:30 04/15/24 07:39
I&O
04/14/24 04/15/24 04/16/24
06:59 06:59 06:59
Intake Total 60 / 60
Output Total 200 / 200 675 / 675
Balance -200 / -200 -615 / -615
Review of Systems
-
History Source: Patient
Constitutional: Reports No Symptoms
EENT: Reports No Symptoms Reported
Respiratory: Reports No Symptoms
Cardiac: Reports No Symptoms
Abdomen/GI: Reports No Symptoms
Breast: Reports No Symptoms
Genitourinary: Reports Other (Using a condom cath)
Musculoskeletal: Reports No Symptoms
Skin: Reports No Symptoms
Neuro: Reports No Symptoms
Endocrine: Reports No Symptoms
Hematologic / Lymphatic: Reports No Symptoms
Allergy / Immunology: Reports No Symptoms
Physical Exam
-
General: No Apparent Distress and Comfortable
HEENT: Atraumatic and Moist Mucous Membranes
Respiratory: Clear to Auscultation
Cardiac: Regular Rhythm and S1/S2
Breast: Deferred by me
GI: Soft, Nontender, Nondistended and Normal Bowel Sounds
Rectal: Deferred by Provider
Genito-urinary: Other (Condom catheter status)
Musculoskeletal: No Clubbing, No Cyanosis and No Edema
Skin: Warm and Dry
Neuro: Awake, Alert, Oriented and AO x 3
Psych: Calm
[2024-04-15] MEDS: VALIUM 2.5 MG PO (08:42)
[2024-04-15] MEDS: ROBITUSSIN 200 MG TUBE ×4 (08:43→21:20)
[2024-04-15] MEDS: ZOLOFT ORAL CONCENTRATE 100 MG PO (08:43)
[2024-04-15] MEDS: ALDACTONE 12.5 MG PO (08:43)
[2024-04-15] MEDS: MIRALAX 17 GRAMS TUBE (08:43)
[2024-04-15] MEDS: LYRICA 50 MG PO ×2 (08:43→20:16)
[2024-04-15] MEDS: SYMMETREL SYRUP 100 MG PO (08:43)
[2024-04-15] MEDS: NORVASC 5 MG PO (08:44)
[2024-04-15] MEDS: BYSTOLIC PO (08:44)
[2024-04-15] MEDS: SEROQUEL 25 MG PO ×2 (08:44→20:16)
[2024-04-15] MEDS: REFRESH EYE DROPS (PF) 1 DROPS BOTH EYES ×4 (08:45→21:20)
[2024-04-15] MEDS: BUSPAR 10 MG PO ×3 (08:45→21:20)
[2024-04-15] MEDS: LIORESAL 5 MG PO ×3 (08:45→21:20)
[2024-04-15 08:57] LABS: Hematocrit 40.6 % (39.0-52.0); Hemoglobin 13.3 g/dL (13.0-18.0); Mean Corp Hgb Conc. 32.8 g/dL (33.0-37.0); Mean Corpuscular Hgb 28.1 pg (27.0-31.0); Mean Corpuscular Volume 85.7 fL (80.0-94.0); Mean Platelet Volume 10.3 fL (7.4-10.4); Platelet Count 179 10^3/uL (130-400); Red Blood Cell Count 4.74 10^6/uL (4.70-6.10); Red Cell Dist. Width 14.9 % (11.5-14.5); White Blood Cell Count 5.6 10^3/uL (4.8-10.8)
[2024-04-15] MEDS: TYLENOL 650 MG PO (08:58)
[2024-04-15 09:04] LABS: Blood Urea Nitrogen 21 mg/dl (9-20); Calcium 9.5 mg/dl (8.4-10.2); Carbon Dioxide 25 mmol/L (22-30); Chloride 103 mmol/L (98-107); Estimated Creatinine Clearance > 125 ml/min; Glucose 104 mg/dl (70-99); Potassium 4.5 mmol/L (3.5-5.1); Sodium 141 mmol/L (135-145); eGFR > 60.00
[2024-04-15 11:15] VITALS: BP 136/67
--- NOTE | 2024-04-15 11:15 | W.PN.NEURO.1 ---
Today's Communication / Plan
-
.
Subjective/Objective
Subjective Data
Date of Service: April 15, 2024
CC: none
24 h events: intermittently bradycardic, BP has improved, afebrile, saturating well on room air.
No reports of seizures. Mr. Joseph denies having headaches, change in vision.
Brain MRI showed no acute infarcts.
Labs: Ammonia, CK�unremarkable.
U tox�positive for benzodiazepines.
PMH:pontine ICH with MERRILL(04/2023), HTN, gout, h/o DVT, LIBIA, MDD
PSH: PEG
SH:[place] resident; has 2 children, used to work at [email or web address]. Non-smoker.
FH:father-RA
All:ACEIs
ROS: limited due to dysarthria
General: In no acute distress.
Cardio: Regular rate and rhythm without murmur. Extremities are without cyanosis or edema.
Neuro:
Mental Status: Awakens to tactile stimuli. Oriented to self, place 'April 18, 2024 '. Impaired attention and preserved comprehension. Nonfluent. Follows simple requests consistently.
Cranial Nerves: Pupils are equally round and reactive to light. BL CARLOS. Visual wahl full to confrontation. No ptosis. Face symmetric. Normal hearing AU. The palate elevated well. SCMs and traps 5/5. Tongue midline. Spastic dysphonia and
moderate dysarthria.
Motor: Increased motor tone right greater than left. Spastic quadraparesis.
Reflexes: 3+ throughout
Coordination: No tremors, myoclonic movements
Gait: Nonambulatory.
Assessment and Plan:
I. Encephalopathy, likely toxic /vascular. Clinically improved.
II. 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
III. Cerebellar atrophy/dysarthria. Neurodegenerative?
-Continue close observation.
-Aspiration precautions
-MG panel
-Avoid cerebral hypoperfusion
-Outpatient neurology follow-up in 2-4 weeks.
I personally reviewed all radiology and labs along with past medical records pertinent to current medical problems. Total time spent in patient care is 36 minutes.
Thank you for allowing us to participate in the care of this patient. Please do not hesitate to contact us with any questions or concerns.
Objective Data
Vital Signs
Temp Pulse Resp BP Pulse Ox
36.4 C 53 16 141/78 95
04/15/24 07:25 04/15/24 08:44 04/15/24 07:39 04/15/24 08:44 04/15/24 07:39
Lab Results
04/15/24 08:05
04/15/24 08:05
Sodium 141 mmol/L (135-145) 04/15/24 08:05
Potassium 4.5 mmol/L (3.5-5.1) 04/15/24 08:05
BUN 21 mg/dl (9-20) H 04/15/24 08:05
Glucose 104 mg/dl (70-99) H 04/15/24 08:05
Calcium 9.5 mg/dl (8.4-10.2) 04/15/24 08:05
Ur Buprenorphine Negative (Negative) 04/14/24 09:39
Patient Allergies
lisinopril Allergy (Verified 04/13/24 23:11)
Swelling/ANGIOEDEMA
Vital Signs and Labs
-
Vital Signs and Labs:
Vital Signs
Temp Pulse Resp BP Pulse Ox
36.4 C 53 16 141/78 95
04/15/24 07:25 04/15/24 08:44 04/15/24 07:39 04/15/24 08:44 04/15/24 07:39
Lab Results
04/15/24 08:05
04/15/24 08:05
Sodium 141 mmol/L (135-145) 04/15/24 08:05
Potassium 4.5 mmol/L (3.5-5.1) 04/15/24 08:05
BUN 21 mg/dl (9-20) H 04/15/24 08:05
Glucose 104 mg/dl (70-99) H 04/15/24 08:05
Calcium 9.5 mg/dl (8.4-10.2) 04/15/24 08:05
Ur Buprenorphine Negative (Negative) 04/14/24 09:39
Medications
-
Medications:
Generic Name Dose Route Start Last Admin
Trade Name Freq PRN Reason Stop Dose Admin
Acetaminophen 650 mg 04/13/24 23:09 04/15/24 08:58
Acetaminophen 325 Mg Tablet PO 05/11/24 23:08 650 mg
Q4HPRN PRN Administration
mild pain/temp >100
Albuterol/Ipratropium 3 ml 04/13/24 23:09
Ipratropium 0.5/Albuterol 3 Mg (3 Ml Ampul) INH
R Q4HPRN PRN
shortness of breath/wheeze
Protocol
Albuterol/Ipratropium 3 ml 04/14/24 08:00 04/15/24 07:37
Ipratropium 0.5/Albuterol 3 Mg (3 Ml Ampul) INH 3 ml
R QID BRANDYN Administration
Protocol
Amantadine HCl 100 mg 04/14/24 08:00 04/15/24 08:43
Amantadine Syrup (100 Mg/10 Ml) Cup PO 05/12/24 07:59 100 mg
DAILY BRANDYN Administration
Amlodipine Besylate 5 mg 04/14/24 08:00 04/15/24 08:44
Amlodipine 5 Mg Tablet PO 05/12/24 07:59 5 mg
DAILY BRANDYN Administration
Artificial Tears 1 drops 04/13/24 23:00 04/15/24 08:45
Artificial Tears Pf (Refresh) 10 Drop Droperette BOTH EYES 05/11/24 22:59 1 drops
QID BRANDYN Administration
Baclofen 5 mg 04/13/24 23:09 04/15/24 08:45
Baclofen 5 Mg Tablet PO 05/11/24 23:08 5 mg
TID BRANDYN Administration
Buspirone HCl 10 mg 04/13/24 23:09 04/15/24 08:45
Buspirone 10 Mg Tablet PO 05/11/24 23:08 10 mg
TID BRANDYN Administration
Diazepam 5 mg 04/13/24 23:09 04/14/24 21:25
Diazepam 5 Mg Tablet PO 05/11/24 23:08 5 mg
HS BRANDYN Administration
Diazepam 5 mg 04/13/24 23:09
Diazepam 5 Mg Tablet PO 05/11/24 23:08
BIDPRN PRN
spasms
Diazepam 2.5 mg 04/14/24 08:00 04/15/24 08:42
Diazepam 5 Mg Tablet PO 05/12/24 07:59 2.5 mg
DAILY BRANDYN Administration
Guaifenesin 200 mg 04/13/24 23:09 04/15/24 08:43
Guaifenesin Oral Solution (200 Mg/10 Ml) Cup TUBE 05/11/24 23:08 200 mg
QID BRANDYN Administration
Melatonin 5 mg 04/13/24 23:09 04/14/24 21:24
Melatonin 5 Mg Tablet PO 05/11/24 23:08 5 mg
HS BRANDYN Administration
Nebivolol 10 mg 04/14/24 08:00 04/15/24 08:44
Nebivolol Hcl 10 Mg Tablet PO 05/12/24 07:59 Not Given
DAILY BRANDYN
Polyethylene Glycol 17 grams 04/14/24 08:00 04/15/24 08:43
Polyethylene Glycol Powder 17 Grams Packet TUBE 05/12/24 07:59 17 grams
DAILY BRANDYN Administration
Pregabalin 50 mg 04/14/24 08:00 04/15/24 08:43
Pregabalin 50 Mg Capsule PO 05/12/24 07:59 50 mg
BID BRANDYN Administration
Quetiapine Fumarate 25 mg 04/14/24 08:00 04/15/24 08:44
Quetiapine 25 Mg Tablet PO 05/12/24 07:59 25 mg
BID BRANDYN Administration
Sertraline HCl 100 mg 04/14/24 08:00 04/15/24 08:43
Sertraline 20 Mg/Ml In Oral Syringe PO 05/12/24 07:59 100 mg
DAILY BRANDYN Administration
Sodium Chloride 0 flush 04/13/24 22:00
Sodium Chloride 0.9% (Flush) Syringe IV 05/11/24 21:59
PER PROTOCOL BRANDYN
Spironolactone 12.5 mg 04/14/24 08:00 04/15/24 08:43
Spironolactone 12.5 Mg Dose (1/2 Of 25 Mg Tablet) PO 05/12/24 07:59 12.5 mg
DAILY BRANDYN Administration
Home Medications
-
Home Medications
amantadine HCl 50 mg/5 mL oral solution 100 mg PO DAILY Neurological Condition 12/14/23
baclofen 5 mg tablet 5 mg PO TID Muscle Spasms 12/14/23
buspirone 10 mg tablet 10 mg PO TID Depression 12/14/23
diazepam 5 mg tablet (Valium) 2.5 mg PO DAILY Muscle Spasms 12/14/23
diazepam 5 mg tablet (Valium) 5 mg PO BIDPRN PRN spasms 12/14/23
diazepam 5 mg tablet (Valium) 5 mg PO HS Muscle Spasms 12/14/23
fluticasone propionate 50 mcg/actuation nasal spray,suspension 1 spray intranasal BID Congestion 12/14/23
nebivolol 10 mg tablet (Bystolic) 10 mg PO DAILY Blood Pressure 12/14/23
nebivolol 5 mg tablet (Bystolic) 5 mg PO HS Blood Pressure 12/14/23
nystatin 100,000 unit/gram topical powder 1 applic topical BID groin 12/14/23
polyethylene glycol 3350 17 gram oral powder packet (Miralax) 17 g PO DAILY Constipation 12/14/23
sertraline 20 mg/mL oral concentrate 100 mg PO DAILY Depression 12/14/23
therapeutic multivitamin 1 tab PO DAILY Supplement 12/14/23
spironolactone 25 mg tablet 12.5 mg (1/2 x 25 mg) PO DAILY #0 tabs 12/21/23
acetaminophen 325 mg tablet (Tylenol) 650 mg PO Q4HPRN PRN mild pain/temp >100 04/13/24
amlodipine 5 mg tablet 5 mg PO DAILY Blood Pressure 04/13/24
bisacodyl 10 mg rectal suppository (Dulcolax (bisacodyl)) 10 mg KS DAILYPRN PRN if mom ineffect aftr 24 hrs 04/13/24
dextran 70-hypromellose (PF) 0.1 %-0.3 % eye drops in a dropperette (Artificial Tears (PF)) 1 drp BOTH EYES QID Eye Condition 04/13/24
loratadine 10 mg tablet (Claritin) 10 mg PO DAILY Allergies 04/13/24
magnesium hydroxide 400 mg/5 mL oral suspension (Milk of Magnesia) 30 ml PO [id number] PRN no bm 3 days 04/13/24
melatonin 5 mg tablet 5 mg PO HS Sleep 04/13/24
pregabalin 50 mg capsule (Lyrica) 50 mg PO BID Neurological Condition 04/13/24
quetiapine 25 mg tablet 25 mg PO BID 04/13/24
sodium phosphates 19 gram-7 gram/118 mL enema (Fleet Enema) 118 ml KS DAILYPRN PRN if dulcolax ineffect aftr 24 hrs 04/13/24
white petrolatum-mineral oil 83 %-15 % eye ointment 1 applic BOTH EYES HS Eye Condition 04/13/24
zinc oxide 1 ea topical DAILY sacrum 04/13/24
--- NOTE | 2024-04-15 11:41 | CM ---
Reviewed the chart notes and spoke with the patient's mother via telephone. Patient was sleeping soundly. The patient is short term at [facility] since 12/2023. The patient is alert and oriented, but requires assistance with all ADLs.
Patient is wheelchair bound. Crystal lift is used for transfers. The patient has a peg tube which the WA uses for hydration daily. The patient is on honey thick liquids and minced bite size meals. The patient's speech is slow and difficult to
understand at times per the mother. The parents had the patient at home for three months in the living room with hopes of him living with them. Per mother, the patient was approved for 16 hours of care daily, but unfortunately where they live it
is difficult to impossible to get help. No public transportation. The patient has his name on the waiting list with [facility]. Per mother, was told it could take over a year for placement. The family has looked into other [facility], but would be too far
for the patient's spouse to visit with his children. Per mother, the only people who are able to visit are herself, patient's father, patient's spouse and their two children. The patient's sister is a single mom and brother has special needs
children. CM spoke with Natasha at [facility], auth will need to be attempted for return. CM continues to be available to patient/family and is monitoring medical plan for needs at discharge.
Plan: Discharge back to [facility] once auth attempted/obtained. PT/OT evaluations pending.
[facility] NPI# [id number]
Dr. Rao NPI# [id number]
[2024-04-15 12:49] LABS: HDL Cholesterol 30 mg/dl; LDL Cholesterol, Calculated 110 mg/dl; Total Cholesterol 173 mg/dl (50-199); Triglyceride 167 mg/dl (10-149); Very Low Density Lipoprotein 33 mg/dl (0-30)
[2024-04-15 13:01] LABS: Glycohemoglobin (HgbA1c) 5.2 % (4.0-5.6)
[2024-04-15 15:30] VITALS: BP 135/80
[2024-04-15 19:37] VITALS: BP 134/92
[2024-04-15] MEDS: MELATONIN 5 MG PO (21:19)
[2024-04-15] MEDS: VALIUM 5 MG PO (21:20)
[2024-04-15 23:18] VITALS: BP 121/76
[2024-04-16 03:54] VITALS: BP 142/88
--- NOTE | 2024-04-16 07:06 | W.PN.HOSP.TC ---
Addendum entered and electronically signed by Kip Jamil MD 04/16/24 13:48:
seen and examined, states that he is feeling better. no numbness, tingling, loss of sensations.
NAD, resting comfortably in bed
Scleral anicteric
Moist mucous membranes
No JVD
CTA bilateral
Normal S1-S2 no murmurs
Soft nontender nondistended bowel sounds active
No peripheral pitting edema
Moves extremities spontaneously
AAO
Encephalopathy which was acute now resolved. Likely toxic versus vascular.
MRI without evidence of acute changes.
Neuro following. No further recs provided.
DC to SNF when bed available
Original Note:
Today's Communication/Plan
-
Patient's status remains the same as yesterday. He is hemodynamically stable and medically stable. Currently awaiting finalization of discharge planning. He requires prior authorization from his insurance that [employer] for nursing home facility
as his prior Auth from before has . We will discharge him to nursing home facility following the completion of his discharge planning.
Assessment / Plan
Assessment / Plan
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 History
was obtained from patient's family at the bedside in the emergency department. Patient lives in a [facility]cc. His family reported that the patient began complaining of a sore throat a couple days ago. They also noted the patient was suffering
from increased congestion. When they came to visit him in the mcc they noted that he was very somnolent for them for about 4 hours while they were with him. Upon waking up from his sleep his speech was all garbled and he was not making
any sense. The family noted that he was confused at that time. The state of confusion lasted for about an hour and his family noticed that his speech improved but was not back at his baseline. His family reports that he often gets changes in his
neurological status in the setting of urinary tract infections. He uses an external urinary catheter. He was brought to [facility] emergency department. In the emergency department he was afebrile hemodynamically stable and was not in acute
distress. CT of the head conducted in the emergency department showed no acute changes. X-ray was negative for pneumonia and his COVID and flu tests were negative. Urinalysis was unremarkable. Patient was admitted for altered mental status
secondary to possible TIA.
Impression/Plan:
Altered mental status secondary to possible TIA, toxic metabolic, or postictal state: Monitoring
Prior to presentation to the emergency department the patient was in acute state of confusion with difficulty finding words
CT of the head conducted in the emergency department showed no acute changes
MRI ordered for further evaluation -there were no acute intracranial abnormalities found.
EEG in the morning
Myasthenia gravis panel ordered by neurology
Appreciate neurology consult. -They recommend close observation, aspiration precautions, MG panel, avoid cerebral hypoperfusion, and recommend a outpatient neurology follow-up within 2 to 4 weeks postdischarge.
Admitted to telemetry
Patient appears to be at his baseline.
Acute bronchitis versus aspiration pneumonitis:
Chest x-ray was negative for pneumonia
Screening for MRSA
Speech therapy consulted
Give moist/minced solids with mildly thickened liquid
Guaifenesin 200 mg given
-Essential hypertension:
Continue nebivolol 10 mg
Will continue amlodipine and spironolactone Home medications
-Thrombocytopenia: Resolved
Patient had isolated thrombocytopenia prior to getting any heparin. On 04/13/2024
Current platelet count is 228 which is back within normal limits.
-HX Pontine Intracranial Hemorrhage with Chronic Spasticity / Chronic Generalized Neuropathy / Chronic Nystagmus with Impaired Vision and Visual Field Defect:
Continue home medication Valium
Continue his amantadine and baclofen
-Anxiety/depression:
Continue BuSpar, Zoloft and Seroquel home medication
-G-tube status
Dietary consulted
Speech and swallow eval suggested thickened fluids. Patient and family contacted me later on in the day hoping to get a thicker food ordered. Food upgraded to honey level of thickness.
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
-DVT prophylaxis: Lovenox
-FULL CODE STATUS
Anticipated Discharge: Within 24 hours
Subjective/Interval History
-
Date of Service: April 16, 2024
Met with patient at the bedside. Overall, he is doing well and offers no complaints at the present time. He is seen resting in bed watching television.
Objective Data
-
Labs:
Laboratory Results
04/16/24
07:04
WBC Pending
Hgb Pending
Hct Pending
Plt Count Pending
Sodium Pending
Potassium Pending
Chloride Pending
Carbon Dioxide Pending
BUN Pending
Creatinine Pending
Glucose Pending
Calcium Pending
Total Bilirubin Pending
AST Pending
ALT Pending
Alkaline Phosphatase Pending
Vital Signs:
Vital Signs
Temp Pulse Resp BP Pulse Ox
98.1 F 64 18 142/88 94
04/16/24 03:54 04/16/24 03:54 04/16/24 03:54 04/16/24 03:54 04/16/24 03:54
I&O
04/15/24 04/16/24 04/17/24
06:59 06:59 06:59
Intake Total 60 / 60 640 / 640
Output Total 675 / 675 910 / 910
Balance -615 / -615 -270 / -270
Review of Systems
-
All other systems: Reviewed and negative
Physical Exam
-
General: Well Developed, Well Nourished and No Apparent Distress
HEENT: Normocephalic, Atraumatic and Moist Mucous Membranes
Respiratory: Clear to Auscultation
Cardiac: Regular Rhythm and S1/S2
Breast: Deferred by me
GI: Soft, Nontender, Nondistended and Normal Bowel Sounds
Rectal: Deferred by Provider
Genito-urinary: Deferred by me
Musculoskeletal: No Clubbing, No Cyanosis and No Edema
Skin: Warm and Dry
Neuro: Awake, Alert, Oriented and AO x 3
Psych: Calm
[2024-04-16 07:15] VITALS: BP 141/77
[2024-04-16] MEDS: DUONEB 3 ML INH ×4 (07:15→19:52)
[2024-04-16 08:04] LABS: Hematocrit 39.9 % (39.0-52.0); Hemoglobin 13.2 g/dL (13.0-18.0); Mean Corp Hgb Conc. 33.1 g/dL (33.0-37.0); Mean Corpuscular Hgb 27.6 pg (27.0-31.0); Mean Corpuscular Volume 83.5 fL (80.0-94.0); Platelet Count 225 10^3/uL (130-400); Red Blood Cell Count 4.78 10^6/uL (4.70-6.10); Red Cell Dist. Width 14.9 % (11.5-14.5); White Blood Cell Count 6.2 10^3/uL (4.8-10.8)
[2024-04-16 08:14] LABS: ALT (SGPT) 21 U/L (0-50); AST (SGOT) 18 U/L (17-59); Albumin 4.4 g/dl (3.5-5.0); Alkaline Phosphatase 115 U/L (38-126); Blood Urea Nitrogen 20 mg/dl (9-20); Calcium 9.7 mg/dl (8.4-10.2); Carbon Dioxide 27 mmol/L (22-30); Chloride 101 mmol/L (98-107); Estimated Creatinine Clearance > 125 ml/min; Glucose 101 mg/dl (70-99); Potassium 4.5 mmol/L (3.5-5.1); Sodium 140 mmol/L (135-145); Total Bilirubin 0.4 mg/dl (0.2-1.3); Total Protein 7.7 g/dl (6.3-8.2); eGFR > 60.00
[2024-04-16] MEDS: LIORESAL 5 MG PO ×3 (08:43→21:13)
[2024-04-16] MEDS: ALDACTONE 12.5 MG PO (08:43)
[2024-04-16] MEDS: LYRICA 50 MG PO ×2 (08:43→21:13)
[2024-04-16] MEDS: SYMMETREL SYRUP 100 MG PO (08:43)
[2024-04-16] MEDS: REFRESH EYE DROPS (PF) 1 DROPS BOTH EYES ×4 (08:43→21:12)
[2024-04-16] MEDS: BYSTOLIC 10 MG PO (08:44)
[2024-04-16] MEDS: BUSPAR 10 MG PO ×3 (08:45→21:13)
[2024-04-16] MEDS: NORVASC 5 MG PO (08:45)
[2024-04-16] MEDS: SEROQUEL 25 MG PO ×2 (08:45→21:13)
[2024-04-16] MEDS: ZOLOFT ORAL CONCENTRATE 100 MG PO (08:46)
[2024-04-16] MEDS: MIRALAX 17 GRAMS TUBE (08:46)
[2024-04-16] MEDS: ROBITUSSIN 200 MG TUBE ×4 (08:46→21:14)
[2024-04-16] MEDS: VALIUM 2.5 MG PO (08:47)
[2024-04-16 11:20] VITALS: BP 125/78
--- NOTE | 2024-04-16 13:07 | CM ---
Auth started in [employer] for [facility]; Pended Ref# [id number]; Clinicals faxed to [phone]; for start 04/17/24. CM continues to be available to patient/family and is monitoring medical plan for needs at discharge.
Plan: Discharge back to [facility].
[2024-04-16 15:15] VITALS: BP 128/79
--- NOTE | 2024-04-16 17:38 | PTOTSP ---
ST Follow-Up
Pt continues to present with his baseline moderate oropharyngeal dysphagia.
Recommendations:
- Change diet back to his baseline diet of minced and moist solids with mildly thick liquids and meds crushed in puree or via PEG tube.
- Aspiration precautions.
- Ongoing pt eduction and advocacy for return to SNF.
- [employer] to f/u re: pt's diet tolerance of recommended consistencies and to determine whether pt is in need of a repeat video fluoroscopic swallow study.
[2024-04-16 19:15] VITALS: BP 140/82
[2024-04-16] MEDS: VALIUM 5 MG PO (21:13)
[2024-04-16] MEDS: MELATONIN 5 MG PO (21:13)
[2024-04-16 23:33] VITALS: BP 127/77
[2024-04-17] VITALS (7 sets, daily range): BP systolic 120–159; BP diastolic 77–95; PULSE 66; O2SAT 95
--- NOTE | 2024-04-17 07:26 | W.PN.HOSP.TC ---
Addendum entered and electronically signed by Mal Castro MD 04/18/24 00:43:
Attending Addendum-
I saw and evaluated the patient. I reviewed the resident�s note and agree with findings and plan as documented in the resident�s note. Sub: seen with family present. Patient able to coverse but dysarthric. Appears comfortable. Full 12 point ROS
reviewed and negative except as documented Exam: Vitals reviewed in chart GEN-NAD HEENT oculocephalic/saccadic eye movements, heart RRR lungs clear Abd- g tube in place Neuro AAO x 3 dysarthria - condom cath in place
Plan:
# Altered mental status secondary to TME
unclear etiology- polypharmacy?
CT of the head -no acute changes
MRI brain- no acute intracranial abnormalities found.
Myasthenia gravis panel-P
Appreciate neurology consult-outpatient neurology follow-up within 2 to 4 weeks postdischarge.
Patient appears to be at his baseline.
-Essential hypertension:
Continue nebivolol 10 mg
restart amlodipine and spironolactone
-Thrombocytopenia:
Resolved
Patient had isolated thrombocytopenia prior to getting any heparin
platelet count is 239
-HX Pontine Intracranial Hemorrhage with Chronic Spasticity / Chronic Generalized Neuropathy / Chronic Nystagmus with Impaired Vision and Visual Field Defect:
Continue home medication Valium
Continue his amantadine and baclofen
-Anxiety/depression:
Continue BuSpar, Zoloft and Seroquel home medication
-Dysphagia/G-tube
Dietary consulted
Speech and swallow eval suggested thickened fluids
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
-DVT prophylaxis: Lovenox- shouldbe on snf at facility
-FULL CODE STATUS
Dispo DC back to [facility] in am
Time spent coordinating care, review of plan of care with resident, personally reviewed records in EMR, med rec, consults, notes, labs, radiology, d/w nursing, mother� 53 mins
Original Note:
Today's Communication/Plan
-
Patient appears to be at his baseline at the present time. He is medically appropriate for discharge from the hospital and is awaiting completion of discharge planning. Plan for discharge to [facility]. Awaiting
prior authorization.
Assessment / Plan
Assessment / Plan
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 History
was obtained from patient's family at the bedside in the emergency department. [facility]. His family reported that the patient began complaining of a sore throat a couple days ago. They also noted the patient was suffering
from increased congestion. When they came to visit him in the prison they noted that he was very somnolent for them for about 4 hours while they were with him. Upon waking up from his sleep his speech was all garbled and he was not making
any sense. The family noted that he was confused at that time. The state of confusion lasted for about an hour and his family noticed that his speech improved but was not back at his baseline. His family reports that he often gets changes in his
neurological status in the setting of urinary tract infections. He uses an external urinary catheter. He was brought to [facility] emergency department. In the emergency department he was afebrile hemodynamically stable and was not in acute
distress. CT of the head conducted in the emergency department showed no acute changes. X-ray was negative for pneumonia and his COVID and flu tests were negative. Urinalysis was unremarkable. Patient was admitted for altered mental status
secondary to possible TIA.
Impression/Plan:
Altered mental status secondary to possible TIA, toxic metabolic, or postictal state: Monitoring
Prior to presentation to the emergency department the patient was in acute state of confusion with difficulty finding words
CT of the head conducted in the emergency department showed no acute changes
MRI ordered for further evaluation -there were no acute intracranial abnormalities found.
EEG in the morning
Myasthenia gravis panel ordered by neurology
Appreciate neurology consult. -They recommended close observation, aspiration precautions, MG panel, avoid cerebral hypoperfusion, and recommend a outpatient neurology follow-up within 2 to 4 weeks postdischarge.
Admitted to telemetry
Patient appears to be at his baseline.
Acute bronchitis versus aspiration pneumonitis:
Chest x-ray was negative for pneumonia
Screening for MRSA
Speech therapy consulted
Give moist/minced solids with mildly thickened liquid
Guaifenesin 200 mg given
-Essential hypertension:
Continue nebivolol 10 mg
Will continue amlodipine and spironolactone Home medications
-Thrombocytopenia: Resolved
Patient had isolated thrombocytopenia prior to getting any heparin. On 04/13/2024
Current platelet count is 228 which is back within normal limits.
-HX Pontine Intracranial Hemorrhage with Chronic Spasticity / Chronic Generalized Neuropathy / Chronic Nystagmus with Impaired Vision and Visual Field Defect:
Continue home medication Valium
Continue his amantadine and baclofen
-Anxiety/depression:
Continue BuSpar, Zoloft and Seroquel home medication
-G-tube status
Dietary consulted
Speech and swallow eval suggested thickened fluids. Patient and family contacted me later on in the day hoping to get a thicker food ordered. Food upgraded to honey level of thickness.
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
-DVT prophylaxis: Lovenox
-FULL CODE STATUS
Anticipated Discharge: Within 24 hours
Subjective/Interval History
-
Date of Service: April 17, 2024
Met the patient at the bedside. Overall he is doing well and offers no complaints at the present time. He is calm and pleasant in discussion. Seen watching television and relaxing in his bed after breakfast. He is aware of upcoming discharge
planning to a long-term facility.
Objective Data
-
Vital Signs:
Vital Signs
Temp Pulse Resp BP Pulse Ox
97.8 F 64 18 159/90 94
04/17/24 07:02 04/17/24 07:02 04/17/24 07:02 04/17/24 07:02 04/17/24 07:02
I&O
04/16/24 04/17/24 04/18/24
06:59 06:59 06:59
Intake Total 640 / 640 620 / 620
Output Total 910 / 910 1650 / 1650
Balance -270 / -270 -1030 / -1030
Review of Systems
-
History Source: Patient
All other systems: Reviewed and negative
Physical Exam
-
General: Well Developed, Well Nourished, No Apparent Distress and Comfortable
HEENT: Atraumatic and Moist Mucous Membranes
Respiratory: Clear to Auscultation
Cardiac: Regular Rhythm and S1/S2
Breast: Deferred by me
GI: Soft, Nontender, Nondistended, Normal Bowel Sounds and Other (G-tube status)
Rectal: Deferred by Provider
Genito-urinary: Other (Condom catheter status)
Musculoskeletal: No Clubbing, No Cyanosis and No Edema
Skin: Warm and Dry
Neuro: Awake, Alert, Oriented, AO x 3 and Other (Spastic dysphonia and spastic quadriparesis)
Psych: Calm
[2024-04-17] MEDS: DUONEB 3 ML INH ×3 (07:58→19:37)
[2024-04-17] MEDS: LYRICA 50 MG PO ×2 (08:32→20:38)
[2024-04-17] MEDS: BYSTOLIC 10 MG PO (08:32)
[2024-04-17] MEDS: ROBITUSSIN 200 MG TUBE ×4 (08:32→21:39)
[2024-04-17] MEDS: SYMMETREL SYRUP 100 MG PO (08:32)
[2024-04-17] MEDS: BUSPAR 10 MG PO ×3 (08:33→21:40)
[2024-04-17] MEDS: ALDACTONE 12.5 MG PO (08:33)
[2024-04-17] MEDS: LIORESAL 5 MG PO ×3 (08:33→21:39)
[2024-04-17] MEDS: VALIUM 2.5 MG PO (08:34)
[2024-04-17] MEDS: NORVASC 5 MG PO (08:35)
[2024-04-17] MEDS: REFRESH EYE DROPS (PF) 1 DROPS BOTH EYES ×4 (08:35→21:40)
[2024-04-17] MEDS: ZOLOFT ORAL CONCENTRATE 100 MG PO (08:35)
[2024-04-17] MEDS: MIRALAX 17 GRAMS TUBE (08:35)
[2024-04-17] MEDS: SEROQUEL 25 MG PO ×2 (08:35→20:38)
[2024-04-17 11:34] LABS: Hemoglobin 14.6 g/dL (13.0-18.0); Mean Corp Hgb Conc. 33.2 g/dL (33.0-37.0); Mean Corpuscular Hgb 27.6 pg (27.0-31.0); Mean Corpuscular Volume 83.2 fL (80.0-94.0); Platelet Count 239 10^3/uL (130-400); Red Blood Cell Count 5.29 10^6/uL (4.70-6.10); Red Cell Dist. Width 14.9 % (11.5-14.5); White Blood Cell Count 8.7 10^3/uL (4.8-10.8)
[2024-04-17 11:51] LABS: ALT (SGPT) 23 U/L (0-50); AST (SGOT) 21 U/L (17-59); Albumin 4.7 g/dl (3.5-5.0); Alkaline Phosphatase 121 U/L (38-126); Blood Urea Nitrogen 17 mg/dl (9-20); Carbon Dioxide 22 mmol/L (22-30); Chloride 101 mmol/L (98-107); Estimated Creatinine Clearance > 125 ml/min; Glucose 111 mg/dl (70-99); Potassium 4.6 mmol/L (3.5-5.1); Sodium 142 mmol/L (135-145); Total Bilirubin 0.7 mg/dl (0.2-1.3); Total Protein 8.5 g/dl (6.3-8.2); eGFR > 60.00
--- NOTE | 2024-04-17 14:23 | PN.CDI ---
Addendum entered and electronically signed by Thor Muniz MD, Resident 04/19/24 18:30:
Note from 04/18/24 addended. Patient has Functional quadriplegia.
Original Note:
CDI
- -
CDI:
Physician Documentation Request
Admit Date: 04/13/24 22:23
Dear Doctor,
Please review the following and provide your response in the progress notes.
Clinical Indicators:
- Patient admit for altered mental status 'secondary to possible TIA, toxic metabolic, or postictal state'
- 04/17 PN 'HX Pontine Intracranial Hemorrhage with Chronic Spasticity / Chronic Generalized Neuropathy'
- Patient requiring complete care for all hygiene, feeding, activities
Please provide further specificity as noted below:
Functional quadriplegia (complete immobility due to severe physical disability or frailty)
Other
Use of terms such as suspected, likely, concern for, or probable (associated with a specific diagnosis that is being evaluated, monitored, or treated as if it exists) are acceptable and can be coded in the inpatient setting, when documented at the
time of discharge.
Thank you,
Katt Nation RN
CDI Specialist
Please use your independent medical judgment in providing your response.
[2024-04-17 15:51] LABS: Acetylcholine Receptor Bind Ab 0.1 nmol/L (0.0-0.4)
--- NOTE | 2024-04-17 17:17 | CM ---
Patient seen at bedside with mom.
Still await insurance auth for [facility]
Spoke with Grecia dimas who states that [facility] does not do vest therapy.
PLAN: [facility], pending insurance authorization
[2024-04-17] MEDS: VALIUM 5 MG PO (21:39)
[2024-04-17] MEDS: MELATONIN 5 MG PO (21:39)
[2024-04-18 03:07] VITALS: BP 133/92
[2024-04-18] MEDS: DUONEB 3 ML INH (07:08)
[2024-04-18 07:15] VITALS: BP 129/79
[2024-04-18] MEDS: ROBITUSSIN 200 MG TUBE ×3 (09:25→17:11)
[2024-04-18] MEDS: LIORESAL 5 MG PO ×2 (09:26→15:18)
[2024-04-18] MEDS: BYSTOLIC 10 MG PO (09:26)
[2024-04-18] MEDS: SEROQUEL 25 MG PO (09:26)
[2024-04-18] MEDS: VALIUM 2.5 MG PO (09:26)
[2024-04-18] MEDS: ALDACTONE 12.5 MG PO (09:26)
[2024-04-18] MEDS: MIRALAX 17 GRAMS TUBE (09:27)
[2024-04-18] MEDS: NORVASC 5 MG PO (09:27)
[2024-04-18] MEDS: LYRICA 50 MG PO (09:27)
[2024-04-18] MEDS: SYMMETREL SYRUP 100 MG PO (09:27)
[2024-04-18] MEDS: REFRESH EYE DROPS (PF) 1 DROPS BOTH EYES ×3 (09:27→17:11)
[2024-04-18] MEDS: BUSPAR 10 MG PO ×2 (09:27→15:18)
[2024-04-18] MEDS: ZOLOFT ORAL CONCENTRATE 100 MG PO (09:28)
[2024-04-18 11:00] VITALS: BP 138/78
--- NOTE | 2024-04-18 14:11 | W.PN.HOSP.TC ---
Addendum entered and electronically signed by Thor Muniz MD, Resident 04/19/24 18:29:
Addendum: Patient has Functional quadriplegia
Addendum entered and electronically signed by Mal Castro MD 04/18/24 23:47:
Attending Addendum-
I saw and evaluated the patient. I reviewed the resident�s note and agree with findings and plan as documented in the resident�s note. Sub: seen alone Patient able to converse and express himself but dysarthric. Appears comfortable. Staes 'yes' to
being ready to leave and being pain free. Full 12 point ROS reviewed and negative except as documented Exam: Vitals reviewed in chart GEN-NAD HEENT oculocephalic/saccadic eye movements, heart RRR lungs clear Abd- g tube in place Neuro AAO x 3
dysarthria - condom cath in place
Plan:
# Altered mental status secondary to TME
-resolved
unclear etiology- polypharmacy?
CT of the head -no acute changes
MRI brain- no acute intracranial abnormalities found.
Myasthenia gravis panel-P
Appreciate neurology consult-outpatient neurology follow-up within 2 to 4 weeks postdischarge.
Patient appears to be at his baseline.
-Essential hypertension:
Continue nebivolol 10 mg
restart amlodipine and spironolactone
-Thrombocytopenia:
Resolved
Patient had isolated thrombocytopenia prior to getting any heparin
platelet count is 239
-HX Pontine Intracranial Hemorrhage with Chronic Spasticity / Chronic Generalized Neuropathy / Chronic Nystagmus with Impaired Vision and Visual Field Defect:
Continue home medication Valium
Continue his amantadine and baclofen
-Anxiety/depression:
Continue BuSpar, Zoloft and Seroquel home medication
-Dysphagia/G-tube
Dietary consulted
Speech and swallow eval suggested thickened fluids
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
-DVT prophylaxis: Lovenox- shouldbe on mcc at facility
-FULL CODE STATUS
Dispo DC back to [facility] today
Time spent coordinating care, DC planning, review of DC plan of care with resident, transition of care, review of records, med rec/scripts sent electronically, consults, notes, d/w consultants, nursing, family, and CM� 36 mins
Original Note:
Today's Communication/Plan
-
Patient has been authorized to return back home to his long-term living facility it is advised that the patient receive physical therapy as he was decompensated prior to coming to this hospital and would benefit from rehab.
Assessment / Plan
Assessment / Plan
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 History
was obtained from patient's family at the bedside in the emergency department. [facility]. His family reported that the patient began complaining of a sore throat a couple days ago. They also noted the patient was suffering
from increased congestion. When they came to visit him in the jail they noted that he was very somnolent for them for about 4 hours while they were with him. Upon waking up from his sleep his speech was all garbled and he was not making
any sense. The family noted that he was confused at that time. The state of confusion lasted for about an hour and his family noticed that his speech improved but was not back at his baseline. His family reports that he often gets changes in his
neurological status in the setting of urinary tract infections. He uses an external urinary catheter. He was brought to [facility] emergency department. In the emergency department he was afebrile hemodynamically stable and was not in acute
distress. CT of the head conducted in the emergency department showed no acute changes. X-ray was negative for pneumonia and his COVID and flu tests were negative. Urinalysis was unremarkable. Patient was admitted for altered mental status
secondary to possible TIA.
Impression/Plan:
Altered mental status secondary to possible TIA, toxic metabolic, polypharmacy or postictal state: Monitoring
Prior to presentation to the emergency department the patient was in acute state of confusion with difficulty finding words
CT of the head conducted in the emergency department showed no acute changes
MRI ordered for further evaluation -there were no acute intracranial abnormalities found.
EEG in the morning
Myasthenia gravis panel ordered by neurology
Appreciate neurology consult. -They recommended close observation, aspiration precautions, MG panel, avoid cerebral hypoperfusion, and recommend a outpatient neurology follow-up within 2 to 4 weeks postdischarge.
Admitted to telemetry
Patient appears to be at his baseline.
Acute bronchitis versus aspiration pneumonitis:
Chest x-ray was negative for pneumonia
Screening for MRSA
Speech therapy consulted
Give moist/minced solids with mildly thickened liquid
Guaifenesin 200 mg given
-Essential hypertension:
Continue nebivolol 10 mg
Will continue amlodipine and spironolactone Home medications
-Thrombocytopenia: Resolved
Patient had isolated thrombocytopenia prior to getting any heparin. On 04/13/2024
Current platelet count is 228 which is back within normal limits.
-HX Pontine Intracranial Hemorrhage with Chronic Spasticity / Chronic Generalized Neuropathy / Chronic Nystagmus with Impaired Vision and Visual Field Defect:
Continue home medication Valium
Continue his amantadine and baclofen
-Anxiety/depression:
Continue BuSpar, Zoloft and Seroquel home medication
-G-tube status
Dietary consulted
Speech and swallow eval suggested thickened fluids. Patient and family contacted me later on in the day hoping to get a thicker food ordered. Food upgraded to honey level of thickness.
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
-DVT prophylaxis: Lovenox
-FULL CODE STATUS
Anticipated Discharge: Today
Subjective/Interval History
-
Date of Service: April 18, 2024
Met with patient at the bedside. He is calm and pleasant in discussion. He has no complaints at the present time. He is aware that he is going to be discharged today and looks forward to going back to his long-term living facility.
Objective Data
-
Vital Signs:
Vital Signs
Temp Pulse Resp BP Pulse Ox
98.2 F 67 17 138/78 94
04/18/24 11:00 04/18/24 11:00 04/18/24 11:00 04/18/24 11:00 04/18/24 11:00
I&O
04/17/24 04/18/24 04/19/24
06:59 06:59 06:59
Intake Total 620 / 620 960 / 960
Output Total 1650 / 1650 1250 / 1250
Balance -1030 / -1030 -290 / -290
Review of Systems
-
History Source: Patient
All other systems: Reviewed and negative
Physical Exam
-
General: Well Developed, Well Nourished and No Apparent Distress
HEENT: Normocephalic, Atraumatic and Moist Mucous Membranes
Respiratory: Clear to Auscultation
Cardiac: Regular Rhythm and S1/S2
Breast: Deferred by me
GI: Soft, Nontender, Nondistended, Normal Bowel Sounds and Other (G-tube status)
Rectal: Deferred by Provider
Genito-urinary: Other (Condom catheter status)
Musculoskeletal: No Clubbing, No Cyanosis and No Edema
Skin: Warm and Dry
Neuro: Awake, Alert, Oriented and AO x 3
Psych: Calm
[2024-04-18 15:15] VITALS: BP 124/85
--- NOTE | 2024-04-18 16:24 | CM ---
Notified by Winnie Daniel from [employer]
Benefits termed starting today.
Notifed patient/mom regarding [employer].
Notified admissions.
tt resident Thor Muniz
Patient to be discharged back to [facility]
PLAN: Discharge to [facility]
Transport via ambulance at 7:30 - forms on chart.
Phone #: [phone]
Fax #: [phone]
--- NOTE | 2024-04-18 17:00 | W.DCSUMMARY ---
Addendum entered and electronically signed by Mal Castro MD 04/18/24 23:48:
Read, reviewed, and agree. See same day progress note for additional details. DC back to [facility]
Abebe Castro MD
Original Note:
Documented by User: Thor Muniz MD, Resident 04/18/24 17:00
Discharge Summary
Discharge Data
Date of Admission: 04/13/24
Date of Discharge: 04/18/24
-
Pending Results: No
Hospital Course
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 History was
obtained from patient's family at the bedside in the emergency department. Patient lives in a fpc. His family reported that the patient began complaining of a sore throat a couple prior to his presentation. They also noted the patient
was suffering from increased congestion. When they came to visit him in the fpc they noted that he was very somnolent for them for about 4 hours while they were with him. Upon waking up from his sleep his speech was all garbled and he was
not making any sense. The family noted that he was confused at that time. The state of confusion lasted for about an hour and his family noticed that his speech improved but was not back at his baseline. His family reports that he often gets
changes in his neurological status in the setting of urinary tract infections. He uses an external urinary catheter. He was brought to [facility] emergency department. In the emergency department he was afebrile hemodynamically stable and
was not in acute distress. CT of the head conducted in the emergency department showed no acute changes. X-ray was negative for pneumonia and his COVID and flu tests were negative. Urinalysis was unremarkable. Patient was admitted to [place] [facility] for altered mental status secondary to possible TIA.
Neurology was consulted in regards to this patient's altered mental status. An MRI was ordered and the patient was monitored on telemetry. The patient slowly returned to his baseline over the next 24 hours. Patient was screened for MRSA and was
found negative. Speech therapy consulted and recommended thickened liquids. The patient found that the thickened liquid diet was not adequate enough and the diet was further thickened to honey level of thickness. Home meds for essential
hypertension, anxiety, depression were continued. MRI showed no evidence of acute changes. Neurology suspects that it was encephalopathy likely toxic versus vascular. Patient believes that he is back at his baseline and appropriate for discharge
at the present time.
Patient has reached maximal benefit from this hospital admission is appropriate for discharge at the present time. There are no barriers that would impede the patient from being safely discharged. Patient will be discharged to a [facility].
It is recommended that the patient undergo physical therapy after discharge as he was in a deconditioned state on his presentation to the emergency department. Patient is recommended to follow-up with his neurologist in the outpatient setting after
his discharge. Patient is appropriate for follow-up with his primary care provider in the outpatient setting.
Discharge Plan
-
Patient Disposition: [facility]/SNF
Discharge Diagnosis/Procedures: Encephalopathy, likely toxic/vascular
Condition: Good
Diet: No restrictions
Activity: No restrictions
Driving Restrictions: As prior to admission
Bathing Restrictions: None
Referrals:
Raymond Eckert MD [Family Provider] - in one to two weeks
Maritza Garcia MD [Active] - in two to three weeks
Additional Discharge Medication Instructions: Patient should receive PT following discharge as he has deconditioned during his hospitalization.
Prescriptions:
Continued
amantadine HCl 50 mg/5 mL Solution
100 mg PO DAILY
polyethylene glycol 3350 [Miralax] 17 gram Powder In Packet
17 g PO DAILY
therapeutic multivitamin Tablet
1 tab PO DAILY
buspirone 10 mg Tablet
10 mg PO TID
nystatin 100,000 unit/gram Powder
1 applic TOPICAL BID
sertraline 20 mg/mL Concentrate
100 mg PO DAILY
fluticasone propionate 50 mcg/actuation [place],Suspension
1 spray INTRANASAL BID
diazepam [Valium] 5 mg Tablet
5 mg PO HS
diazepam [Valium] 5 mg Tablet
2.5 mg PO DAILY
diazepam [Valium] 5 mg Tablet
5 mg PO BIDPRN PRN (Reason: spasms)
nebivolol [Bystolic] 5 mg Tablet
5 mg PO HS
nebivolol [Bystolic] 10 mg Tablet
10 mg PO DAILY
baclofen 5 mg Tablet
5 mg PO TID
spironolactone 25 mg Tablet
12.5 mg PO DAILY Qty: 0 0RF
quetiapine 25 mg Tablet
25 mg PO BID
acetaminophen [Tylenol] 325 mg Tablet
650 mg PO Q4HPRN PRN (Reason: mild pain/temp >100)
magnesium hydroxide [Milk of Magnesia] 400 mg/5 mL Suspension
30 ml PO [id number] PRN (Reason: no bm 3 days)
bisacodyl [Dulcolax (bisacodyl)] 10 mg Suppository
10 mg ID DAILYPRN PRN (Reason: if mom ineffect aftr 24 hrs)
Fleet Enema 19-7 gram/118 mL Enema
118 ml ID DAILYPRN PRN (Reason: if dulcolax ineffect aftr 24 hrs)
loratadine [Claritin] 10 mg Tablet
10 mg PO DAILY
pregabalin [Lyrica] 50 mg Capsule
50 mg PO BID
zinc oxide Paste
1 ea TOPICAL DAILY
white petrolatum-mineral oil 83-15 % Ointment
1 applic BOTH EYES HS
melatonin 5 mg Tablet
5 mg PO HS
Artificial Tears (PF) 0.1-0.3 % Dropperette
1 drp BOTH EYES QID
amlodipine 5 mg tablet
5 mg PO DAILY
Discharge Orders:
Discharge Patient (As Directed); Ordered 04/18/24
Ordered By: Thor Muniz
Discharge Date and Time
Discharge Date/Time: 04/18/24 18:30
Print Language: MOLDOVAN

Documented by User: Mal Castro MD 04/18/24 23:43
Discharge Summary
Discharge Data
Date of Admission: 04/13/24
Date of Discharge: 04/18/24
Discharge Plan
-
Patient Disposition: [facility]/SNF
Discharge Diagnosis/Procedures: Encephalopathy, likely toxic/vascular
Condition: Good
Diet: No restrictions
Activity: No restrictions
Driving Restrictions: As prior to admission
Bathing Restrictions: None
Referrals:
Raymond Eckert MD [Family Provider] - in one to two weeks
Maritza Garcia MD [Active] - in two to three weeks
Additional Discharge Medication Instructions: Patient should receive PT following discharge as he has deconditioned during his hospitalization.
Prescriptions:
Continued
amantadine HCl 50 mg/5 mL Solution
100 mg PO DAILY
polyethylene glycol 3350 [Miralax] 17 gram Powder In Packet
17 g PO DAILY
therapeutic multivitamin Tablet
1 tab PO DAILY
buspirone 10 mg Tablet
10 mg PO TID
nystatin 100,000 unit/gram Powder
1 applic TOPICAL BID
sertraline 20 mg/mL Concentrate
100 mg PO DAILY
fluticasone propionate 50 mcg/actuation [place],Suspension
1 spray INTRANASAL BID
diazepam [Valium] 5 mg Tablet
5 mg PO HS
diazepam [Valium] 5 mg Tablet
2.5 mg PO DAILY
diazepam [Valium] 5 mg Tablet
5 mg PO BIDPRN PRN (Reason: spasms)
nebivolol [Bystolic] 5 mg Tablet
5 mg PO HS
nebivolol [Bystolic] 10 mg Tablet
10 mg PO DAILY
baclofen 5 mg Tablet
5 mg PO TID
spironolactone 25 mg Tablet
12.5 mg PO DAILY Qty: 0 0RF
quetiapine 25 mg Tablet
25 mg PO BID
acetaminophen [Tylenol] 325 mg Tablet
650 mg PO Q4HPRN PRN (Reason: mild pain/temp >100)
magnesium hydroxide [Milk of Magnesia] 400 mg/5 mL Suspension
30 ml PO [id number] PRN (Reason: no bm 3 days)
bisacodyl [Dulcolax (bisacodyl)] 10 mg Suppository
10 mg ID DAILYPRN PRN (Reason: if mom ineffect aftr 24 hrs)
Fleet Enema 19-7 gram/118 mL Enema
118 ml ID DAILYPRN PRN (Reason: if dulcolax ineffect aftr 24 hrs)
loratadine [Claritin] 10 mg Tablet
10 mg PO DAILY
pregabalin [Lyrica] 50 mg Capsule
50 mg PO BID
zinc oxide Paste
1 ea TOPICAL DAILY
white petrolatum-mineral oil 83-15 % Ointment
1 applic BOTH EYES HS
melatonin 5 mg Tablet
5 mg PO HS
Artificial Tears (PF) 0.1-0.3 % Dropperette
1 drp BOTH EYES QID
amlodipine 5 mg tablet
5 mg PO DAILY
Discharge Orders:
Discharge Patient (As Directed); Ordered 04/18/24
Ordered By: Thor Muniz
Discharge Date and Time
Discharge Date/Time: 04/18/24 18:30
Print Language: MOLDOVAN
[2024-04-19 15:06] LABS: Vitamin B1, Whole Blood 151 nmol/L (70-180)
== END 2024-04-18 18:30 | DRG 91 ==
LOC: 2 NORTH 22:23
PROVIDERS: Physician Assistant Medical; ADMITTING PHYSICIAN Internal Medicine; ATTENDING PHYSICIAN Family Medicine; CONSULT PHYSICIAN Psychiatry & Neurology Neurology; EMERGENCY PHYSICIAN Emergency Medicine; FAMILY PHYSICIAN Family Medicine
DX: G92.8 Other toxic encephalopathy (principal); J69.0 Pneumonitis due to inhalation of food and vomit; R53.2 Functional quadriplegia; R47.01 Aphasia; D69.6 Thrombocytopenia, unspecified; F32.A Depression, unspecified; G31.9 Degenerative disease of nervous system, unspecified; I10 Essential (primary) hypertension; I69.265 Other paralytic syndrome following other nontraumatic intracranial hemorrhage, bilateral; R47.1 Dysarthria and anarthria; I69.291 Dysphagia following other nontraumatic intracranial hemorrhage; R13.10 Dysphagia, unspecified; I69.298 Other sequelae of other nontraumatic intracranial hemorrhage; N31.9 Neuromuscular dysfunction of bladder, unspecified; N32.89 Other specified disorders of bladder; H49.9 Unspecified paralytic strabismus; H55.00 Unspecified nystagmus; H54.7 Unspecified visual loss; H53.40 Unspecified visual field defects; J20.9 Acute bronchitis, unspecified; F41.9 Anxiety disorder, unspecified; M10.9 Gout, unspecified; Z86.79 Personal history of other diseases of the circulatory system; Z86.718 Personal history of other venous thrombosis and embolism
CPT/HCPCS: 51701; 70450; 70551; 71045; 80048; 80053; 80061; 80306; 80307; 81003; 82140; 82550; 83036; 84425; 84443; 85025; 85027; 86041; 87070; 87502; 87811; 92526; 92610; 93005; 94640; 94669; 96360; 97163; 97167; 97530; 99285

== ENCOUNTER 2024-05-14 17:25 | Emergency (ER) | payer OTHER, SELFPAY ==
[2024-05-14] VITALS (18 sets, daily range): BP systolic 91–138; BP diastolic 74–108; BMI 33.7
--- NOTE | 2024-05-14 17:50 | ED.GENMED ---
History of Present Illness
<LORI Tse - Last Filed: 05/15/24 01:14>
General
Chief Complaint: Dizziness
Source: patient
Exam Limitations: clinical condition
Time Seen by Provider: 05/14/24 17:37
Nursing documentation reviewed up to this point in time: agreed with
History of Present Illness
History of Present Illness:
Patient is a 38yo M w/ PMH of hemorrhagic stroke and cerebral infarct presents to ED w/ complaint of dizziness. He states sxs started before he came to ER, did not wake up with them today. He states he feels like he is having a seizure but is not in
any pain. He admits to feeling this sensation before but unclear when. He denies FRITZ, fever, chills, fatigue, chest pain, SOB, abd pain, and N/V.
Past History
<LORI Tse - Last Filed: 05/15/24 01:14>
Past History
ED Past Medical History: HTN and Other (Gout. Pontine bleed. DVT.)
ED Past Surgical History: Orthopedic and Other (Tracheostomy/PEG tube placement)
Social History
Tobacco: Non-smoker
Personal:
Living: assisted living
Employment: Disabled
Family History
Family History: Other (father has RA)
Review of Systems
<LORI Tse - Last Filed: 05/15/24 01:14>
Review of Systems
Constitutional: Denies fever, fatigue or chills
EENT: Denies sore throat or runny nose
Respiratory: Denies cough or trouble breathing
Cardiac: Denies chest pain or palpitations
ABD/GI: Denies abdominal pain, nausea, vomiting, diarrhea or constipated
Musculoskeletal: Reports muscle stiffness; Denies joint pain, muscle pain, edema or neck pain
Neurological: Reports dizzy; Denies headache
Phy Exam
<Cat Porter [facility] - Last Filed: 05/15/24 01:14>
General Physical Exam
General Presentation: moderate distress
General age: appears stated age
General Skin: warm and dry
General Habitus: normal
General Mental: alert
Cardiovascular Exam
Cardiovascular Exam: regular rate/rhythm, no edema, no gallop and no murmur
Pulmonary Exam
Pulmonary Exam: no respiratory distress, no rales, no crackles and no rhonchi
Breath Sounds: Wheeze: left upper and left lower
Gastrointestinal Exam
Gastrointestinal Exam: non tender, soft, no organomegaly and non distended
Neurological Exam
Neurological Exam: alert and oriented x3
Course
<Cat Porter [facility] - Last Filed: 05/15/24 01:14>
Orders/Labs/Results
Orders:
Orders
05/14/24 17:45
CMP [Comprehensive Metabolic Panel] Urgent
Complete Blood Count/With Diff Urgent
05/14/24 17:[address] [CT Head W/o Iv Contrast] Urgent
Comment:
Reason For Exam: nystagmus
CXR2 [CR Chest - 2 Views ] Urgent
Comment:
Reason For Exam: wheezing
Abnormal Lab Results
05/14/24
17:45
RDW 15.1 H %
(11.5-14.5)
Glucose 105 H mg/dl
(70-99)
Total Protein 8.5 H g/dl
(6.3-8.2)
05/14/24 17:45
05/14/24 17:45
Vital Signs
Initial and Last Documented VS:
Initial Vital Signs
Temp Pulse Resp BP Pulse Ox
98.0 F 56 16 130/108 94
05/14/24 17:30 05/14/24 17:30 05/14/24 17:30 05/14/24 17:30 05/14/24 17:30
Last Documented Vital Signs
Temp Pulse Resp BP Pulse Ox
98.0 F 52 12 122/78 95
05/14/24 17:30 05/15/24 01:00 05/15/24 01:00 05/15/24 01:00 05/15/24 01:00
<Joselo Ruiz, DO - Last Filed: 05/14/24 20:50>
Orders/Labs/Results
Orders:
Orders
05/14/24 17:45
CMP [Comprehensive Metabolic Panel] Urgent
Complete Blood Count/With Diff Urgent
05/14/24 17:[address] [CT Head W/o Iv Contrast] Urgent
Comment:
Reason For Exam: nystagmus
CXR2 [CR Chest - 2 Views ] Urgent
Comment:
Reason For Exam: wheezing
Abnormal Lab Results
05/14/24
17:45
RDW 15.1 H %
(11.5-14.5)
Glucose 105 H mg/dl
(70-99)
Total Protein 8.5 H g/dl
(6.3-8.2)
05/14/24 17:45
05/14/24 17:45
Vital Signs
Initial and Last Documented VS:
Initial Vital Signs
Temp Pulse Resp BP Pulse Ox
98.0 F 56 16 130/108 94
05/14/24 17:30 05/14/24 17:30 05/14/24 17:30 05/14/24 17:30 05/14/24 17:30
Last Documented Vital Signs
Temp Pulse Resp BP Pulse Ox
98.0 F 52 12 122/78 95
05/14/24 17:30 05/15/24 01:00 05/15/24 01:00 05/15/24 01:00 05/15/24 01:00
<LORI Tse - Last Filed: 05/15/24 01:14>
MDM/Problems Addressed
Differential Diagnosis Includes:
PNA, anxiety, panic attack
<LORI Tse - Last Filed: 05/15/24 01:14>
*Critical Care Note
Total Time (30-74mins, 75-104mins- exclusive of procedures): Not Applicable
<LORI Tse - Last Filed: 05/15/24 01:14>
Update Note
Update Note:
05/14/24 6:45 pm - Patient reports feeling somewhat better. He denies continued dizziness or seizure-like feeling. His reports he said it may have been a panic attack.
05/14/24 7:27 pm- Pt continues to endorse feeling better. He continues to deny dizziness, seizure-like feeling, and any new symptoms.
ED Attending Note
<LORI Tse - Last Filed: 05/15/24 01:14>
-
Portions of this chart may have been created with voice recognition software.� Occasional wrong word or��sound alike� substitutions may have occurred due to the inherent limitations of voice recognition software.
<Joselo Ruiz DO - Last Filed: 05/14/24 20:50>
ED Attending Note
Patient seen and examined by attending physician: Yes
I performed the substantive portion of visit, reviewed & personally made and approve the management plan that is documented in note by myself or JADA.: Yes
ED Attending Note:
This a pleasant 38-year-old male who presents with dizziness. Patient resides at [facility] after a hemorrhagic stroke in 2022. According to patient, long term records, and EMS reports, he was having a complaint of dizziness. His symptoms
started before coming to the emergency department. Patient reports no pain. He has had this sensation in the past. Patient reports no other symptoms at this time. Patient was seen in conjunction with the PA student. I have reviewed and agree
with the history and treatment plan presented. On my independent physical exam, patient is awake, alert, and at baseline mental status. He does have eye movements that according to mom are at baseline. She states that his speech though slurred is
baseline. She states that based on his neuro medications, his degree of slurring changes. Mom does feel that his mental status is at baseline right now. Heart is regular rate and rhythm. Lungs are clear to auscultation bilaterally. Skin is warm
and dry. Abdomen is soft nontender nondistended.
Reviewed lab work with mom, dad, patient, and . Discussed CT scan and x-ray findings.
Discharge Plan
Departure
Patient Disposition: Retirement/SNF
Date of Disposition: 05/14/24
Time of Disposition: 20:50
Discharge Problem:
Dizziness
Instructions: Dizziness, BLOOD PRESSURE
Prescriptions:
No Action
amantadine HCl 50 mg/5 mL Solution
100 mg PO DAILY
polyethylene glycol 3350 [Miralax] 17 gram Powder In Packet
17 g PO DAILY
therapeutic multivitamin Tablet
1 tab PO DAILY
buspirone 10 mg Tablet
10 mg PO TID
sertraline 20 mg/mL Concentrate
100 mg PO DAILY
fluticasone propionate 50 mcg/actuation [place],Suspension
1 spray INTRANASAL BID
diazepam [Valium] 5 mg Tablet
5 mg PO HS
diazepam [Valium] 5 mg Tablet
2.5 mg PO DAILY
diazepam [Valium] 5 mg Tablet
5 mg PO [id number] PRN (Reason: muscle spasms)
nebivolol [Bystolic] 5 mg Tablet
5 mg PO HS
nebivolol [Bystolic] 10 mg Tablet
10 mg PO DAILY
baclofen 5 mg Tablet
5 mg PO TID
spironolactone 25 mg Tablet
12.5 mg PO DAILY Qty: 0 0RF
quetiapine 25 mg Tablet
25 mg PO BID
acetaminophen [Tylenol] 325 mg Tablet
650 mg PO Q4HPRN MDD 3000 mg PRN (Reason: mild pain/temp >100)
magnesium hydroxide [Milk of Magnesia] 400 mg/5 mL Suspension
30 ml PO [id number] PRN (Reason: no bm 3 days)
bisacodyl [Dulcolax (bisacodyl)] 10 mg Suppository
10 mg SD DAILYPRN PRN (Reason: if mom ineffect aftr 24 hrs)
Fleet Enema 19-7 gram/118 mL Enema
118 ml SD DAILYPRN PRN (Reason: if dulcolax ineffect aftr 24 hrs)
loratadine [Claritin] 10 mg Tablet
10 mg PO DAILY
white petrolatum-mineral oil 83-15 % Ointment
1 applic BOTH EYES HS
melatonin 5 mg Tablet
5 mg PO HS
Artificial Tears (PF) 0.1-0.3 % Dropperette
1 drp BOTH EYES QID
amlodipine 5 mg tablet
5 mg PO DAILY
pregabalin 100 mg Capsule
100 mg PO BID
dextran 70-hypromellose (PF) 0.1-0.3 % Dropperette
1 drp BOTH EYES QID
Referrals:
Santos Rao I., DO [Family Provider] -
Activity Restrictions/Additional Instructions:
It was a pleasure meeting you and taking part in your care. We hope for your continued healing and wellness.
Please read discharge instructions in their entirety. However, they are for general education and may not describe your exact diagnosis at discharge. Information on your ER visit and medical conditions were discussed with you along with appropriate
follow up information...
If indicated, please take your medications as instructed and indicated on discharge paperwork.
Please schedule a follow up appointment as directed. Call to schedule an appointment
Please return to the emergency department with ANY change in, persisting, or worsening of symptoms. If any of your symptoms do not improve, or persist, or become more severe within 6-12 hours, please return to the emergency department for further
care.
Please return to the emergency department if you develop a headache, neck pain/stiffness, fever greater than 100.4F, chest pain, shortness of breath, persistent nausea, vomiting, slurred speech, difficulty walking, numbness/tingling, weakness, signs
of infection or any other symptoms that are worrisome to you.
If you have any questions or concerns please do not hesitate to call the Hospital at or E-mail me directly at [email or web address]
Interventions
Interventions:
*Risk Screen - Suicide Last Done: 05/14/24 17:30
*General Assessment Last Done: 05/14/24 17:30
*Neglect/Abuse Screening Last Done: 05/14/24 17:30
*ED COVID-19 Vaccine History Last Done: 05/14/24 17:30
ED- Neurological Assessment Last Done: 05/14/24 17:41
ED Swallowing Screen Last Done: 05/14/24 20:05
Discharge Date and Time
Print Language: ROMANIAN
[2024-05-14 17:52] LABS: % Basophils 0.5 % (0-2); % Eosinophils 4.2 % (0-6); % Immature Granulocytes 0.3 % (0-0.5); % Lymphocytes 24.6 % (20.5-51.1); % Monocytes 6.9 % (1.7-9.3); % Neutrophils 63.5 % (42.2-75.2); Absolute Eosinophils 0.3 10^3/uL (0-0.7); Absolute Monocytes 0.6 10^3/uL (0.1-0.6); Absolute Neutrophils 5.1 10^3/uL (1.4-6.5); Hematocrit 43.6 % (39.0-52.0); Hemoglobin 14.8 g/dL (13.0-18.0); Mean Corp Hgb Conc. 33.9 g/dL (33.0-37.0); Mean Corpuscular Hgb 27.6 pg (27.0-31.0); Mean Corpuscular Volume 81.3 fL (80.0-94.0); Mean Platelet Volume 9.8 fL (7.4-10.4); Nucleated Red Blood Cells % 0 % (-); Platelet Count 212 10^3/uL (130-400); Red Blood Cell Count 5.36 10^6/uL (4.70-6.10); Red Cell Dist. Width 15.1 % (11.5-14.5); White Blood Cell Count 7.9 10^3/uL (4.8-10.8)
[2024-05-14 18:12] LABS: ALT (SGPT) 22 U/L (0-50); AST (SGOT) 20 U/L (17-59); Albumin 4.8 g/dl (3.5-5.0); Alkaline Phosphatase 99 U/L (38-126); Blood Urea Nitrogen 17 mg/dl (9-20); Calcium 9.9 mg/dl (8.4-10.2); Carbon Dioxide 26 mmol/L (22-30); Chloride 100 mmol/L (98-107); Estimated Creatinine Clearance > 125 ml/min; Glucose 105 mg/dl (70-99); Potassium 4.4 mmol/L (3.5-5.1); Sodium 142 mmol/L (135-145); Total Bilirubin 0.6 mg/dl (0.2-1.3); Total Protein 8.5 g/dl (6.3-8.2); eGFR > 60.00
[2024-05-15] VITALS: BP 128/88
[2024-05-15 00:20] VITALS: BP 132/99
[2024-05-15 00:40] VITALS: BP 117/80
[2024-05-15 01:00] VITALS: BP 122/78
== END 2024-05-15 01:12 ==
LOC: EMR 17:25
PROVIDERS: EMERGENCY PHYSICIAN Student in an Organized Health Care Education/Training Program; FAMILY PHYSICIAN Internal Medicine
DX: R42 Dizziness and giddiness (principal); I10 Essential (primary) hypertension; Z86.718 Personal history of other venous thrombosis and embolism; Z86.73 Personal history of transient ischemic attack (TIA), and cerebral infarction without residual deficits
CPT/HCPCS: 99284; 70450; 71046; 80053; 85025; 93005

== ENCOUNTER 2024-07-20 14:34 | Emergency (ER) | payer OTHER, SELFPAY ==
[2024-07-20 14:36] VITALS: BMI 33.6
[2024-07-20 14:43] VITALS: BP 147/89
[2024-07-20 15:00] VITALS: BP 106/94
--- NOTE | 2024-07-20 15:03 | ED.GENMED ---
History of Present Illness
<Stanton Trujillo DO - Last Filed: 07/20/24 15:33>
General
Chief Complaint: Breathing Problem
Time Seen by Provider: 07/20/24 14:46
<Sheryl Arenas PA-C - Last Filed: 07/20/24 23:02>
General
Source: patient and [facility] (I personally called and spoke with liability claims manager)
Exam Limitations: none
Nursing documentation reviewed up to this point in time: agreed with
History of Present Illness
History of Present Illness:
Patient is 38 year old male with hx CVA, HTN, anxiety presenting to the emergency department for evaluation. Per nursing facility�patient seemed agitated this morning. He also had elevated blood pressure. There is no known fever, cough, trauma.
They state he was refusing liquids. Per nursing staff facility�there is a flu outbreak. It appears patient is currently on Tamiflu for preventative measures. Apparently patient is scheduled for surgery at the end of July to improve his
'extraocular muscles '.
Patient denies any current headache, chest pain, shortness of breath, abdominal pain. No chest pain or cough. No urinary symptoms. There are some limitations to his history given history of intracranial hemorrhage.
Did speak to patient's family at bedside who state that he seems about his baseline. They are concerned he may be mildly dehydrated. However�they state his mental status is baseline and his nystagmus is baseline.
Past History
<Sheryl Arenas PA-C - Last Filed: 07/20/24 23:02>
Past History
ED Past Medical History: HTN and Other (Gout. [place] bleed. DVT.)
ED Past Surgical History: Orthopedic and Other (Tracheostomy/PEG tube placement)
Social History
Tobacco: Non-smoker
Personal:
Living: assisted living
Employment: Disabled
Family History
Family History: Other (father has RA)
Review of Systems
<Sheryl Arenas PA-C - Last Filed: 07/20/24 23:02>
Review of Systems
Allergies reviewed?: Yes
All Other Systems: ROS reviewed and negative except as documented in HPI and ROS
Phy Exam
<Sheryl Arenas PA-C - Last Filed: 07/20/24 23:02>
Physical Exam
Physical Exam:
Vitals: Mildly hypertensive and tachycardic. Afebrile. Not hypoxic
General: Patient is in no acute distress
Skin: Warm and dry, no rashes or lesions
Head: Normocephalic, atraumatic
Eyes: Sclera nonicteric. Vertical nystagmus.
Throat: Protecting airway
Neck: Normal ROM, no cervical spine tenderness, no meningismus
Cardiac: Tachycardic, normal
Pulm: No apparent respiratory distress. Lungs clear with no wheeze. Oxygen saturation 95 on room air
Abdomen: Abdomen soft. No abdominal tenderness.
Extremities: No evidence of cyanosis or edema. Moving all extremities
Neuro: AAO. Garbled speech (chronic per patient).
Psychiatric: Normal affect.
Course
<Stanton Trujillo, DO - Last Filed: 07/20/24 15:33>
Orders/Labs/Results
Orders:
Orders
07/20/24 14:48
EKG [Electrocardiogram (*1)] Urgent
Reason for Study: Tachycardia
07/20/24 14:49
EKG- Treatment ONCE
07/20/24 14:51
CBC/With Diff [Complete Blood Count/With Diff] Urgent
CMP [Comprehensive Metabolic Panel] Urgent
COVID-19 Antigen Urgent
Source: Nasal Swab
Influenza A+B Rapid Molecular Urgent
GERARDO Source: Nasal Swab
Specimen Description:
07/20/24 15:16
CR Chest Single View Urgent
Reason For Exam: cough/ COMPROMISED PT CANNOT MOVE ARMS FOR LATERAL
07/20/24 15:21
0.9% Sodium Chloride 1000 ml [Nss] 1,000 ml IV BOLUS
07/20/24 15:27
Diphenhydramine [Benadryl] 50 mg IV NOW STA
07/20/24 15:28
CT Head W/o Iv Contrast Urgent
Comment:
Reason For Exam: Altered mental status
07/20/24 17:14
Troponin I Urgent
Abnormal Lab Results
07/20/24
14:51
WBC 12.0 H 10^3/uL
(4.8-10.8)
RDW 15.1 H %
(11.5-14.5)
MPV 10.9 H fL
(7.4-10.4)
Absolute Neuts (auto) 11.1 H 10^3/uL
(1.4-6.5)
Absolute Lymphs (auto) 0.3 L 10^3/uL
(1.2-3.4)
Neutrophils % 92.4 H %
(42.2-75.2)
Lymphocytes % 2.7 L %
(20.5-51.1)
Carbon Dioxide 20 L mmol/L
(22-30)
BUN 22 H mg/dl
(9-20)
Glucose 115 H mg/dl
(70-99)
Alkaline Phosphatase 131 H U/L
(38-126)
Total Protein 9.1 H g/dl
(6.3-8.2)
Albumin 5.1 H g/dl
(3.5-5.0)
07/20/24 14:51
07/20/24 14:51
Vital Signs
Initial and Last Documented VS:
Initial Vital Signs
Pulse Ox
91
07/20/24 14:39
Last Documented Vital Signs
Temp Pulse Resp BP Pulse Ox
98.1 F 105 23 122/87 94
07/20/24 14:47 07/20/24 17:15 07/20/24 17:15 07/20/24 17:00 07/20/24 17:00
<Sheryl Arenas PA-C - Last Filed: 07/20/24 23:02>
Orders/Labs/Results
Orders:
Orders
07/20/24 14:48
EKG [Electrocardiogram (*1)] Urgent
Reason for Study: Tachycardia
07/20/24 14:49
EKG- Treatment ONCE
07/20/24 14:51
CBC/With Diff [Complete Blood Count/With Diff] Urgent
CMP [Comprehensive Metabolic Panel] Urgent
COVID-19 Antigen Urgent
Source: Nasal Swab
Influenza A+B Rapid Molecular Urgent
GERARDO Source: Nasal Swab
Specimen Description:
07/20/24 15:16
CR Chest Single View Urgent
Reason For Exam: cough/ COMPROMISED PT CANNOT MOVE ARMS FOR LATERAL
07/20/24 15:21
0.9% Sodium Chloride 1000 ml [Nss] 1,000 ml IV BOLUS
07/20/24 15:27
Diphenhydramine [Benadryl] 50 mg IV NOW STA
07/20/24 15:28
CT Head W/o Iv Contrast Urgent
Comment:
Reason For Exam: Altered mental status
07/20/24 17:14
Troponin I Urgent
Abnormal Lab Results
07/20/24
14:51
WBC 12.0 H 10^3/uL
(4.8-10.8)
RDW 15.1 H %
(11.5-14.5)
MPV 10.9 H fL
(7.4-10.4)
Absolute Neuts (auto) 11.1 H 10^3/uL
(1.4-6.5)
Absolute Lymphs (auto) 0.3 L 10^3/uL
(1.2-3.4)
Neutrophils % 92.4 H %
(42.2-75.2)
Lymphocytes % 2.7 L %
(20.5-51.1)
Carbon Dioxide 20 L mmol/L
(22-30)
BUN 22 H mg/dl
(9-20)
Glucose 115 H mg/dl
(70-99)
Alkaline Phosphatase 131 H U/L
(38-126)
Total Protein 9.1 H g/dl
(6.3-8.2)
Albumin 5.1 H g/dl
(3.5-5.0)
07/20/24 14:51
07/20/24 14:51
Vital Signs
Initial and Last Documented VS:
Initial Vital Signs
Pulse Ox
91
07/20/24 14:39
Last Documented Vital Signs
Temp Pulse Resp BP Pulse Ox
98.1 F 105 23 122/87 94
07/20/24 14:47 07/20/24 17:15 07/20/24 17:15 07/20/24 17:00 07/20/24 17:00
<Sheryl Arenas PA-C - Last Filed: 07/20/24 23:02>
MDM/Problems Addressed
Differential Diagnosis Includes:
Not limited to: Viral illness, dehydration, cardiac arrhythmia, pneumonia, bronchitis, dystonic drug reaction, etc.
MDM/Problems Addressed:
38-year-old male presenting from nursing facility with increased levels of agitation. Mildly hypertensive although resolved by my examination. He is not hypoxic or febrile. On exam�patient is alert and oriented. He does have garbled speech which
appears chronic for patient. He does follow commands and answer questions. Cardio/pulmonary assessment unremarkable. Mildly dry mucous membranes. Vertical nystagmus noted and while reportedly baseline per patient it does appear that it may be
slightly exacerbated from his normal. Concern for possible dystonic reaction given use of Seroquel. Will give IV Benadryl and reassess. Will check basic labs, chest x-ray to rule out possible pneumonia. Will check viral swabs. Will check head
CT given vertical nystagmus and history of CVA. Will give IV fluids.
Update: Viral swabs labs noted. Very mild leukocytosis. Otherwise no clinically significant abnormalities. Troponin undetectable. On reassessment�patient does appear mildly improved following Benadryl and definitely less agitated. It is
possible that there was a mild dystonic reaction from Seroquel. Chest x-ray reviewed by myself and attending which shows no evidence of pneumonia or pleural effusion. Head CT without any acute abnormalities. Patient without any current complaints
and family state he appears at his baseline. He has received a liter of IV fluids. No indication for admission at this time. Vital signs stable. He is normotensive. Patient stable for discharge back to facility with close return precautions.
Will advise close review of medications to consider possible adjustments to Seroquel given possible dystonic reaction today. Patient seen with attending physician
Chronic conditions affecting care:
CVA, hypertension
Acute Exacerbation and/or Progression of Chronic Illness:
Acutely hypertensive
<Sheryl Arenas PA-C - Last Filed: 07/20/24 23:02>
*Radiology
Radiology exam reviewed: preliminary read by ED provider (Chest x-ray reviewed by mi-no pneumonia or pleural effusion) and radiology read reviewed (Head CT without any acute abnormalities)
*Pulse Oximetry
Patient hypoxic: no
*EKG
Interpreted by ED Provider?: Yes
EKG Intrepretation Date: 07/20/24
Interpretation: abnormal
Comparison EKG: changes noted
Heart Rate: 91
Rate: normal
Rhythm: sinus
[facility]: normal axis
Interval: normal QT interval
QRS Pattern: left vent hypertrophy
Ischemia: non-specific ST changes
*Rn Cardiovascular Icu Interpretation
Rate: tachycardiac
Interpretation: normal
Heart Rate: 103
Rhythm: sinus
*Critical Care Note
Total Time (30-74mins, 75-104mins- exclusive of procedures): Not Applicable
ED Attending Note
<Stanton Trujillo DO - Last Filed: 07/20/24 15:33>
ED Attending Note
Patient seen and examined by attending physician: Yes
I performed the substantive portion of visit, reviewed & personally made and approve the management plan that is documented in note by myself or JADA.: Yes
ED Attending Note:
I have seen and evaluated the patient with a [id number] encounter. I have spoken to the advance practicer provider and involved in the medical history, the physical exam, medical decision making.
Evaluation and management service: agree unless noted differently below.
Results interpretation: agree unless noted differently below.
Focused HPI: 38-year-old male presenting from the nursing facility for evaluation of agitation. He was initially triaged as flulike symptoms but patient states that he feels 'off'. Patient is found to have vertical nystagmus. He states this is
somewhat normal for him but states that his [id number] and unusually intense. Patient has limitations in his history skills given his prior intracranial hemorrhage.
Physical exam: Vertical nystagmus, pupils equal reactive. Garbled speech but normal per patient
Medical Decision Making: PA did call the facility and indicated that this is somewhat normal behavior for him. Looking at his medical profile, it is possible that his Seroquel is causing a dystonic reaction. Will give IV Benadryl and see if this
helps with his symptoms. Otherwise, will obtain basic blood work and CT head given his prior history
<Sheryl Arenas PA-C - Last Filed: 07/20/24 23:02>
-
Portions of this chart may have been created with voice recognition software.� Occasional wrong word or��sound alike� substitutions may have occurred due to the inherent limitations of voice recognition software.
Discharge Plan
Departure
Patient Disposition: Home (Routine Discharge)
Date of Disposition: 07/20/24
Time of Disposition: 19:15
Patient with high blood pressure during this ER visit?: Yes
Condition: Good
Covid-19: Negative COVID-19
Discharge Problem:
Dystonic drug reaction
Instructions: BLOOD PRESSURE
Prescriptions:
No Action
amantadine HCl 50 mg/5 mL Solution
100 mg PO DAILY
polyethylene glycol 3350 [Miralax] 17 gram Powder In Packet
17 g PO DAILY
therapeutic multivitamin Tablet
1 tab PO DAILY
buspirone 10 mg Tablet
10 mg PO TID
sertraline 20 mg/mL Concentrate
100 mg PO DAILY
fluticasone propionate 50 mcg/actuation [place],Suspension
1 spray INTRANASAL BID
diazepam [Valium] 5 mg Tablet
5 mg PO HS
diazepam [Valium] 5 mg Tablet
2.5 mg PO DAILY
diazepam [Valium] 5 mg Tablet
5 mg PO [id number] PRN (Reason: muscle spasms)
nebivolol [Bystolic] 5 mg Tablet
5 mg PO HS
nebivolol [Bystolic] 10 mg Tablet
10 mg PO DAILY
baclofen 5 mg Tablet
5 mg PO TID
spironolactone 25 mg Tablet
12.5 mg PO DAILY Qty: 0 0RF
quetiapine 25 mg Tablet
25 mg PO BID
acetaminophen [Tylenol] 325 mg Tablet
650 mg PO Q4HPRN MDD 3000 mg PRN (Reason: mild pain/temp >100)
magnesium hydroxide [Milk of Magnesia] 400 mg/5 mL Suspension
30 ml PO [id number] PRN (Reason: no bm 3 days)
bisacodyl [Dulcolax (bisacodyl)] 10 mg Suppository
10 mg MN DAILYPRN PRN (Reason: if mom ineffect aftr 24 hrs)
Fleet Enema 19-7 gram/118 mL Enema
118 ml MN DAILYPRN PRN (Reason: if dulcolax ineffect aftr 24 hrs)
loratadine [Claritin] 10 mg Tablet
10 mg PO DAILY
white petrolatum-mineral oil 83-15 % Ointment
1 applic BOTH EYES HS
melatonin 5 mg Tablet
5 mg PO HS
Artificial Tears (PF) 0.1-0.3 % Dropperette
1 drp BOTH EYES QID
amlodipine 5 mg tablet
5 mg PO DAILY
pregabalin 100 mg Capsule
100 mg PO BID
dextran 70-hypromellose (PF) 0.1-0.3 % Dropperette
1 drp BOTH EYES QID
Referrals:
Santos Rao I., DO [Family Provider] - Follow up in 2-3 days
Activity Restrictions/Additional Instructions:
- Return to the emergency department with any chest pain, shortness of breath, severe headache, changes in mental status, worsening of current symptoms, or any other concerns
-As discussed/your head CT showed no acute abnormalities today. It is possible that your symptoms are related to a dystonic reaction from one of your medications. Your chest x-ray showed no acute abnormalities.
-You should have your medications reviewed closely by your primary care to ensure that no adjustments need to be made. For the time being continue to take medications as prescribed
-Is important stay well-hydrated.
Monitor your symptoms closely return to the emergency department with any acute worsening/new symptoms or any other concerns
Interventions
Interventions:
*General Assessment Last Done: 07/20/24 14:36
*Neglect/Abuse Screening Last Done: 07/20/24 14:36
ED- Fall Risk Assessment Last Done: 07/20/24 14:52
*Nursing Disposition Last Done: 07/20/24 20:50
ED- Cardiac Assessment Last Done: 07/20/24 14:48
ED- Pulmonary Assessment Last Done: 07/20/24 14:52
Discharge Date and Time
Discharge Date/Time: 07/20/24 20:51
Print Language: PUERTO RICAN
[2024-07-20 15:14] LABS: COVID-19 Antigen Negative (Negative)
[2024-07-20 16:00] VITALS: BP 119/94
[2024-07-20] MEDS: BENADRYL 50 MG IV (16:12)
[2024-07-20] MEDS: NSS 1000 IV (16:12)
[2024-07-20 16:22] LABS: % Basophils 0.3 % (0-2); % Eosinophils 1.1 % (0-6); % Immature Granulocytes 0.3 % (0-0.5); % Lymphocytes 2.7 % (20.5-51.1); % Monocytes 3.2 % (1.7-9.3); % Neutrophils 92.4 % (42.2-75.2); Absolute Eosinophils 0.1 10^3/uL (0-0.7); Absolute Lymphocytes 0.3 10^3/uL (1.2-3.4); Absolute Monocytes 0.4 10^3/uL (0.1-0.6); Absolute Neutrophils 11.1 10^3/uL (1.4-6.5); Hematocrit 48.8 % (39.0-52.0); Hemoglobin 16.3 g/dL (13.0-18.0); Mean Corp Hgb Conc. 33.4 g/dL (33.0-37.0); Mean Corpuscular Hgb 28.2 pg (27.0-31.0); Mean Corpuscular Volume 84.3 fL (80.0-94.0); Mean Platelet Volume 10.9 fL (7.4-10.4); Nucleated Red Blood Cells % 0 % (-); Platelet Count 197 10^3/uL (130-400); Red Blood Cell Count 5.79 10^6/uL (4.70-6.10); Red Cell Dist. Width 15.1 % (11.5-14.5)
[2024-07-20 16:38] LABS: ALT (SGPT) 23 U/L (0-50); AST (SGOT) 27 U/L (17-59); Albumin 5.1 g/dl (3.5-5.0); Alkaline Phosphatase 131 U/L (38-126); Blood Urea Nitrogen 22 mg/dl (9-20); Calcium 9.7 mg/dl (8.4-10.2); Carbon Dioxide 20 mmol/L (22-30); Chloride 103 mmol/L (98-107); Estimated Creatinine Clearance > 125 ml/min; Glucose 115 mg/dl (70-99); Potassium 4.9 mmol/L (3.5-5.1); Sodium 139 mmol/L (135-145); Total Bilirubin 1.2 mg/dl (0.2-1.3); Total Protein 9.1 g/dl (6.3-8.2); eGFR > 60.00
[2024-07-20 17:00] VITALS: BP 122/87
[2024-07-20 17:53] LABS: Troponin I < 0.012 ng/ml
== END 2024-07-20 20:51 | disposition home or self-care (01) ==
LOC: EMR 14:34
PROVIDERS: Physician Assistant; EMERGENCY PHYSICIAN Student in an Organized Health Care Education/Training Program; FAMILY PHYSICIAN Internal Medicine
DX: G24.09 Other drug induced dystonia (principal); R45.1 Restlessness and agitation; H55.00 Unspecified nystagmus; I10 Essential (primary) hypertension; F41.9 Anxiety disorder, unspecified; M10.9 Gout, unspecified; Z86.718 Personal history of other venous thrombosis and embolism; Z86.73 Personal history of transient ischemic attack (TIA), and cerebral infarction without residual deficits; Z88.8 Allergy status to other drugs, medicaments and biological substances; Z11.52 Encounter for screening for COVID-19; Z87.891 Personal history of nicotine dependence; F32.A Depression, unspecified; N31.9 Neuromuscular dysfunction of bladder, unspecified
CPT/HCPCS: 99285; 96374; 96361; 70450; 71045; 80053; 84484; 85025; 87502; 87811; 93005

== ENCOUNTER 2024-09-01 17:29 | Inpatient (IN) | payer OTHER, SELFPAY ==
[2024-09-01] VITALS (20 sets, daily range): BP systolic 97–138; BP diastolic 60–92
[2024-09-01] MEDS: KEPPRA 2000 MG IV (14:19)
--- NOTE | 2024-09-01 14:23 | ED.GENMED ---
History of Present Illness
General
Chief Complaint: Seizure
Source: patient and ambulance crew
Exam Limitations: clinical condition
Time Seen by Provider: 09/01/24 14:12
Nursing documentation reviewed up to this point in time: agreed with
History of Present Illness
History of Present Illness:
The patient is a 38-year-old man with a past medical history of hemorrhagic stroke who arrives from a intermediate after staff experienced him to be having seizure-like activity. Is unclear if he has a history of seizures, however, when I reviewed
the medication list, I do not see any antiepileptics listed. Patient arrives unresponsive with twitching of the muscles of his frontal scalp. Decision made to give him 2 mg of Ativan for likely seizure activity. Patient could not offer any
history. Patient given diazepam prior to arrival by paramedics. No history of recent trauma or acute illness.
Past History
Past History
ED Past Medical History: HTN and Other (Gout. DVT, brain hemorrhage from hypertension)
ED Past Surgical History: Orthopedic and Other (Tracheostomy/PEG tube placement)
Social History
Tobacco: Non-smoker
Alcohol: None
Drug: None
Personal:
Living: assisted living
Employment: Disabled
Family History
Family History: Other (father has RA)
Review of Systems
Review of Systems
Allergies reviewed?: Yes
Unable to obtain full review of systems at this time due to: due to acuity
Other source history: ambulance crew
Phy Exam
Physical Exam
Physical Exam:
Physical Exam
General: Patient appears stiff, unresponsive and twitching of forehead and facial muscles
Neck: supple. Spontaneously breathing
Heart: Appears well-perfused
Lungs: Breathing spontaneously
Abdomen: Soft
Neuro: Unresponsive
Skin: no rash
Psychiatric: well kept.
Extremities: Trace edema in legs
Course
Orders/Labs/Results
Orders:
Orders
09/01/24 14:12
Levetiracetam Injectable [Keppra] 2,000 mg IV NOW STA
09/01/24 14:14
Electrocardiogram (*1) Urgent
Reason for Study: Vertigo / Dizzy
EKG- Treatment ONCE
09/01/24 14:15
Basic Metabolic Panel Urgent
Complete Blood Count/With Diff Urgent
09/01/24 14:18
EEG Routine Stat
Reason for Exam: seizure
09/01/24 14:21
Electrocardiogram (*1) Urgent
Reason for Study: TIA/Stroke
EKG- Treatment ONCE
09/01/24 14:22
CT Head W/o Iv Contrast Urgent
Comment:
Reason For Exam: prolonged seizure
Consult Neurology [NEUROLOGY CONSULT] Urgent
Consulting Provider: Carlos Betancourt
Was physician already notified: Yes
Reason for consult: prolonged seizure
09/01/24 14:27
Lorazepam [Ativan] 2 mg IV NOW STA
09/01/24 16:37
Potassium Stat
09/01/24 16:44
MR Brain W/o & With Contrast Routine
Comment:
Reason For Exam: seizure
Recent pill cam endoscopy?: No
09/01/24 16:47
Admit/Transfer Patient As Directed
Co-Sign Provider:
Level of Care: Inpatient admission
Assign to:: Telemetry
Physician / Group: Joe Salmon
Diagnosis: seizure
Reason for Telemetry: Arrhythmia
Date to Stop Telemetry: 09/04/24
Time to Stop Telemetry: 11:00
Reason for Hospitalization: seizure
Expected length of stay greater than two midnights?: Yes
ELOS- Estimated Length of Stay in days: 3
I certify the patient meets the requirements for IP care: Yes
PRN Pain Medication Management As Directed
May give lesser potent ordered pain med per pt: Yes
preference::
Protocol:: Medication orders for pain may be administered in a
manner that supports deferring to patient preference
when the pt is:
- Requesting an ordered lesser potent pain medication.
Least to most potent pain medications are defined
as: acetaminophen < NSAID < tramadol < opioids
(morphine, oxycodone, hydromorphone).
- Requesting a lesser dose of the same medication IF
ORDERED.
- Requesting a less intrusive route of administration
if both routes are prescribed by the provider (PO <
IV).
09/01/24 16:50
Code Status As Directed
Resuscitation Status: Full Code
09/01/24 19:26
0.9% Sodium Chloride 1000 ml [Nss] 1,000 ml IV 100 mls/hr
Acetaminophen [Tylenol] 650 mg PO Q4HPRN PRN
Diazepam [Valium] 5 mg PO [id number] PRN
Lorazepam [Ativan] 1 mg IV Q4HPRN PRN
dextran 70-hypromellose (PF) 1 drop BOTH EYES QID
dextran 70-hypromellose (PF) [Artificial Tears (PF)] 1 drop BOTH EYES QID
09/01/24 19:26
Activity As Directed
Activity Level: With Assistance
Sequential Compression Device [Pneumatic Compression Sleeves] As Directed
Type: Knee high
Vital Signs As Directed
Frequency: Per unit guidelines
Weight As Directed
Frequency: Once
Ot Eval And Treat Routine
Pt Eval And Treat Routine
Activity Level: With Assistance
Speech Therapy Eval & Treat Routine
DX Deep Vein Thrombosis Video Routine
09/01/24 20:00
Levetiracetam [Keppra] 500 mg TUBE BID
Pregabalin [Lyrica] 75 mg PO BID
Quetiapine Fumarate [Seroquel] 25 mg PO BID
fluticasone propionate 1 spray NASAL BID
09/01/24 22:00
Baclofen [Lioresal] 5 mg PO TID
Buspirone [Buspar] 10 mg PO TID
Diazepam [Valium] 5 mg PO HS
Melatonin 5 mg PO HS
Nebivolol HCl [Bystolic] 5 mg PO HS
white petrolatum-mineral oil 1 applic BOTH EYES HS
09/02/24 06:00
Basic Metabolic Panel IN AM
Complete Blood Count/No Diff IN AM
09/02/24 08:00
Amantadine [Symmetrel] 100 mg PO DAILY
Amlodipine [Norvasc] 5 mg PO DAILY
Diazepam [Valium] 2.5 mg PO DAILY
Loratadine [Claritin] 10 mg PO DAILY
Multivitamin [Theragran] 1 tablet PO DAILY
Nebivolol HCl [Bystolic] 10 mg PO DAILY
Sertraline HCl [Zoloft] 100 mg PO DAILY
Spironolactone [Aldactone] 12.5 mg PO DAILY
09/04/24 11:00
DC Protocol for Telemetry ONCE
Abnormal Lab Results
09/01/24
14:15
RDW 15.1 H %
(11.5-14.5)
Abs Immat Gran (auto) 0.1 H 10^3/uL
(0-0.05)
Absolute Neuts (auto) 6.9 H 10^3/uL
(1.4-6.5)
Lymphocytes % 17.1 L %
(20.5-51.1)
BUN 8 L mg/dl
(9-20)
Creatinine 0.6 L mg/dL
(0.7-1.3)
Glucose 140 H mg/dl
(70-99)
09/01/24 14:15
09/01/24 16:37
Vital Signs
Initial and Last Documented VS:
Initial Vital Signs
BP
117/84
09/01/24 14:09
Last Documented Vital Signs
Temp Pulse Resp BP Pulse Ox
97.3 F 55 20 138/73 94
09/01/24 18:59 09/01/24 18:59 09/01/24 18:59 09/01/24 18:59 09/01/24 18:59
MDM/Problems Addressed
Differential Diagnosis Includes:
Status epilepticus, acute complex seizure, hyponatremia, intracranial bleed,
MDM/Problems Addressed:
Patient presents with acute seizure activity
Chronic conditions affecting care:
Prior hemorrhagic stroke
*Radiology
Radiology exam reviewed: radiology read reviewed
*Pulse Oximetry
Patient hypoxic: no
*EKG
Interpreted by ED Provider?: Yes
Interpretation: normal
Comparison EKG: changes noted (Now normal sinus rhythm)
Rate: normal
Rhythm: sinus
[place]: normal axis
Interval: normal interval
QRS Pattern: normal QRS
Ischemia: no ischemia
*Saddle Stitching Machine Operator Interpretation
Rate: normal
Interpretation: normal
Rhythm: sinus
*Critical Care Note
Total Time (30-74mins, 75-104mins- exclusive of procedures): 45 minutes
comment:
45 minutes of critical care given to the patient including frequent reassessments of his mental status, respiratory effort, reviewing his lab work, CT report, speaking to the hospitalist and neurologist
Data Reviewed
Review of Other/Old Records Reveals: Discharge Summary (Discharge summary reviewed from April 2024 when patient was admitted for encephalopathy)
Source: ambulance crew
Patient Management
Social determinants of health affecting care: Living situation and Strong social support
Discussion with other providers: Other (Dr. Carlos Betancourt asked to see the patient in the ED and I also asked for an EEG to be done.)
Escalation/DeEscalation of care consider admission/obs:
Given patient's prolonged seizure activity and him postictal at this time, decision made to admit the patient to further investigate this seizure activity and to make sure that he does not further active seizure activity
Update Note
Update Note:
Patient able to answer simple commands and move all extremities equal
ED Attending Note
-
Portions of this chart may have been created with voice recognition software.� Occasional wrong word or��sound alike� substitutions may have occurred due to the inherent limitations of voice recognition software.
Discharge Plan
Departure
Patient Disposition: Admit
Date of Disposition: 09/01/24
Time of Disposition: 15:46
Admit to: Telemetry
Presentation/result/management discussed w/ accepting MD/DO: Hospitalist
Patient with high blood pressure during this ER visit?: No
Condition: Fair
Covid-19: Not Applicable
Discharge Problem:
Prolonged seizure
Interventions
Interventions:
*Risk Screen - Suicide Last Done: 09/01/24 14:12
*General Assessment Last Done: 09/01/24 14:12
*Neglect/Abuse Screening Last Done: 09/01/24 14:12
ED- Fall Risk Assessment Last Done: 09/01/24 14:44
*ED COVID-19 Vaccine History Last Done: 09/01/24 14:12
*Nursing Disposition Last Done: 09/01/24 18:35
ED- Cardiac Assessment Last Done: 09/01/24 14:45
ED- Neurological Assessment Last Done: 09/01/24 14:29
Discharge Date and Time
Discharge Date/Time: 09/01/24 18:36
[2024-09-01 14:24] LABS: % Basophils 0.4 % (0-2); % Immature Granulocytes 0.5 % (0-0.5); % Lymphocytes 17.1 % (20.5-51.1); % Monocytes 4.5 % (1.7-9.3); % Neutrophils 73.5 % (42.2-75.2); Absolute Eosinophils 0.4 10^3/uL (0-0.7); Absolute Immature Granulocytes 0.1 10^3/uL (0-0.05); Absolute Lymphocytes 1.6 10^3/uL (1.2-3.4); Absolute Monocytes 0.4 10^3/uL (0.1-0.6); Absolute Neutrophils 6.9 10^3/uL (1.4-6.5); Hematocrit 44.8 % (39.0-52.0); Hemoglobin 15.2 g/dL (13.0-18.0); Mean Corp Hgb Conc. 33.9 g/dL (33.0-37.0); Mean Corpuscular Hgb 28.9 pg (27.0-31.0); Mean Corpuscular Volume 85.2 fL (80.0-94.0); Mean Platelet Volume 10.1 fL (7.4-10.4); Nucleated Red Blood Cells % 0 % (-); Platelet Count 209 10^3/uL (130-400); Red Blood Cell Count 5.26 10^6/uL (4.70-6.10); Red Cell Dist. Width 15.1 % (11.5-14.5); White Blood Cell Count 9.4 10^3/uL (4.8-10.8)
[2024-09-01] MEDS: ATIVAN 2 MG IV (14:27)
[2024-09-01 14:57] LABS: Blood Urea Nitrogen 8 mg/dl (9-20); Calcium 9.3 mg/dl (8.4-10.2); Carbon Dioxide 25 mmol/L (22-30); Chloride 100 mmol/L (98-107); Estimated Creatinine Clearance > 125 ml/min; Glucose 140 mg/dl (70-99); Sodium 138 mmol/L (135-145); eGFR > 60.00
--- NOTE | 2024-09-01 16:08 | EEG.RPT ---
Electroencephalogram Report
Recording
Date of EE09/01/24
Type of EEG: Routine
Length of EEG recordin mins
Done with Video Recording: No
Patient Status: Emergency Room
Recording Conditions: Awake
Hyperventilation Performed: No
Photic Stimulation Performed: Yes
Report
History: He is a 38 year old man with a history of brain injury, coming from residential after prolonged seizure activity.
Background: Continuous generalized slowing, polymorphic theta, symmetric and reactive. moderate amplitude generalized beta activity.
Sleep: some sleep spindles are seen
Focal/rhythmic/epileptiform: none
Seizures: none
Photic stim: no background change
Impression: generalized beta activity
Clinical Correlation: likely medication effect of benzodiazepines.
--- NOTE | 2024-09-01 16:22 | HPS.HSE ---
Family Physician
-
Family Physician: Santos Rao
Chief Complaint
-
seizure
History of Present Illness
Patient is a 38-year-old male with past medical history significant for hypertension, pontine hemorrhage, quadriplegia, depression and anxiety who presented to [facility] from [place] for prolonged seizure activity. [facility] sent patient
for evaluation s/p prolonged seizure activity at the facility. No previous history of seizures. Patient was seizing at arrival to ED and was stopped with IV Ativan. Patient loaded with Keppra.
Medical History
Past Medical History
Past Medical History: Reports Other
Additional Past Medical History:
hypertension
pontine hemorrhage
quadriplegia
depression
anxiety
Past Surgical History: Reports Other
Additional Past Surgical History:
L5-S1 Interlaminar Epidural Steroid Injection
Social History
Tobacco: Non-smoker
Alcohol: None
Drug: None
Personal:
Living: Snf
Employment: Disabled
Family History
Family History: Not pertinent
Allergies / Home Medications
Allergies reflects when Allergies were last updated in [facility].
Home Medications with original date entered in [facility]
Allergy/Medication List:
Allergies
Allergy/AdvReac Type Severity Reaction Status Date / Time
lisinopril Allergy Swelling/AN Verified 04/13/24 23:11
GIOEDEMA
Home Medications
baclofen 5 mg tablet 5 mg PO TID Muscle Spasms 12/14/23
buspirone 10 mg tablet 10 mg PO TID Depression 12/14/23
diazepam 5 mg tablet (Valium) 2.5 mg PO DAILY Muscle Spasms 12/14/23
diazepam 5 mg tablet (Valium) 5 mg PO HS Muscle Spasms 12/14/23
diazepam 5 mg tablet (Valium) 5 mg PO [id number] PRN muscle spasms 12/14/23
fluticasone propionate 50 mcg/actuation nasal spray,suspension 1 spray intranasal BID Congestion 12/14/23
nebivolol 10 mg tablet (Bystolic) 10 mg PO DAILY Blood Pressure 12/14/23
nebivolol 5 mg tablet (Bystolic) 5 mg PO HS Blood Pressure 12/14/23
polyethylene glycol 3350 17 gram oral powder packet (Miralax) 17 g PO DAILY Constipation 12/14/23
therapeutic multivitamin 1 tab PO DAILY Supplement 12/14/23
spironolactone 25 mg tablet 12.5 mg (1/2 x 25 mg) PO DAILY #0 tabs 12/21/23
acetaminophen 325 mg tablet (Tylenol) 650 mg PO Q4HPRN PRN mild pain/temp >100 04/13/24
amlodipine 5 mg tablet 5 mg PO DAILY Blood Pressure 04/13/24
bisacodyl 10 mg rectal suppository (Dulcolax (bisacodyl)) 10 mg SC DAILYPRN PRN if mom ineffect aftr 24 hrs 04/13/24
dextran 70-hypromellose (PF) 0.1 %-0.3 % eye drops in a dropperette (Artificial Tears (PF)) 1 drp BOTH EYES QID Eye Condition 04/13/24
loratadine 10 mg tablet (Claritin) 10 mg PO DAILY Allergies 04/13/24
magnesium hydroxide 400 mg/5 mL oral suspension (Milk of Magnesia) 30 ml PO [id number] PRN no bm 3 days 04/13/24
melatonin 5 mg tablet 5 mg PO HS Sleep 04/13/24
quetiapine 25 mg tablet 25 mg PO BID 04/13/24
sodium phosphates 19 gram-7 gram/118 mL enema (Fleet Enema) 118 ml SC DAILYPRN PRN if dulcolax ineffect aftr 24 hrs 04/13/24
white petrolatum-mineral oil 83 %-15 % eye ointment 1 applic BOTH EYES HS Eye Condition 04/13/24
dextran 70-hypromellose (PF) 0.1 %-0.3 % eye drops in a dropperette 1 drp BOTH EYES QID 05/14/24
amantadine HCl 100 mg tablet 100 mg PO DAILY 09/01/24
pregabalin 75 mg capsule 75 mg PO BID 09/01/24
sertraline 100 mg tablet 100 mg PO DAILY 09/01/24
Review of Systems
-
History Source: Patient
Constitutional: Reports No Symptoms
EENT: Reports No Symptoms
Respiratory: Reports No Symptoms
Cardiac: Reports No Symptoms
Abdomen/GI: Reports No Symptoms
: Reports No Symptoms
Musculoskeletal: Reports No Symptoms
Skin: Reports No Symptoms
Neurological: Reports See HPI
Endocrine: Reports No Symptoms
Hematologic/Lymphatic: Reports No Symptoms
Psych: Reports No Symptoms
Physical Exam
Vital Signs
Vital Signs
Temp Pulse Resp BP Pulse Ox
97.2 F 68 13 119/82 94
09/01/24 14:13 09/01/24 15:00 09/01/24 15:00 09/01/24 15:00 09/01/24 14:17
Physical Exam
General: Well Developed, Well Nourished, No Apparent Distress, Comfortable and Conversant
HEENT: NormoCephalic, Moist mucous membranes, Atraumatic, PERRLA, [place] Conjunctivae, Nose Appears Normal and Ears Appear Normal
Respiratory: Clear and Non Labored Respirations
Cardiac: S1/S2 and Regular Rhythm; No Murmur, Rub or Gallop
Breast: Deferred by me
GI: Soft, Non Tender, Non Distended and Normal Bowel Sounds; No Organomegaly
Rectal: Deferred by Provider
Genito-urinary: Deferred by me
Musculoskeletal: No Clubbing, No Cyanosis and No Edema
Skin: Warm and IV/Catheter Site; No Rash
Neuro: Awake, Alert, AO x 3 and Nonfocal/grossly intact
Psych: Calm and Intact Judgment/Insight
Laboratory Results
-
09/01/24 14:15
09/01/24 14:15
Laboratory Results
Total Bilirubin Cancelled 09/01/24 14:15
AST Cancelled 09/01/24 14:15
ALT Cancelled 09/01/24 14:15
Alkaline Phosphatase Cancelled 09/01/24 14:15
Data Reviewed
-
CT Scan: Report Reviewed by me (Head:1. No acute intracranial abnormalities appreciated. 2. Subtle focus of hypoattenuation within the brenda, likely in the area of prior pontine hemorrhage. No acute hemorrhage is appreciated.)
Medical Tests (Nuc Med, Echo, EKG etc): Report Reviewed by me (EKG: NORMAL SINUS RHYTHM MINIMAL VOLTAGE CRITERIA FOR LVH, MAY BE NORMAL VARIANT ( R in aVL ))
Lab Data: Labs Reviewed by me
Impression/Plan
-
IMPRESSION/PLAN:
#new onset seizure activity
Head CT: 1. No acute intracranial abnormalities appreciated.
2. Subtle focus of hypoattenuation within the brenda, likely in the area of prior pontine hemorrhage. No acute hemorrhage is appreciated.
- admit to telemetry
- consult neurology
- consult speech to clear for PO
- start Keppra
- PRN lorazepam
#hypertension
- continue amlodipine, nebivolol, and spironolactone
#pontine hemorrhage
#quadriplegia
- continue amantadine, baclofen, diazepam, and pregabalin
#depression
#anxiety
- continue quetiapine, and sertraline
#Hx tracheostomy/PEG with reversal
Code status: Full code
DVT prophylaxis: SCDs
--- NOTE | 2024-09-01 16:27 | CON.NEURO ---
Neuro Assessment/Plan
Assessment
EEG generalized beta (Ativan effect)
Head CT subtle pontine hypoattenuation (residual bleed)
Brain MRI 03/2024 mild microvascular changes
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
to be any provoking factors,
Plan
will obtain brain MRI with and without contrast, patient with history of brainstem injury, without history of cerebral injury
given description of prolonged seizure and likely status epilepticus, suspect he may have had multiple seizures, agree load Keppra 2 g, will start Keppra 500 BID,
Consultation
Order
Date of Consultation: 09/01/24
Requesting Provider: Jasmina Cannon
Reason for Consult: prolonged seizure
Subjective/Objective
Subjective Data
Date of Service: September 01, 2024
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 He
is usually verbal, but arrived in the ED with staring and facial twitching. he was given Keppra 2 mg IV, and ordered Keppra 2 grams
Does not appear to have a seizure history, and not on outpatient antiseizure drugs
Objective Data
Vital Signs
Temp Pulse Resp BP Pulse Ox
36.2 C 68 13 119/82 94
09/01/24 14:13 09/01/24 15:00 09/01/24 15:00 09/01/24 15:00 09/01/24 14:17
Lab Results
09/01/24 14:15
09/01/24 14:15
Sodium 138 mmol/L (135-145) 09/01/24 14:15
Potassium mmol/L (3.5-5.1) 09/01/24 14:15
BUN 8 mg/dl (9-20) L 09/01/24 14:15
Glucose 140 mg/dl (70-99) H 09/01/24 14:15
Calcium 9.3 mg/dl (8.4-10.2) 09/01/24 14:15
Patient Allergies
lisinopril Allergy (Verified 04/13/24 23:11)
Swelling/ANGIOEDEMA
Physical Exam
-
AAOx age, month, place
spastic speech
attends bilaterally
face symmetric
Medications
-
Home Medications
�Medication �Instructions �Recorded
baclofen 5 mg tablet 5 mg PO TID Muscle Spasms 12/14/23
buspirone 10 mg tablet 10 mg PO TID Depression 12/14/23
diazepam 5 mg tablet (Valium) 2.5 mg PO DAILY Muscle Spasms 12/14/23
diazepam 5 mg tablet (Valium) 5 mg PO HS Muscle Spasms 12/14/23
diazepam 5 mg tablet (Valium) 5 mg PO [id number] PRN muscle spasms 12/14/23
fluticasone propionate 50 1 spray intranasal BID Congestion 12/14/23
mcg/actuation nasal
spray,suspension
nebivolol 10 mg tablet (Bystolic) 10 mg PO DAILY Blood Pressure 12/14/23
nebivolol 5 mg tablet (Bystolic) 5 mg PO HS Blood Pressure 12/14/23
polyethylene glycol 3350 17 gram 17 g PO DAILY Constipation 12/14/23
oral powder packet (Miralax)
therapeutic multivitamin 1 tab PO DAILY Supplement 12/14/23
spironolactone 25 mg tablet 12.5 mg (1/2 x 25 mg) PO DAILY #0 12/21/23
tabs
acetaminophen 325 mg tablet 650 mg PO Q4HPRN PRN mild 04/13/24
(Tylenol) pain/temp >100
amlodipine 5 mg tablet 5 mg PO DAILY Blood Pressure 04/13/24
bisacodyl 10 mg rectal suppository 10 mg SC DAILYPRN PRN if mom 04/13/24
(Dulcolax (bisacodyl)) ineffect aftr 24 hrs
dextran 70-hypromellose (PF) 0.1 1 drp BOTH EYES QID Eye Condition 04/13/24
%-0.3 % eye drops in a dropperette
(Artificial Tears (PF))
loratadine 10 mg tablet (Claritin) 10 mg PO DAILY Allergies 04/13/24
magnesium hydroxide 400 mg/5 mL 30 ml PO [id number] PRN no bm 3 days 04/13/24
oral suspension (Milk of Magnesia)
melatonin 5 mg tablet 5 mg PO HS Sleep 04/13/24
quetiapine 25 mg tablet 25 mg PO BID 04/13/24
sodium phosphates 19 gram-7 118 ml SC DAILYPRN PRN if dulcolax 04/13/24
gram/118 mL enema (Fleet Enema) ineffect aftr 24 hrs
white petrolatum-mineral oil 83 1 applic BOTH EYES HS Eye Condition 04/13/24
%-15 % eye ointment
dextran 70-hypromellose (PF) 0.1 1 drp BOTH EYES QID 05/14/24
%-0.3 % eye drops in a dropperette
amantadine HCl 100 mg tablet 100 mg PO DAILY 09/01/24
pregabalin 75 mg capsule 75 mg PO BID 09/01/24
sertraline 100 mg tablet 100 mg PO DAILY 09/01/24
--- NOTE | 2024-09-01 16:50 | W.PN.UPDATE ---
Addendum entered and electronically signed by Joe Salmon MD 09/01/24 16:56:
Neuro consult noted:
- HX brainstem injury, without HX cerebral injury
- pending brain MRI with and without contrast
- s/p load Keppra 2 g then Keppra 500 BID
- Neuro consult follow up
Original Note:
Update Note
Progress Note Update
This note serves as an addendum to the H&P by photoengraving supervisor JADA Lopez
HPI
38M Quadriplegic s/p HX Pontine H'ge Res of [facility] , prior Reversal HX Tracheostomy/PEG tube placement, non ambulatory , prior HX Pontine ICH, HTN DVT, no prior documented HX of Sz, no prior AEDs seen at ER:
- new onset of Sz at NH for 10-15mins
- EMS Rx with IV Versed en route.
- Sz at ER
At ER Rx with IV Keppra 2 gm and IV Ativan 2 mg
PHX; as above
Vital Signs
Temp Pulse Resp BP Pulse Ox
97.2 F 68 13 119/82 94
09/01/24 14:13 09/01/24 15:00 09/01/24 15:00 09/01/24 15:00 09/01/24 14:17
PE
Gen: awake and alert, approrpaietly interactive, POS healthy sense of humor
HEENT: symmetric face, chr slurred speech
Neck: supple
Lungs: CTA
Cor: RRR S1 S2
Abdomen: benign
SPACE SCIENCES DIRECTOR: AAO3 , NFND, POS involuntary movements of head and arms ? Chorea but not Szs
MS: b/l Ej atrophy
Psych: POS healthy sense of humor
Laboratory Tests
09/01/24
14:15
WBC 9.4
Hgb 15.2
Plt Count 209
Creatinine 0.6 L
eGFR > 60.00
EEG
generalized beta activity
Clinical Correlation: likely medication effect of benzodiazepines.
HCT wo contrast
1. No acute intracranial abnormalities appreciated.
2. Subtle focus of hypoattenuation within the brenda, likely in the area of prior pontine hemorrhage. No acute hemorrhage is appreciated.
EKG
NORMAL SINUS RHYTHM
MINIMAL VOLTAGE CRITERIA FOR LVH, MAY BE NORMAL VARIANT ( R in aVL )
BORDERLINE ECG
WHEN COMPARED WITH ECG OF 01-SEP-2024 14:17,
SINUS RHYTHM HAS REPLACED ECTOPIC ATRIAL RHYTHM
LIMB LEAD REVERSAL NO LONGER PRESENT
Confirmed by JOSE GUADALUPE COUCH MD ([id number]) on 09/01/2024 3:24:40 PM
Last hospitalist admission: Date of Admission: 04/13/24 - Date of Discharge: 04/18/24
Discharge Diagnosis/Procedures: Encephalopathy, likely toxic/vascular
ASSESSMENT & PLAN
Presumed new onset Sz
Possible related to prior HX Pontine ICH
No EEG evidence of status epilepticus
- IV Keppra 500mg BID
- ST evaluation for POs
- IVF
- Neuro consulted a ER
[place] HTN
- await ST to clear for POs
Prior HX Tracheostomy/PEG tube placement with reversal of trachestomy and PEG
Non ambulatory
Prior HX Pontine ICH
HX DVT
DVT Px: SCD
Full code
IP TLM
[2024-09-01 17:21] LABS: Potassium 4.8 mmol/L (3.5-5.1)
--- NOTE | 2024-09-01 18:57 | PTCARENOTE ---
Pt arrived to unit from ED via stretcher; transferred over to bed by nursing staff. Pt AAOx3. Quadriplegic. Right arm seen with purposeful movement. Left arm with small movements. No movement observed in legs. Pt states (+) sensation head to toe.
States baseline dysphagia. Speech slow. SaO2 95% on room air. Sinus rhythm on secured entrance monitor. Incontinent of urine. Condom catheter #25 applied. #18 in left AC.
[2024-09-01] MEDS: KEPPRA 500 MG TUBE (21:33)
[2024-09-01] MEDS: NSS 1000 IV (21:34)
[2024-09-01] MEDS: SEROQUEL 25 MG PO (21:35)
[2024-09-01] MEDS: REFRESH CELLUVISC GEL 1 DROPS BOTH EYES (21:35)
[2024-09-01] MEDS: MELATONIN 5 MG PO (21:35)
[2024-09-01] MEDS: LYRICA 75 MG PO (21:35)
[2024-09-01] MEDS: BUSPAR 10 MG PO (21:36)
[2024-09-01] MEDS: VALIUM 5 MG PO (21:38)
[2024-09-01] MEDS: BYSTOLIC 5 MG PO (21:38)
[2024-09-01] MEDS: REFRESH EYE DROPS (PF) 1 DROPS BOTH EYES (21:40)
[2024-09-01] MEDS: LIORESAL 5 MG PO (21:40)
[2024-09-01] MEDS: REFRESH EYE DROPS (PF) BOTH EYES (21:40)
[2024-09-02 03:00] VITALS: BP 119/79
[2024-09-02] MEDS: NSS 1000 IV ×2 (05:56→17:48)
[2024-09-02 07:22] LABS: Hematocrit 42.2 % (39.0-52.0); Hemoglobin 13.9 g/dL (13.0-18.0); Mean Corp Hgb Conc. 32.9 g/dL (33.0-37.0); Mean Corpuscular Hgb 28.5 pg (27.0-31.0); Mean Corpuscular Volume 86.5 fL (80.0-94.0); Mean Platelet Volume 10.4 fL (7.4-10.4); Platelet Count 222 10^3/uL (130-400); Red Blood Cell Count 4.88 10^6/uL (4.70-6.10); Red Cell Dist. Width 14.9 % (11.5-14.5); White Blood Cell Count 8.2 10^3/uL (4.8-10.8)
[2024-09-02 08:01] LABS: Blood Urea Nitrogen 10 mg/dl (9-20); Calcium 9.1 mg/dl (8.4-10.2); Carbon Dioxide 26 mmol/L (22-30); Chloride 103 mmol/L (98-107); Estimated Creatinine Clearance > 125 ml/min; Glucose 96 mg/dl (70-99); Potassium 4.6 mmol/L (3.5-5.1); Sodium 139 mmol/L (135-145); eGFR > 60.00
[2024-09-02] MEDS: BYSTOLIC 10 MG PO (10:38)
[2024-09-02] MEDS: ZOLOFT 100 MG PO (10:39)
[2024-09-02] MEDS: CLARITIN 10 MG PO (10:39)
[2024-09-02] MEDS: SYMMETREL 100 MG PO (10:39)
[2024-09-02] MEDS: ALDACTONE 12.5 MG PO (10:39)
[2024-09-02] MEDS: LIORESAL 5 MG PO ×3 (10:39→21:15)
[2024-09-02] MEDS: BUSPAR 10 MG PO ×3 (10:40→21:13)
[2024-09-02] MEDS: THERAGRAN 1 TABLET PO (10:40)
[2024-09-02] MEDS: SEROQUEL 25 MG PO ×2 (10:40→21:15)
[2024-09-02] MEDS: REFRESH EYE DROPS (PF) 1 DROPS BOTH EYES ×3 (10:41→21:02)
[2024-09-02] MEDS: NORVASC 5 MG PO (10:41)
[2024-09-02] MEDS: LYRICA 75 MG PO ×2 (10:42→21:14)
[2024-09-02] MEDS: VALIUM 2.5 MG PO (10:44)
[2024-09-02 11:00] VITALS: BP 126/06
--- NOTE | 2024-09-02 13:11 | W.PN.HOSP.TC ---
Today's Communication/Plan
-
Discharge tomorrow
Assessment / Plan
Assessment / Plan
HPI: 38-year-old male with past medical history significant for hypertension, pontine hemorrhage, quadriplegia, depression and anxiety who presented to [facility] from [place] for concerns of seizure activity. jail sent patient for
evaluation s/p prolonged seizure activity at the facility. No previous history of seizures. Patient was seizing at arrival to ED and was stopped with IV Ativan. Patient loaded with Keppra.
#Concern for seizure activity
EEG negative for seizures
Appreciate neurology input, patient does not have seizures
Neurology discussed with patient's mother regarding his presentation that concerns nursing staff about seizures.
Neurology and mother does not feel that patient has seizures
Patient has these episodes secondary to emotional stress
Need to inform the shelter to not send the patient to the hospital for these episodes.
Discharge to the shelter tomorrow
#Dysphagia
Cleared by SPL for minced/moist diet with moderately thickened/honey thickened liquids
#Hypertension
- continue amlodipine, nebivolol, and spironolactone
#pontine hemorrhage
#quadriplegia
- continue amantadine, baclofen, diazepam, and pregabalin
#depression
#anxiety
- continue quetiapine, and sertraline
#Hx tracheostomy/PEG with reversal
DVT prophylaxis�subcu Lovenox
Full code
Total time spent to see the patient on the floor, examine the patient, review data and lab results, discuss treatment plan with patient, nursing staff around 51 minutes.
Physical Exam
General: Obese, no acute distress
HEENT: Normocephalic, Atraumatic, EOMI, MMM
Respiratory: Clear to Auscultation bilaterally
Cardiac: Normal S1/S2, Regular Rate and Rhythm
GI: Soft, Nontender, Nondistended, Normal Bowel Sounds
Extremities: No Clubbing, Cyanosis
Lower extremity edema noted
Neuro: Chronic dysarthria and jerking of the head
Psych: Calm, Cooperative
Derm: No Visible lesions
Anticipated Discharge: Within 24 hours
Subjective/Interval History
-
Date of Service: September 02, 2024
No recurrence of staring spells. Patient is thirsty, and is asking to eat. No fever, no vomiting.
Objective Data
-
Labs:
Laboratory Results
09/02/24
07:02
WBC 8.2
Hgb 13.9
Hct 42.2
Plt Count 222
Sodium 139
Potassium 4.6
Chloride 103
Carbon Dioxide 26
BUN 10
Creatinine 0.7
Glucose 96
Calcium 9.1
Vital Signs:
Vital Signs
Temp Pulse Resp BP Pulse Ox
98.1 F 56 20 119/79 93
09/02/24 07:00 09/02/24 03:00 09/02/24 07:00 09/02/24 03:00 09/02/24 07:00
I&O
09/01/24 09/02/24 09/03/24
06:59 06:59 06:59
Output Total 225 / 225
Balance -225 / -225
--- NOTE | 2024-09-02 13:15 | PTOTSP ---
Speech Therapy Evaluation:
Patient exhibits clinical signs of oropharyngeal dysphagia, likely chronic related to history of pontine CVA (2022). Pt consuming puree and moderately thick liquids via tsp at [facility]. Prior VSE at in November 2023 recommended IDDSI Level
5 Minced and Moist diet and mildly-thick liquids, though pt/family have preferred moderately thick liquids. Pt appears to be at baseline level of swallow function at this time, though remains at increased risk of aspiration given dependence for
feeding and concern for seizure like activity. WBC WNL. No chest imaging completed thus far.
Recommend:
1. IDDSI Level 5 Minced and Moist and Moderately thick liquids (pt/family preference over mildly thick liquids)
2. Medications crushed in puree
3. Aspiration precautions: 1:1 assistance; Upright positioning; Ensure oral cavity clear post p.o. intake; Check for pocketing; Alternate textures; Small sips/bites; Slow rate of intake; Monitor CXR and labs/temp; D/c oral diet if any decline in
mental or respiratory status
4. Oral care 3x/day
5. ST to follow and determine indication for VSE as appropriate
--- NOTE | 2024-09-02 13:21 | W.PN.NEURO.1 ---
Today's Communication / Plan
-
ok to discharge
d/c Keppra
no rx
his facility should be informed that he does not need to come to the ED for this event anymore
Neuro Assessment/Plan
Assessment
EEG generalized beta (Ativan effect)
Head CT subtle pontine hypoattenuation (residual bleed)
Brain MRI today mild microvascular changes
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
this event may actually represent PNEA, though it was never captured on EEG
Plan
ok to discharge
d/c Keppra
no rx
his facility should be informed that he does not need to come to the ED for this event anymore
Subjective/Objective
Subjective Data
Date of Service: September 02, 2024
Spoke with patient and his mother and father at bedside. Since his pontine hemorrhage in 04/2023, he has had this event occur multiple times. Responded poorly to Keppra, and numerous other seizure meds were tried with no help/excess sedation. He had
EEG monitoring
patient does endorse extensive emotional prior to the event
Objective Data
Vital Signs
Temp Pulse Resp BP Pulse Ox
36.7 C 56 20 119/79 93
09/02/24 07:00 09/02/24 03:00 09/02/24 07:00 09/02/24 03:00 09/02/24 07:00
Lab Results
09/02/24 07:02
09/02/24 07:02
Sodium 139 mmol/L (135-145) 09/02/24 07:02
Potassium 4.6 mmol/L (3.5-5.1) 09/02/24 07:02
BUN 10 mg/dl (9-20) 09/02/24 07:02
Glucose 96 mg/dl (70-99) 09/02/24 07:02
Calcium 9.1 mg/dl (8.4-10.2) 09/02/24 07:02
Patient Allergies
lisinopril Allergy (Verified 04/13/24 23:11)
Swelling/ANGIOEDEMA
Physical Exam
-
AAOx age, month, place
spastic speech
attends bilaterally
face symmetric
b/l UE antigravity, senior clinical research scientist 5/5
b/l LE 2/5
increased tone
--- NOTE | 2024-09-02 14:11 | CM ---
CM reviewed chart, confirmed with liaison from [facility], patient is LT resident, wheelchair bound, ata lift for transfers, no auth required for patient to return. Patient seen bedside with parents, confirmed patient is LTC, will require
ambulance transport back to facility, plan for discharge tomorrow. CM confirmed patient PCP Dr. Rao, pharmacy [facility]. CM will continue to follow for all discharge planning needs.
Plan; return to [facility] tomorrow, will require ambulance transport
[facility]:
Report: [phone]
[2024-09-02] MEDS: KEPPRA TUBE (14:21)
[2024-09-02 16:00] VITALS: BP 118/71
[2024-09-02] MEDS: REFRESH EYE DROPS (PF) BOTH EYES (18:02)
[2024-09-02 19:55] VITALS: BP 123/73
[2024-09-02] MEDS: REFRESH CELLUVISC GEL 1 DROPS BOTH EYES (21:02)
[2024-09-02] MEDS: BYSTOLIC 5 MG PO (21:13)
[2024-09-02] MEDS: MELATONIN 5 MG PO (21:15)
[2024-09-02] MEDS: VALIUM 5 MG PO (21:15)
[2024-09-02 23:34] VITALS: BP 105/72
[2024-09-03 03:00] VITALS: BP 125/79
[2024-09-03 03:05] VITALS: BP 116/66
[2024-09-03] MEDS: NSS 1000 IV (04:19)
[2024-09-03 07:31] VITALS: BP 135/81
[2024-09-03] MEDS: SYMMETREL 100 MG PO (08:50)
[2024-09-03] MEDS: CLARITIN 10 MG PO (08:50)
[2024-09-03] MEDS: THERAGRAN 1 TABLET PO (08:51)
[2024-09-03] MEDS: ALDACTONE 12.5 MG PO (08:51)
[2024-09-03] MEDS: BYSTOLIC 10 MG PO (08:51)
[2024-09-03] MEDS: ZOLOFT 100 MG PO (08:51)
[2024-09-03] MEDS: BUSPAR 10 MG PO (08:52)
[2024-09-03] MEDS: LIORESAL 5 MG PO (08:52)
[2024-09-03] MEDS: VALIUM 2.5 MG PO (08:52)
--- NOTE | 2024-09-03 08:52 | W.PN.HOSP.TC ---
Today's Communication/Plan
-
Discharge to fdc today
Assessment / Plan
Assessment / Plan
HPI: 38-year-old male with past medical history significant for hypertension, pontine hemorrhage, quadriplegia, depression and anxiety who presented to [facility] from [place] for concerns of seizure activity. jail sent patient for
evaluation s/p prolonged seizure activity at the facility. No previous history of seizures. Patient was seizing at arrival to ED and was stopped with IV Ativan. Patient loaded with Keppra.
#Concern for seizure activity
EEG negative for seizures
Appreciate neurology input, patient does not have seizures
Neurology discussed with patient's mother regarding his presentation that concerns nursing staff about seizures.
Neurology and mother does not feel that patient has seizures
Patient has these episodes secondary to emotional stress
Need to inform the fdc to not send the patient to the hospital for these episodes
Discharge to the fdc today
#Dysphagia
Cleared by SPL for minced/moist diet with moderately thickened/honey thickened liquids -patient is tolerating
#Hypertension
- continue amlodipine, nebivolol, and spironolactone
#pontine hemorrhage
#quadriplegia
- continue amantadine, baclofen, diazepam, and pregabalin
#depression
#anxiety
- continue quetiapine, and sertraline
#Hx tracheostomy/PEG with reversal
DVT prophylaxis�subcu Lovenox
Full code
Physical Exam
General: Obese, no acute distress
HEENT: Normocephalic, Atraumatic, EOMI, MMM
Respiratory: Clear to Auscultation bilaterally
Cardiac: Normal S1/S2, Regular Rate and Rhythm
GI: Soft, Nontender, Nondistended, Normal Bowel Sounds
Extremities: No Clubbing, Cyanosis
Lower extremity edema noted
Neuro: Chronic dysarthria and jerking of the head
Psych: Calm, Cooperative
Derm: No Visible lesions
Anticipated Discharge: Today
Subjective/Interval History
-
Date of Service: September 03, 2024
No acute events. Patient is tolerating his diet. He denies pain. No fever, no vomiting.
Objective Data
-
Vital Signs:
Vital Signs
Temp Pulse Resp BP Pulse Ox
98.4 F 53 20 135/81 98
09/03/24 07:31 09/03/24 07:31 09/03/24 07:31 09/03/24 07:31 09/03/24 07:31
I&O
09/02/24 09/03/24 09/04/24
06:59 06:59 06:59
Intake Total 1060 / 1060
Output Total 225 / 225 1950 / 1950
Balance -225 / -225 -890 / -890
[2024-09-03] MEDS: SEROQUEL 25 MG PO (08:53)
[2024-09-03] MEDS: LYRICA 75 MG PO (08:53)
[2024-09-03] MEDS: NORVASC 5 MG PO (08:53)
[2024-09-03] MEDS: REFRESH EYE DROPS (PF) 1 DROPS BOTH EYES ×2 (08:54→13:56)
--- NOTE | 2024-09-03 09:56 | CM ---
CM reviewed chart, patient for discharge today back to [facility]. Patient scheduled for 2:30 p.m. ambulance transport. Call to patients mother to provide update, parents will meet patient at facility. Update to admissions at [facility]. CM will
continue to follow for all discharge planning needs.
Plan; return to [facility], 2:30 p.m. ambulance transport
[facility]:
Report: [phone]
[2024-09-03 11:00] VITALS: BP 91/55
--- NOTE | 2024-09-03 14:10 | PTCARENOTE ---
Report called in to Lou at [facility]. IVF stopped. bus monitor removed. Patient for discharge at 2:30
[2024-09-03 14:19] VITALS: BP 117/80
[2024-09-03 15:07] VITALS: BP 125/79
--- NOTE | 2024-09-03 15:33 | W.DCSUMMARY ---
Discharge Summary
Discharge Data
Date of Admission: 09/01/24
Date of Discharge: 09/03/24
-
Pending Results: No
Hospital Course
Discharge diagnosis:
Concern for seizure activity, seizures ruled out by neurology
Dysphagia
Hypertension
History of pontine hemorrhage
Quadriplegia
Anxiety/depression
History of tracheostomy/percutaneous endoscopic gastrostomy tube status post reversal
Consults: Neurology
Brain MRI:
There are no acute intracranial abnormalities.
There is mild cortical and cerebellar atrophy with mild nonspecific white matter changes as described above.
There is stable hemosiderin deposition in the posterior aspect of the brenda consistent with residual from old pontine hemorrhage
EEG:
Background: Continuous generalized slowing, polymorphic theta, symmetric and reactive. moderate amplitude generalized beta activity.
Sleep: some sleep spindles are seen
Focal/rhythmic/epileptiform: none
Seizures: none
Photic stim: no background change
Impression: generalized beta activity
Clinical Correlation: likely medication effect of benzodiazepines.
Hospital course:
38-year-old male with a past medical history of pontine hemorrhage, tracheostomy/PEG with reversal, quadriplegia, and dysphagia, who was sent from his group home for concerns of seizure activity. Patient was seen in conjunction with neurology. He
was loaded with IV Keppra. Neurology discussed with his mother, who reports that Keppra makes him more lethargic and slow to respond. Patient's mother states that he tends to have these episodes of staring when he is emotionally stressed. He is
going through some stressful events with his . Patient's EEG is negative for seizure activity. Both neurology and patient's mother agree that patient did not have seizures.
Patient has a history of dysphagia. He was seen in conjunction with speech pathology, who recommended a minced/moist diet with moderately thickened/honey thickened liquids. He tolerated his diet.
Patient is medically stable for discharge back to his nursing facility. His nursing facility has been informed to not send him to the hospital for these episodes, since they are not seizures.
Disposition: [facility]
Discharge planning: Required 42 minutes
Discharge Plan
-
Patient Disposition: Half-Way/SNF
Discharge Diagnosis/Procedures: Seizures ruled out by neurology, history of pontine hemorrhagic stroke, quadriplegia, dysphagia, dysarthria
Condition: Fair
Diet: Other diet
Additional Diets: Minced/moist diet with honey/moderately thickened liquids
Activity: As tolerated
Activity Restrictions/Additional Instructions:
Patient has been seen by neurology. EEG is negative for seizures.
Neurology discussed with patient's mother regarding his presentation that concerns nursing staff about seizures.
Neurology and mother do not feel that patient has seizures.
Patient has these episodes secondary to emotional stress.
Please do not send the patient to the hospital for these episodes.
Referrals:
Santos Rao I., DO [Family Provider] - in one week
Prescriptions:
Continued
polyethylene glycol 3350 [Miralax] 17 gram Powder In Packet
17 g PO DAILY
therapeutic multivitamin Tablet
1 tab PO DAILY
buspirone 10 mg Tablet
10 mg PO TID
fluticasone propionate 50 mcg/actuation [place],Suspension
1 spray INTRANASAL BID
diazepam [Valium] 5 mg Tablet
5 mg PO HS
diazepam [Valium] 5 mg Tablet
2.5 mg PO DAILY
diazepam [Valium] 5 mg Tablet
5 mg PO [id number] PRN (Reason: muscle spasms)
nebivolol [Bystolic] 5 mg Tablet
5 mg PO HS
nebivolol [Bystolic] 10 mg Tablet
10 mg PO DAILY
baclofen 5 mg Tablet
5 mg PO TID
spironolactone 25 mg Tablet
12.5 mg PO DAILY Qty: 0 0RF
quetiapine 25 mg Tablet
25 mg PO BID
acetaminophen [Tylenol] 325 mg Tablet
650 mg PO Q4HPRN MDD 3000 mg PRN (Reason: mild pain/temp >100)
magnesium hydroxide [Milk of Magnesia] 400 mg/5 mL Suspension
30 ml PO [id number] PRN (Reason: no bm 3 days)
bisacodyl [Dulcolax (bisacodyl)] 10 mg Suppository
10 mg [place] DAILYPRN PRN (Reason: if mom ineffect aftr 24 hrs)
Fleet Enema 19-7 gram/118 mL Enema
118 ml [place] DAILYPRN PRN (Reason: if dulcolax ineffect aftr 24 hrs)
loratadine [Claritin] 10 mg Tablet
10 mg PO DAILY
white petrolatum-mineral oil 83-15 % Ointment
1 applic BOTH EYES HS
melatonin 5 mg Tablet
5 mg PO HS
Artificial Tears (PF) 0.1-0.3 % Dropperette
1 drp BOTH EYES QID
amlodipine 5 mg tablet
5 mg PO DAILY
dextran 70-hypromellose (PF) 0.1-0.3 % Dropperette
1 drp BOTH EYES QID
amantadine HCl 100 mg Tablet
100 mg PO DAILY
sertraline 100 mg Tablet
100 mg PO DAILY
pregabalin 75 mg Capsule
75 mg PO BID
Discharge Orders:
Discharge Patient (As Directed); Ordered 09/03/24
Ordered By: Tyrone Khan
Discharge Date and Time
Discharge Date/Time: 09/03/24 15:36
Print Language: KAZAKH
== END 2024-09-03 15:36 | DRG 91 ==
LOC: 4 WEST ACU 17:29
PROVIDERS: Nurse Practitioner Family; ADMITTING PHYSICIAN Internal Medicine; ATTENDING PHYSICIAN Family Medicine; CONSULT PHYSICIAN Psychiatry & Neurology Clinical Neurophysiology; EMERGENCY PHYSICIAN Emergency Medicine; FAMILY PHYSICIAN Internal Medicine
DX: R47.1 Dysarthria and anarthria (principal); G82.50 Quadriplegia, unspecified; I61.3 Nontraumatic intracerebral hemorrhage in brain stem; I10 Essential (primary) hypertension; F32.A Depression, unspecified; F41.9 Anxiety disorder, unspecified; Z86.73 Personal history of transient ischemic attack (TIA), and cerebral infarction without residual deficits; R13.10 Dysphagia, unspecified; Z86.718 Personal history of other venous thrombosis and embolism
CPT/HCPCS: 70450; 70553; 80048; 84132; 85025; 85027; 92610; 93005; 95816; 96374; 96375; 99291; A9575

== ENCOUNTER 2024-10-26 12:28 | Emergency (ER) | payer OTHER, SELFPAY ==
[2024-10-26 12:28] VITALS: BMI 32.3
[2024-10-26 12:35] VITALS: BP 141/87
[2024-10-26 13:00] VITALS: BP 135/92
[2024-10-26 13:30] VITALS: BP 139/89
[2024-10-26 14:00] VITALS: BP 152/90
[2024-10-26 14:30] VITALS: BP 164/152
--- NOTE | 2024-10-26 14:50 | ED.GENMED ---
History of Present Illness
General
Chief Complaint: Fall
Source: patient
Exam Limitations: none
Time Seen by Provider: 10/26/24 14:34
Nursing documentation reviewed up to this point in time: agreed with except (Patient states right knee issue-triage note mentions issue with the left knee)
History of Present Illness
History of Present Illness:
38-year-old male with history as documented presents to the ER for evaluation after fall. Patient unfortunately is bedbound lives at [facility]. Staff moved him using a Crystal lift. Apparently the lift tipped over today and patient fell to the
ground. He struck his right knee on the ground. No head strike or loss of consciousness. No other serious injuries. He has some mild pain in the right knee but denies any other complaints. Father also requesting an x-ray of the left shoulder as
apparently he was having some shoulder pain after he was turned the other day�patient says shoulder pain has resolved.
Past History
Past History
ED Past Medical History: HTN and Other (Gout. DVT, brain hemorrhage from hypertension)
ED Past Surgical History: Orthopedic and Other (Tracheostomy/PEG tube placement)
Social History
Tobacco: Non-smoker
Alcohol: None
Drug: None
Personal:
Living: assisted living
Employment: Disabled
Family History
Family History: Other (father has RA)
Review of Systems
Review of Systems
All Other Systems: ROS reviewed and negative except as documented in HPI and ROS
Musculoskeletal: Reports joint pain
Phy Exam
Physical Exam
Physical Exam:
General: Awake, alert
Head: Normocephalic, atraumatic
Eyes: Conjunctiva normal, pupils equal round and reactive to light bilaterally
Throat: Airway intact, handling secretions
Neck: Trachea midline, no cervical spine tenderness
Back: No tenderness in the thoracic or lumbar region
Lungs: Breathing comfortably no distress
Heart: Regular rate; no tenderness in the chest wall
Abd: Soft, non distended, nontender
Extremities: Patient has no bruising, abrasions in the right knee, no joint effusion, no joint line tenderness or pain with manipulation of patella, mild tenderness over the tibial tuberosity but full range of motion passively in the right knee
without apparent pain; left shoulder no significant tenderness, no pain on passive range of motion; rest of extremities atraumatic, good strong pulses throughout
Scores
Heart Failure Risk
Heart Failure Risk Score: Not Applicable
Heart Score for Chest Pain Patients
STEMI patient?: Not applicable
Withdrawal Assessment of Alcohol
Withdrawal Assessment Completed?: Not applicable
Course
Orders/Labs/Results
Orders:
Orders
10/26/24 14:42
CR Knee- Right 4 Or More View* Urgent
Comment:
Reason For Exam: right knee pain s/p fall
CR Shoulder, Trauma - Left Urgent
Reason For Exam: left shoulder pain s/p fall
Vital Signs
Initial and Last Documented VS:
Initial Vital Signs
Temp Pulse Resp BP Pulse Ox
36.6 C 54 12 141/87 95
10/26/24 12:35 10/26/24 12:35 10/26/24 12:35 10/26/24 12:35 10/26/24 12:35
Last Documented Vital Signs
Temp Pulse Resp BP Pulse Ox
36.6 C 55 10 164/152 96
10/26/24 12:35 10/26/24 14:45 10/26/24 14:45 10/26/24 14:30 10/26/24 14:30
MDM/Problems Addressed
Differential Diagnosis Includes:
Knee contusion, knee fracture, internal derangement
MDM/Problems Addressed:
38-year-old male presents after fall with some right knee pain. Check x-ray of the right knee. Father also requesting x-ray of the shoulder as he was having some pain earlier this week after being turned. Reassess after the above.
X-rays reviewed by me show no acute fracture or dislocation. Stable for discharge.
Chronic conditions affecting care:
Quadriplegia requiring Crystal lift for assist
*Radiology
Radiology exam reviewed: preliminary read by ED provider
*Pulse Oximetry
Patient hypoxic: no
*Critical Care Note
Total Time (30-74mins, 75-104mins- exclusive of procedures): Not Applicable
Data Reviewed
Source: patient and records
ED Attending Note
-
Portions of this chart may have been created with voice recognition software.� Occasional wrong word or��sound alike� substitutions may have occurred due to the inherent limitations of voice recognition software.
Discharge Plan
Departure
Patient Disposition: Home (Routine Discharge)
Date of Disposition: 10/26/24
Time of Disposition: 15:43
Patient with high blood pressure during this ER visit?: Yes
Discharge Problem:
Contusion of knee, right
Instructions: Contusion (DC)
Prescriptions:
No Action
polyethylene glycol 3350 [Miralax] 17 gram Powder In Packet
17 g PO DAILY
therapeutic multivitamin Tablet
1 tab PO DAILY
buspirone 10 mg Tablet
10 mg PO TID
fluticasone propionate 50 mcg/actuation [place],Suspension
1 spray INTRANASAL BID
diazepam [Valium] 5 mg Tablet
5 mg PO HS
diazepam [Valium] 5 mg Tablet
2.5 mg PO DAILY
diazepam [Valium] 5 mg Tablet
5 mg PO [id number] PRN (Reason: muscle spasms)
nebivolol [Bystolic] 5 mg Tablet
5 mg PO HS
nebivolol [Bystolic] 10 mg Tablet
10 mg PO DAILY
baclofen 5 mg Tablet
5 mg PO TID
spironolactone 25 mg Tablet
12.5 mg PO DAILY Qty: 0 0RF
quetiapine 25 mg Tablet
25 mg PO BID
acetaminophen [Tylenol] 325 mg Tablet
650 mg PO Q4HPRN MDD 3000 mg PRN (Reason: mild pain/temp >100)
magnesium hydroxide [Milk of Magnesia] 400 mg/5 mL Suspension
30 ml PO [id number] PRN (Reason: no bm 3 days)
bisacodyl [Dulcolax (bisacodyl)] 10 mg Suppository
10 mg [place] DAILYPRN PRN (Reason: if mom ineffect aftr 24 hrs)
Fleet Enema 19-7 gram/118 mL Enema
118 ml [place] DAILYPRN PRN (Reason: if dulcolax ineffect aftr 24 hrs)
loratadine [Claritin] 10 mg Tablet
10 mg PO DAILY
white petrolatum-mineral oil 83-15 % Ointment
1 applic BOTH EYES HS
melatonin 5 mg Tablet
5 mg PO HS
Artificial Tears (PF) 0.1-0.3 % Dropperette
1 drp BOTH EYES QID
amlodipine 5 mg tablet
5 mg PO DAILY
dextran 70-hypromellose (PF) 0.1-0.3 % Dropperette
1 drp BOTH EYES QID
amantadine HCl 100 mg Tablet
100 mg PO DAILY
sertraline 100 mg Tablet
100 mg PO DAILY
pregabalin 75 mg Capsule
75 mg PO BID
Referrals:
Santos Rao I., DO [Family Provider] - Follow up in 5-7 days
Activity Restrictions/Additional Instructions:
Thank you for visiting the Emergency Department at [facility].
1. Please schedule a follow up appointment as directed. Call first thing tomorrow morning to make an appointment.
2. If indicated, please take your medications as instructed and indicated on discharge paperwork.
3. If any of your symptoms do not improve, or persist, or become more severe within 6-12 hours, please return to the emergency department for further care.
4. Please return to the emergency department if you develop a headache, neck pain/stiffness, fever greater than 100.4F, chest pain, shortness of breath, persistent nausea, vomiting, slurred speech, difficulty walking, numbness/tingling, weakness,
signs of infection or any other symptoms that are worrisome to you.
Please call [phone] if you have any questions.
Interventions
Interventions:
*Risk Screen - Suicide Last Done: 10/26/24 12:35
*General Assessment Last Done: 10/26/24 12:40
*Neglect/Abuse Screening Last Done: 10/26/24 12:35
*ED- Fall Risk Assessment Last Done: 10/26/24 12:40
ED-Musculoskeletal Assessment Last Done: 10/26/24 12:40
ED- Neurological Assessment Last Done: 10/26/24 12:40
ED-Skin Assessment Last Done: 10/26/24 12:40
Discharge Date and Time
Print Language: SOUTH SUDANESE
[2024-10-26 16:02] VITALS: BP 128/64
== END 2024-10-26 19:55 ==
LOC: EMR 12:28
PROVIDERS: EMERGENCY PHYSICIAN Emergency Medicine; FAMILY PHYSICIAN Internal Medicine
DX: S80.01XA Contusion of right knee, initial encounter (principal); W17.89XA Other fall from one level to another, initial encounter; G82.50 Quadriplegia, unspecified; I10 Essential (primary) hypertension; Z74.01 Bed confinement status; Z86.718 Personal history of other venous thrombosis and embolism; Z86.73 Personal history of transient ischemic attack (TIA), and cerebral infarction without residual deficits
CPT/HCPCS: 99283; 73030; 73564

== ENCOUNTER 2024-12-02 02:59 | Inpatient (IN) | payer OTHER, SELFPAY ==
[2024-12-01 22:20] VITALS: BP 113/100; BMI 32.6
[2024-12-01 23:01] VITALS: BP 98/55
[2024-12-01 23:20] LABS: % Basophils 0.3 % (0-2); % Eosinophils 2.6 % (0-6); % Immature Granulocytes 0.3 % (0-0.5); % Lymphocytes 19.4 % (20.5-51.1); % Monocytes 6.1 % (1.7-9.3); % Neutrophils 71.3 % (42.2-75.2); Absolute Eosinophils 0.3 10^3/uL (0-0.7); Absolute Lymphocytes 2.3 10^3/uL (1.2-3.4); Absolute Monocytes 0.7 10^3/uL (0.1-0.6); Absolute Neutrophils 8.3 10^3/uL (1.4-6.5); Hematocrit 43.8 % (39.0-52.0); Hemoglobin 14.3 g/dL (13.0-18.0); Mean Corp Hgb Conc. 32.6 g/dL (33.0-37.0); Mean Corpuscular Hgb 28.1 pg (27.0-31.0); Mean Corpuscular Volume 86.1 fL (80.0-94.0); Mean Platelet Volume 10.5 fL (7.4-10.4); Nucleated Red Blood Cells % 0 % (-); Platelet Count 240 10^3/uL (130-400); Red Blood Cell Count 5.09 10^6/uL (4.70-6.10); Red Cell Dist. Width 15.1 % (11.5-14.5); White Blood Cell Count 11.6 10^3/uL (4.8-10.8)
[2024-12-01 23:36] LABS: ALT (SGPT) 16 U/L (0-50); AST (SGOT) 21 U/L (17-59); Albumin 4.7 g/dl (3.5-5.0); Alkaline Phosphatase 112 U/L (38-126); Blood Urea Nitrogen 10 mg/dl (9-20); Calcium 9.3 mg/dl (8.4-10.2); Carbon Dioxide 25 mmol/L (22-30); Chloride 106 mmol/L (98-107); Estimated Creatinine Clearance > 125 ml/min; Glucose 112 mg/dl (70-99); Potassium 4.6 mmol/L (3.5-5.1); Sodium 142 mmol/L (135-145); Total Bilirubin 0.7 mg/dl (0.2-1.3); Total Protein 8.7 g/dl (6.3-8.2); eGFR > 60.00
[2024-12-02] VITALS (9 sets, daily range): BP systolic 109–133; BP diastolic 63–89; BMI 32.2
--- NOTE | 2024-12-02 00:17 | ED.GENMED ---
History of Present Illness
General
Chief Complaint: Numbness
Source: patient
Exam Limitations: none
Time Seen by Provider: 12/01/24 23:05
History of Present Illness
History of Present Illness:
39-year-old male with history of hemorrhagic stroke in April 2023 resulting in chronic left-sided deficit presents complaining of new right sided facial numbness. Family, mother who is a nurse states that his speech has also been more slurred
than usual. This started today upon awakening at 11 AM. Patient denies headache. He denies new weakness or numbness to the extremities. No reported fever. No chest pain or shortness of breath. No other complaints at this time
Past History
Past History
ED Past Medical History: HTN and Other (Gout. DVT, brain hemorrhage from hypertension)
ED Past Surgical History: Orthopedic and Other (Tracheostomy/PEG tube placement)
Social History
Tobacco: Non-smoker
Alcohol: None
Drug: None
Personal:
Living: assisted living
Employment: Disabled
Family History
Family History: Other (father has RA)
Phy Exam
Physical Exam
Physical Exam:
General: Well-developed male no acute respiratory distress
HEENT normocephalic there is a left-sided facial droop which is chronic. Mucosa dry
Heart: Regular rate and rhythm lungs: Clear no wheeze
Neurologic exam: Alert answering questions there is a mild to moderate amount of dysarthria. There is a left facial droop but subjectively decreased sensation to the right side of the face. This is new. No new motor deficit to the extremities
bilaterally.
Extremities: No cyanosis
Course
Orders/Labs/Results
Orders:
Orders
12/01/24 23:13
Complete Blood Count/With Diff Urgent
Comprehensive Metabolic Panel Urgent
12/01/24 23:18
CT Head W/o Iv Contrast Urgent
Comment:
Reason For Exam: right sided numbness
12/02/24 00:00
CT Head & Neck Angio W/wo IV Urgent
Reason For Exam: new right sided numbness and dysarthria
Abnormal Lab Results
12/01/24
23:13
WBC 11.6 H 10^3/uL
(4.8-10.8)
MCHC 32.6 L g/dL
(33.0-37.0)
RDW 15.1 H %
(11.5-14.5)
MPV 10.5 H fL
(7.4-10.4)
Absolute Neuts (auto) 8.3 H 10^3/uL
(1.4-6.5)
Absolute Monos (auto) 0.7 H 10^3/uL
(0.1-0.6)
Lymphocytes % 19.4 L %
(20.5-51.1)
Glucose 112 H mg/dl
(70-99)
Total Protein 8.7 H g/dl
(6.3-8.2)
12/01/24 23:13
12/01/24 23:13
Vital Signs
Initial and Last Documented VS:
Initial Vital Signs
Temp Pulse Resp BP Pulse Ox
97.7 F 68 18 113/100 95
12/01/24 22:20 12/01/24 22:20 12/01/24 22:20 12/01/24 22:20 12/01/24 22:20
Last Documented Vital Signs
Temp Pulse Resp BP Pulse Ox
97.7 F 57 14 116/89 93
12/01/24 22:20 12/02/24 01:15 12/02/24 01:15 12/02/24 01:00 12/02/24 00:26
MDM/Problems Addressed
Differential Diagnosis Includes:
Stroke history with new onset numbness to the right side of the face and increased dysarthria. Objectively on exam somewhat difficult to tell what is chronic and new left per family is more dysarthric at this time. Will order CT of the head as
well as CTA of the head and neck. Patient is not a TNK candidate given the duration of time that has elapsed. Discussed with emergency room attending
*Critical Care Note
Total Time (30-74mins, 75-104mins- exclusive of procedures): Not Applicable
Update Note
Update Note:
CT of head and CTA of head and neck negative for acute findings. Discussed with patient and mother who is a nurse here. She states that the speech is definitely worse than his baseline. Subjectively complains of numbness to the face on the right
side. Discussed with emergency room attending. Will plan on keeping him in hospital for further stroke workup.
ED Attending Note
-
Portions of this chart may have been created with voice recognition software.� Occasional wrong word or��sound alike� substitutions may have occurred due to the inherent limitations of voice recognition software.
Discharge Plan
Departure
Patient Disposition: Admit
Date of Disposition: 12/02/24
Time of Disposition: 01:42
Presentation/result/management discussed w/ accepting MD/DO: Hospitalist
Discharge Problem:
Dysarthria
Prescriptions:
No Action
polyethylene glycol 3350 [Miralax] 17 gram Powder In Packet
17 g PO DAILY
therapeutic multivitamin Tablet
1 tab PO DAILY
buspirone 10 mg Tablet
10 mg PO TID
fluticasone propionate 50 mcg/actuation [place],Suspension
1 spray INTRANASAL BID
diazepam [Valium] 5 mg Tablet
5 mg PO HS
diazepam [Valium] 5 mg Tablet
2.5 mg PO DAILY
diazepam [Valium] 5 mg Tablet
5 mg PO [id number] PRN (Reason: muscle spasms)
nebivolol [Bystolic] 5 mg Tablet
5 mg PO HS
nebivolol [Bystolic] 10 mg Tablet
10 mg PO DAILY
baclofen 5 mg Tablet
5 mg PO TID
spironolactone 25 mg Tablet
12.5 mg PO DAILY Qty: 0 0RF
quetiapine 25 mg Tablet
25 mg PO BID
acetaminophen [Tylenol] 325 mg Tablet
650 mg PO Q4HPRN MDD 3000 mg PRN (Reason: mild pain/temp >100)
magnesium hydroxide [Milk of Magnesia] 400 mg/5 mL Suspension
30 ml PO [id number] PRN (Reason: no bm 3 days)
bisacodyl [Dulcolax (bisacodyl)] 10 mg Suppository
10 mg [place] DAILYPRN PRN (Reason: if mom ineffect aftr 24 hrs)
Fleet Enema 19-7 gram/118 mL Enema
118 ml [place] DAILYPRN PRN (Reason: if dulcolax ineffect aftr 24 hrs)
loratadine [Claritin] 10 mg Tablet
10 mg PO DAILY
white petrolatum-mineral oil 83-15 % Ointment
1 applic BOTH EYES HS
melatonin 5 mg Tablet
5 mg PO HS
Artificial Tears (PF) 0.1-0.3 % Dropperette
1 drp BOTH EYES QID
amlodipine 5 mg tablet
5 mg PO DAILY
dextran 70-hypromellose (PF) 0.1-0.3 % Dropperette
1 drp BOTH EYES QID
amantadine HCl 100 mg Tablet
100 mg PO DAILY
sertraline 100 mg Tablet
100 mg PO DAILY
pregabalin 75 mg Capsule
75 mg PO BID
Referrals:
Santos Rao I., DO [Family Provider] -
Interventions
Interventions:
*Risk Screen - Suicide Last Done: 12/01/24 22:20
*General Assessment Last Done: 12/01/24 22:20
*Neglect/Abuse Screening Last Done: 12/01/24 22:20
*ED- Fall Risk Assessment Last Done: 12/01/24 22:20
*ED COVID-19 Vaccine History Last Done: 12/01/24 22:20
ED- Neurological Assessment Last Done: 12/01/24 22:29
Discharge Date and Time
Print Language: SA[place]
--- NOTE | 2024-12-02 02:41 | HPS.HSE ---
Family Physician
-
Family Physician: Santos Rao
Chief Complaint
-
R Facial Numbness / Dysarthria
History of Present Illness
Patient is a 39y M with PMH significant for pontine hemorrhage and spastic quadriplegia who presents to ED complaining of right-sided facial numbness and dysarthria. Patient states that he woke this AM with these symptoms and they have persisted
through the day unchanged. He denies any headache, facial pain. He denies any similar pins / needles in the RUE or RLE. He denies any recent complaints including cough, sore throat, fevers / chills, N/V/D, etc.
Only recent med change was increase in Lyrica from 50mg BID to 75mg BID on November 23.
No prior history of similar symptoms.
Patient has chronic L facial droop / asymmetry and spastic quadriplegia with L > R sided weakness following pontine hemorrhage / hypertensive ICH in 2022.
Medical History
Past Medical History
Past Medical History: Reports Other
Additional Past Medical History:
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
Spastic Quadriplegia secondary to the above
Hypertension
Anxiety / Depression
Dysphagia
Past Surgical History: Reports Other
Additional Past Surgical History:
Trach / PEG (since reversed)
Social History
Tobacco: Non-smoker
Alcohol: None
Drug: None
Living: [facility]
Family History
Family History: Not pertinent
Allergies / Home Medications
Allergies reflects when Allergies were last updated in [facility].
Home Medications with original date entered in [facility]
Allergy/Medication List:
Allergies
Allergy/AdvReac Type Severity Reaction Status Date / Time
lisinopril Allergy Swelling/AN Verified 12/01/24 22:32
GIOEDEMA
Home Medications
baclofen 5 mg tablet 5 mg PO TID Muscle Spasms 12/14/23
buspirone 10 mg tablet 10 mg PO TID Depression 12/14/23
diazepam 5 mg tablet (Valium) 2.5 mg PO DAILY Muscle Spasms 12/14/23
diazepam 5 mg tablet (Valium) 5 mg PO HS Muscle Spasms 12/14/23
diazepam 5 mg tablet (Valium) 5 mg PO [id number] PRN muscle spasms 12/14/23
fluticasone propionate 50 mcg/actuation nasal spray,suspension 1 spray intranasal BID Congestion 12/14/23
nebivolol 10 mg tablet (Bystolic) 10 mg PO DAILY Blood Pressure 12/14/23
nebivolol 5 mg tablet (Bystolic) 5 mg PO HS Blood Pressure 12/14/23
polyethylene glycol 3350 17 gram oral powder packet (Miralax) 17 g PO DAILY Constipation 12/14/23
therapeutic multivitamin 1 tab PO DAILY Supplement 12/14/23
spironolactone 25 mg tablet 12.5 mg (1/2 x 25 mg) PO DAILY #0 tabs 12/21/23
acetaminophen 325 mg tablet (Tylenol) 650 mg PO Q4HPRN PRN mild pain/temp >100 04/13/24
amlodipine 5 mg tablet 5 mg PO DAILY Blood Pressure 04/13/24
bisacodyl 10 mg rectal suppository (Dulcolax (bisacodyl)) 10 mg CA DAILYPRN PRN if mom ineffect aftr 24 hrs 04/13/24
dextran 70-hypromellose (PF) 0.1 %-0.3 % eye drops in a dropperette (Artificial Tears (PF)) 1 drp BOTH EYES QID Eye Condition 04/13/24
loratadine 10 mg tablet (Claritin) 10 mg PO DAILY Allergies 04/13/24
magnesium hydroxide 400 mg/5 mL oral suspension (Milk of Magnesia) 30 ml PO [id number] PRN no bm 3 days 04/13/24
quetiapine 25 mg tablet 25 mg PO BID 04/13/24
sodium phosphates 19 gram-7 gram/118 mL enema (Fleet Enema) 118 ml CA DAILYPRN PRN if dulcolax ineffect aftr 24 hrs 04/13/24
white petrolatum-mineral oil 83 %-15 % eye ointment 1 applic BOTH EYES HS Eye Condition 04/13/24
dextran 70-hypromellose (PF) 0.1 %-0.3 % eye drops in a dropperette 1 drp BOTH EYES QID 05/14/24
amantadine HCl 100 mg tablet 100 mg PO DAILY 09/01/24
pregabalin 75 mg capsule 75 mg PO BID 09/01/24
sertraline 100 mg tablet 150 mg PO DAILY 09/01/24
Review of Systems
-
History Source: Patient and Family
A 12 point ROS was completed and negative except as noted: Yes
Constitutional: Denies Fever or Chills
EENT: Denies Sore Throat
Respiratory: Denies Cough or Trouble Breathing
Cardiac: Denies Chest Pain or Palpitations
Abdomen/GI: Denies Abdominal Pain, Nausea, Vomiting or Diarrhea
: Denies Dysuria, Frequency or Flank Pain
Musculoskeletal: Denies Joint Pain or Edema
Neurological: Reports Weakness, Numbness and Other (Chronix extremity weakness without change. New R facial pins / needles and dysarthria.); Denies Dizzy or Headache
Physical Exam
Vital Signs
Vital Signs
Temp Pulse Resp BP Pulse Ox
97.7 F 63 14 119/77 94
12/01/24 22:20 12/02/24 02:30 12/02/24 01:15 12/02/24 02:01 12/02/24 02:01
Physical Exam
General: Other (Chronically ill-appearing 39y M in no acute distress.)
HEENT: Moist mucous membranes
Respiratory: Clear; No Wheezes, Rales or Rhonchi
Cardiac: S1/S2 and Regular Rhythm; No Murmur
GI: Soft, Non Tender, Non Distended and Normal Bowel Sounds
Musculoskeletal: No Clubbing, No Cyanosis and No Edema
Neuro: AO x 3 and Other (L facial droop (chronic). Dysarthria (new / worse). Chronic L > R weakness.)
Laboratory Results
-
12/01/24 23:13
12/01/24 23:13
Laboratory Results
Total Bilirubin 0.7 mg/dl (0.2-1.3) 12/01/24 23:13
AST 21 U/L (17-59) 12/01/24 23:13
ALT 16 U/L (0-50) 12/01/24 23:13
Alkaline Phosphatase 112 U/L (38-126) 12/01/24 23:13
Impression/Plan
-
A/P: Patient is a 39y M with PMH significant for spastic quadriplegia s/p prior pontine ICH who presents to ED complaining of new R facial paresthesias and dysarthria.
Right Facial Numbness / Tingling
Dysarthria
- Admit for further evaluation and treatment.
- CT / CTA done in the ED without acute findings.
- Symptoms present since waking this AM and have persisted unchanged since.
- Check MRI in AM.
- PT / OT / Speech therapy evaluations.
- Neurology evaluation.
- Add ASA daily for now.
- Follow neurologic exam for any changes from baseline.
Spastic Quadriplegia
s/p Bilateral Pontine ICH (2022)
- Chronic L > R weakness and spasticity.
- Continue current med regimen including baclofen, Valium, etc.
Benign Hypertension
- BP on the low side here in the ED.
- ? symptom exacerbation due to hypotension?
- Holding parameters for all BP agents to avoid hypotension.
- Adjust regimen as needed for adequate control,.
Anxiety / Depression
- Stable. Continue usual med regimen.
DVT Prophylaxis: SCDs
Code Status: Full
[2024-12-02 07:52] LABS: COVID-19 Antigen Negative (Negative)
[2024-12-02 08:19] LABS: Hematocrit 43.2 % (39.0-52.0); Hemoglobin 14.1 g/dL (13.0-18.0); Mean Corp Hgb Conc. 32.6 g/dL (33.0-37.0); Mean Corpuscular Hgb 28.3 pg (27.0-31.0); Mean Corpuscular Volume 86.6 fL (80.0-94.0); Mean Platelet Volume 10.8 fL (7.4-10.4); Platelet Count 221 10^3/uL (130-400); Red Blood Cell Count 4.99 10^6/uL (4.70-6.10); Red Cell Dist. Width 15.3 % (11.5-14.5)
--- NOTE | 2024-12-02 08:49 | CM ---
CM reviewed chart, confirmed with liaison from [facility], patient is LTC resident, wheelchair bound, ata lift for transfers, no auth required for patient to return.
CM will continue to follow for all discharge planning needs.
Plan: return to LTC at [facility] when medically stable; will require ambulance transport.
PCP: Dr. Rao
Pharm: [facility].
[facility]:
Report: [phone]
[2024-12-02 08:56] LABS: Blood Urea Nitrogen 10 mg/dl (9-20); Calcium 9.5 mg/dl (8.4-10.2); Carbon Dioxide 27 mmol/L (22-30); Chloride 104 mmol/L (98-107); Estimated Creatinine Clearance > 125 ml/min; Glucose 85 mg/dl (70-99); HDL Cholesterol 34 mg/dl; LDL Cholesterol, Calculated 132 mg/dl; Potassium 4.2 mmol/L (3.5-5.1); Sodium 142 mmol/L (135-145); Total Cholesterol 204 mg/dl (50-199); Triglyceride 193 mg/dl (10-149); Very Low Density Lipoprotein 38 mg/dl (0-30); eGFR > 60.00
[2024-12-02 09:14] LABS: Glycohemoglobin (HgbA1c) 5.3 % (4.0-5.6)
--- NOTE | 2024-12-02 09:23 | PTOTSP ---
Per chart review, patient is long-term care resident and requires Crystal lift for transfers. No functional goals to warrant PT evaluation, will sign off. Please reconsult if needs arise.
--- NOTE | 2024-12-02 09:24 | W.PN.HOSP.TC ---
Today's Communication/Plan
-
See PN
Assessment / Plan
Assessment / Plan
39yo M with quadriparesis L>R s/p hemorrhagic stroke, spastic paresis, dysphagia, spastic bladder, possible seizures in Aug 2024, contributed to emotional stress, considered to be PNEA not on AED came with R face numbness that traveling to L,
concern for new CVA. No tPA on admission due to time for symptom onset, CTA head neck with motion artifact, but no overt LVO
A/P:
#Face numbness, r/o CVA/TIA
ASA, statin
Neurochecks
Would allow permissive HTN as patient cane with low BP, hold antihypertensives
Neurology consult
MRI brain
Telemetry without clinically significant arrhythmia
LDL 132
TSH pending
HgbA1c 5.3%
#Mild leukocytosis
#spastic bladder
no fever, no signs of pneumonia on XR
COVID-19 and Influenza PCR [address]
CT showed some ground-glass opacitied on lung apices, similar to 2022 - outpatient validation software facilitator advised
CHeck UA
#Dysphagia
dysphagia diet
#Spastic quadriparesis s/p ICH
#Neuropathy
#HX of possible PNEA
#Anxiety
#Essential HTN
Hold antihypertensives and slowly uptitrate
cont home meds
DVT ppx SCDs
Full code
I ahve spent at least 57min reviewing chart, test results, communication with consultants and providing direct patient care
Anticipated Discharge: 24 - 48 hours
Subjective/Interval History
-
Date of Service: December 02, 2024
Objective Data
-
Labs:
Laboratory Results
12/01/24 12/02/24
23:13 06:27
WBC 11.6 H 11.0 H
Hgb 14.3 14.1
Hct 43.8 43.2
Plt Count 240 221
Sodium 142 142
Potassium 4.6 4.2
Chloride 106 104
Carbon Dioxide 25 27
BUN 10 10
Creatinine 0.7 0.7
Glucose 112 H 85
Calcium 9.3 9.5
Total Bilirubin 0.7
AST 21
ALT 16
Alkaline Phosphatase 112
Vital Signs:
Vital Signs
Temp Pulse Resp BP Pulse Ox
98.6 F 61 18 131/84 95
12/02/24 07:15 12/02/24 07:15 12/02/24 07:15 12/02/24 07:15 12/02/24 07:15
Review of Systems
-
Unable to obtain full review of systems at this time due to: Other (dysarthria)
History Source: Patient
Neuro: Reports Other (fascial numbness, traveling from R to L)
Physical Exam
-
General: Comfortable
HEENT: Normocephalic
Respiratory: Rales
Cardiac: Regular Rhythm
GI: Soft, Nontender and Nondistended
Musculoskeletal: No Clubbing, No Cyanosis and No Edema
Neuro: Awake, Alert, Slurred Speech and Facial Droop (L chronic)
Psych: Calm
[2024-12-02 09:27] LABS: TSH Reflex To Free T4 1.24 uIU/ml (0.47-4.68)
[2024-12-02] MEDS: VALIUM 2.5 MG PO (09:32)
[2024-12-02] MEDS: CLARITIN 10 MG PO (09:34)
[2024-12-02] MEDS: REFRESH EYE DROPS (PF) 1 DROPS BOTH EYES ×4 (09:34→20:22)
[2024-12-02] MEDS: BYSTOLIC 10 MG PO (09:34)
[2024-12-02] MEDS: LYRICA 75 MG PO ×2 (09:35→20:21)
[2024-12-02] MEDS: NORVASC 5 MG PO (09:35)
[2024-12-02] MEDS: ZOLOFT 150 MG PO (09:35)
[2024-12-02] MEDS: BUSPAR 10 MG PO ×3 (09:36→20:21)
[2024-12-02] MEDS: ALDACTONE 12.5 MG PO (09:36)
[2024-12-02] MEDS: SEROQUEL 25 MG PO ×2 (09:36→20:21)
[2024-12-02] MEDS: LOW STRENGTH ASPIRIN 81 MG PO (09:37)
[2024-12-02] MEDS: SYMMETREL 100 MG PO (09:37)
[2024-12-02] MEDS: LIORESAL 5 MG PO ×3 (09:38→20:21)
--- NOTE | 2024-12-02 09:44 | PTOTSP ---
Speech Pathology
Clinical Swallow Evaluation
39M with admission for CVA/TIA workup presents with right facial numbness and dysarthria. Dysphagia symptoms at this time appear consistent with his baseline. Would recommend continuing with his current modified diet of minced and moist solids and
moderately thick liquids, speech to follow.
Recommend:
1. Minced and Moist Solids (IDDSI 5) and Moderately thick (IDDSI 3)
2. Medications crushed in puree
3. Aspiration precautions: 1:1 assistance; Upright positioning; Ensure oral cavity clear post p.o. intake; Check for pocketing; Alternate textures; Small sips/bites; Slow rate of intake; Monitor CXR and labs/temp; D/c oral diet if any decline in
mental or respiratory status
4. Oral care 3x/day
5. ST to follow re: to assess tolerance of current diet level and provide dysphagia tx at the acute care level
--- NOTE | 2024-12-02 12:04 | W.PN.UPDATE ---
Update Note
Progress Note Update
#Hypoxia, acute hypoxic deficiency
XR chest clear, since patient is bedbount - reasonable CT chest to r/o PE
[2024-12-02] MEDS: NSS 500 IV (12:15)
[2024-12-02 12:23] LABS: Urine Albumin Negative (Neg - Trace); Urine Bilirubin Negative (Negative); Urine Character Clear (Clear); Urine Color Yellow; Urine Glucose Negative (Negative); Urine Ketone Negative (Negative); Urine Leukocyte Negative (Negative); Urine Nitrite Negative (Negative); Urine Occult Blood Negative (Negative); Urine Urobilinogen Negative (Neg - 1+)
[2024-12-02 14:23] LABS: NT-proBNP 65.3 pg/ml
--- NOTE | 2024-12-02 14:41 | W.PN.UPDATE ---
Update Note
Progress Note Update
#Bronchopneumonia on CT
Ceftriaxone/DOxy (avoid QT prolonginh agent with quetapin)
Sputum Cx, Legionella/S.pneumonia urinary Ag
--- NOTE | 2024-12-02 15:31 | CON.NEURO ---
Neuro Assessment/Plan
Assessment
39 year old man with 18 month history of pontine hemorrhage, spastic quadriparesis on the left
tingling is a gain of function, would most likely localize trigeminal nerve;
there is no loss of sensation symptomatically or on exam as could be expected with a stroke
therefore I don't believe MRI brain is necessary; patient has had 3 brain MRI's in the past year
I offered him increased medication or trigeminal nerve block which he declined;
discussed with patient's mom over the phone; she is upset and doesn't want to hear that recovery has completed; believes that Joselo will walk again and that he was depressed for a week after I said that on the last admission.
Consultation
Order
Date of Consultation: 12/02/24
Requesting Provider: Isael Singer DO
Reason for Consult: stroke
Subjective/Objective
Subjective Data
Date of Service: December 02, 2024
from h&p:
Patient is a 39y M with PMH significant for pontine hemorrhage and spastic quadriplegia who presents to ED complaining of right-sided facial numbness and dysarthria. Patient states that he woke this AM with these symptoms and they have persisted
through the day unchanged. He denies any headache, facial pain. He denies any similar pins / needles in the RUE or RLE. He denies any recent complaints including cough, sore throat, fevers / chills, N/V/D, etc.
Only recent med change was increase in Lyrica from 50mg BID to 75mg BID on November 23.
No prior history of similar symptoms.
Patient has chronic L facial droop / asymmetry and spastic quadriplegia with L > R sided weakness following pontine hemorrhage / hypertensive ICH in 2022.
he is known to me from admission this August, where he was admitted for seizure/status epilepticus but I eventually felt to be PNEA. patient tells me he is having tingling and numbness on the right side of the face which is similar to what he had
on the left side.
Objective Data
Vital Signs
Temp Pulse Resp BP Pulse Ox
36.8 C 58 16 128/83 91
12/02/24 11:21 12/02/24 11:21 12/02/24 11:21 12/02/24 11:21 12/02/24 11:21
Lab Results
12/02/24 06:27
12/02/24 06:27
Sodium 142 mmol/L (135-145) 12/02/24 06:27
Potassium 4.2 mmol/L (3.5-5.1) 12/02/24 06:27
BUN 10 mg/dl (9-20) 12/02/24 06:27
Glucose 85 mg/dl (70-99) 12/02/24 06:27
Calcium 9.5 mg/dl (8.4-10.2) 12/02/24 06:27
Wtc-R-Kpynxijllpd Pept 65.3 pg/ml 12/02/24 06:27
LDL Cholesterol, Calc 132 mg/dl 12/02/24 06:27
Patient Allergies
lisinopril Allergy (Verified 12/01/24 22:32)
Swelling/ANGIOEDEMA
Physical Exam
-
AAOx age, month, place, spastic speech, dysarthric
left facial droop
facial sensation intact V1-V3 to touch, temp, pin
spastic quadriparesis worse on the left.
b/l UE antigravity, weaker on the left. 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
b/l LE 2/5
Medications
-
Active Medications
Generic Name Dose Route Start Last Admin
Trade Name Freq PRN Reason Stop Dose Admin
Acetaminophen 650 mg 12/02/24 05:45
Acetaminophen 325 Mg Tablet PO 12/30/24 05:44
Q4HPRN PRN
mild pain/temp >100
Amantadine HCl 100 mg 12/02/24 08:00 12/02/24 09:37
Amantadine 100 Mg Capsule PO 12/30/24 07:59 100 mg
DAILY BRANDYN Administration
Amlodipine Besylate 5 mg 12/02/24 08:00 12/02/24 09:35
Amlodipine 5 Mg Tablet PO 12/30/24 07:59 5 mg
DAILY BRANDYN Administration
Artificial Tears 1 drops 12/02/24 08:00 12/02/24 09:34
Artificial Tears Pf (Refresh) 10 Drop Droperette BOTH EYES 12/30/24 07:59 1 drops
QID BRANDYN Administration
Aspirin 81 mg 12/02/24 08:00 12/02/24 09:37
Aspirin 81 Mg Chewable Tablet PO 12/30/24 07:59 81 mg
DAILY BRANDYN Administration
Atorvastatin Calcium 40 mg 12/02/24 18:00
Atorvastatin (Lipitor) 40 Mg Tablet PO 12/30/24 17:59
QPM BRANDYN
Baclofen 5 mg 12/02/24 08:00 12/02/24 09:38
Baclofen 5 Mg Tablet PO 12/30/24 07:59 5 mg
TID BRANDYN Administration
Buspirone HCl 10 mg 12/02/24 08:00 12/02/24 09:36
Buspirone 10 Mg Tablet PO 12/30/24 07:59 10 mg
TID BRANDYN Administration
Ceftriaxone Sodium 1,000 mg 12/02/24 16:00
Ceftriaxone 1000 Mg / 10 Ml Vial IV
Q24H BRANDYN
Diazepam 2.5 mg 12/02/24 08:00 12/02/24 09:32
Diazepam 5 Mg Tablet PO 12/30/24 07:59 2.5 mg
DAILY BRANDYN Administration
Diazepam 5 mg 12/02/24 22:00
Diazepam 5 Mg Tablet PO 12/30/24 21:59
HS BRANDYN
Guaifenesin 1,200 mg 12/02/24 20:00
Guaifenesin 600 Mg Extended Release Tablet PO 12/30/24 19:59
Q12 BRANDYN
Sodium Chloride 500 mls @ 100 mls/hr 12/02/24 12:04 12/02/24 12:15
Nss IV 12/02/24 17:03 500 mls
BOLUS ONE Administration
Doxycycline Hyclate 100 mg/ 260 mls @ 260 mls/hr 12/02/24 16:00
Sodium Chloride IV
Q12H BRANDYN
Loratadine 10 mg 12/02/24 08:00 12/02/24 09:34
Loratadine 10 Mg Tablet PO 12/30/24 07:59 10 mg
DAILY BRANDYN Administration
Nebivolol 5 mg 12/02/24 22:00
Nebivolol Hcl 2.5 Mg Tablet PO 12/30/24 21:59
HS BRANDYN
Nebivolol 10 mg 12/02/24 08:00 12/02/24 09:34
Nebivolol Hcl 10 Mg Tablet PO 12/30/24 07:59 10 mg
DAILY BRANDYN Administration
Polyethylene Glycol 17 grams 12/02/24 08:00 12/02/24 09:52
Polyethylene Glycol Powder 17 Grams Packet PO 12/30/24 07:59 Not Given
DAILY BRANDYN
Pregabalin 75 mg 12/02/24 08:00 12/02/24 09:35
Pregabalin 75 Mg Capsule PO 12/30/24 07:59 75 mg
BID BRANDYN Administration
Quetiapine Fumarate 25 mg 12/02/24 08:00 12/02/24 09:36
Quetiapine 25 Mg Tablet PO 12/30/24 07:59 25 mg
BID BRANDYN Administration
Sertraline HCl 150 mg 12/02/24 08:00 12/02/24 09:35
Sertraline 100 Mg Tablet PO 12/30/24 07:59 150 mg
DAILY BRANDYN Administration
Sodium Chloride 0 flush 12/02/24 05:00
Sodium Chloride 0.9% (Flush) Syringe IV 12/30/24 04:59
PER PROTOCOL BRANDYN
Spironolactone 12.5 mg 12/02/24 08:00 12/02/24 09:36
Spironolactone 25 Mg Tablet PO 12/30/24 07:59 12.5 mg
DAILY BARNDYN Administration
Home Medications
�Medication �Instructions �Recorded
baclofen 5 mg tablet 5 mg PO TID Muscle Spasms 12/14/23
buspirone 10 mg tablet 10 mg PO TID Depression 12/14/23
diazepam 5 mg tablet (Valium) 2.5 mg PO DAILY Muscle Spasms 12/14/23
diazepam 5 mg tablet (Valium) 5 mg PO HS Muscle Spasms 12/14/23
diazepam 5 mg tablet (Valium) 5 mg PO [id number] PRN muscle spasms 12/14/23
fluticasone propionate 50 1 spray intranasal BID Congestion 12/14/23
mcg/actuation nasal
spray,suspension
nebivolol 10 mg tablet (Bystolic) 10 mg PO DAILY Blood Pressure 12/14/23
nebivolol 5 mg tablet (Bystolic) 5 mg PO HS Blood Pressure 12/14/23
polyethylene glycol 3350 17 gram 17 g PO DAILY Constipation 12/14/23
oral powder packet (Miralax)
therapeutic multivitamin 1 tab PO DAILY Supplement 12/14/23
spironolactone 25 mg tablet 12.5 mg (1/2 x 25 mg) PO DAILY #0 12/21/23
tabs
acetaminophen 325 mg tablet 650 mg PO Q4HPRN PRN mild 04/13/24
(Tylenol) pain/temp >100
amlodipine 5 mg tablet 5 mg PO DAILY Blood Pressure 04/13/24
bisacodyl 10 mg rectal suppository 10 mg [place] DAILYPRN PRN if mom 04/13/24
(Dulcolax (bisacodyl)) ineffect aftr 24 hrs
dextran 70-hypromellose (PF) 0.1 1 drp BOTH EYES QID Eye Condition 04/13/24
%-0.3 % eye drops in a dropperette
(Artificial Tears (PF))
loratadine 10 mg tablet (Claritin) 10 mg PO DAILY Allergies 04/13/24
magnesium hydroxide 400 mg/5 mL 30 ml PO [id number] PRN no bm 3 days 04/13/24
oral suspension (Milk of Magnesia)
quetiapine 25 mg tablet 25 mg PO BID 04/13/24
sodium phosphates 19 gram-7 118 ml [place] DAILYPRN PRN if dulcolax 04/13/24
gram/118 mL enema (Fleet Enema) ineffect aftr 24 hrs
white petrolatum-mineral oil 83 1 applic BOTH EYES HS Eye Condition 04/13/24
%-15 % eye ointment
dextran 70-hypromellose (PF) 0.1 1 drp BOTH EYES QID 05/14/24
%-0.3 % eye drops in a dropperette
amantadine HCl 100 mg tablet 100 mg PO DAILY 09/01/24
pregabalin 75 mg capsule 75 mg PO BID 09/01/24
sertraline 100 mg tablet 150 mg PO DAILY 09/01/24
[2024-12-02] MEDS: ROCEPHIN 1000 MG IV (16:26)
[2024-12-02] MEDS: LIPITOR 40 MG PO (16:26)
[2024-12-02] MEDS: VIBRAMYCIN 260 MG IV (16:37)
[2024-12-02] MEDS: MUCINEX 1200 MG PO (20:21)
[2024-12-02] MEDS: VALIUM 5 MG PO (20:22)
[2024-12-02] MEDS: BYSTOLIC 5 MG PO (20:22)
[2024-12-03 03:35] VITALS: BP 124/81
[2024-12-03] MEDS: VIBRAMYCIN 260 MG IV (05:41)
[2024-12-03 07:00] VITALS: BP 123/73
[2024-12-03 08:16] LABS: % Basophils 0.4 % (0-2); % Eosinophils 4.4 % (0-6); % Immature Granulocytes 0.3 % (0-0.5); % Lymphocytes 24.5 % (20.5-51.1); % Monocytes 6.7 % (1.7-9.3); % Neutrophils 63.7 % (42.2-75.2); Absolute Eosinophils 0.3 10^3/uL (0-0.7); Absolute Lymphocytes 1.8 10^3/uL (1.2-3.4); Absolute Monocytes 0.5 10^3/uL (0.1-0.6); Absolute Neutrophils 4.6 10^3/uL (1.4-6.5); Hemoglobin 14.1 g/dL (13.0-18.0); Mean Corp Hgb Conc. 32.8 g/dL (33.0-37.0); Mean Corpuscular Hgb 28.2 pg (27.0-31.0); Mean Platelet Volume 10.6 fL (7.4-10.4); Nucleated Red Blood Cells % 0 % (-); Platelet Count 179 10^3/uL (130-400); Red Cell Dist. Width 15.3 % (11.5-14.5); White Blood Cell Count 7.3 10^3/uL (4.8-10.8)
[2024-12-03] MEDS: CLARITIN 10 MG PO (09:41)
[2024-12-03] MEDS: LOW STRENGTH ASPIRIN 81 MG PO (09:41)
[2024-12-03] MEDS: BYSTOLIC 10 MG PO (09:41)
[2024-12-03] MEDS: BUSPAR 10 MG PO (09:41)
[2024-12-03] MEDS: LIORESAL 5 MG PO (09:41)
[2024-12-03] MEDS: ALDACTONE 12.5 MG PO (09:41)
[2024-12-03] MEDS: LYRICA 75 MG PO (09:41)
[2024-12-03] MEDS: ZOLOFT 150 MG PO (09:42)
[2024-12-03] MEDS: REFRESH EYE DROPS (PF) 1 DROPS BOTH EYES ×2 (09:42→13:40)
[2024-12-03] MEDS: SYMMETREL 100 MG PO (09:42)
[2024-12-03] MEDS: SEROQUEL 25 MG PO (09:42)
[2024-12-03] MEDS: VALIUM 2.5 MG PO (09:42)
[2024-12-03] MEDS: NORVASC 5 MG PO (09:42)
--- NOTE | 2024-12-03 11:30 | W.PN.HOSP.TC ---
Today's Communication/Plan
-
DC
Assessment / Plan
Assessment / Plan
39yo M with quadriparesis L>R s/p hemorrhagic stroke, spastic paresis, dysphagia, spastic bladder, possible seizures in Aug 2024, contributed to emotional stress, considered to be PNEA not on AED came with R face numbness that traveling to L,
concern for new CVA. No tPA on admission due to time for symptom onset, CTA head neck with motion artifact, but no overt LVO. Found Bronchopneumonia on CT, improved on Abx and vest therapy. Will benefit from scheduled Duonebs and guaifenesin. Since
recent pneumonia - reasonable for extended course of Abx. Since afebrile with no leukocytosis - reasonable for outpatient treatment. THis agreed with mother. Can wean off O2 further in facility. Medically stable for D/C to SNF
A/P:
#Face numbness, 2/2 trigeminal neuralgia
ASA, statin
Neurochecks
Would allow permissive HTN as patient cane with low BP, hold antihypertensives
Neurology consult: MRI brain not needed as symptoms similar to prior and localized to trigeminal nerve
Telemetry without clinically significant arrhythmia
LDL 132
TSH pending
HgbA1c 5.3%
#spastic bladder
UA neg for UTI
#Acute hypoxic insufficiency 2/[address] with mucus pluggin
improved on vest therapy and Abx
COVID-19 and Influenza PCR neg
Wean off O2
#Dysphagia
dysphagia diet
#Spastic quadriparesis s/p ICH
#Neuropathy
#HX of possible PNEA
#Anxiety
#Essential HTN
tolerating well existent BP meds
cont home meds
DVT ppx SCDs
Full code
I have spent at least 37min reviewing chart, test results, communication with consultants and providing direct patient care
Anticipated Discharge: Today
Subjective/Interval History
-
Date of Service: December 03, 2024
Objective Data
-
Labs:
Laboratory Results
12/03/24
07:43
WBC 7.3
Hgb 14.1
Hct 43.0
Plt Count 179
Vital Signs:
Vital Signs
Temp Pulse Resp BP Pulse Ox
97.7 F 53 20 123/73 90
12/03/24 07:00 12/03/24 07:00 12/03/24 07:00 12/03/24 07:00 12/03/24 10:11
I&O
12/02/24 12/03/24 12/04/24
06:59 06:59 06:59
Intake Total 320 / 320
Output Total 825 / 825
Balance -505 / -505
Review of Systems
-
History Source: Patient
All other systems: Reviewed and negative
Physical Exam
-
General: No Apparent Distress
HEENT: Normocephalic
Respiratory: Clear to Auscultation
GI: Soft, Nontender and Nondistended
Musculoskeletal: No Clubbing, No Cyanosis and No Edema
Skin: Warm
Neuro: Awake, Alert, Oriented, AO x 3, Slurred Speech and Other (quadriplegia)
Psych: Calm
[2024-12-03 11:33] VITALS: BP 146/87
[2024-12-03] MEDS: MUCINEX PO (11:39)
--- NOTE | 2024-12-03 11:45 | W.DCSUMMARY ---
Discharge Summary
Discharge Data
Date of Admission: 12/02/24
Date of Discharge: 12/03/24
-
Pending Results: No
Hospital Course
39yo M with quadriparesis L>R s/p hemorrhagic stroke, spastic paresis, dysphagia, spastic bladder, possible seizures in Aug 2024, contributed to emotional stress, considered to be PNEA not on AED came with R face numbness that traveling to L,
concern for new CVA. No tPA on admission due to time for symptom onset, CTA head neck with motion artifact, but no overt LVO. Found Bronchopneumonia on CT, improved on Abx and vest therapy. Will benefit from scheduled Duonebs and guaifenesin. Since
recent pneumonia - reasonable for extended course of Abx. Since afebrile with no leukocytosis - reasonable for outpatient treatment. THis agreed with mother. Can wean off O2 further in facility. Medically stable for D/C to SNF. Repeated XR in 3
weeks advised
I have spent at least 37min reviewing chart, test results, communication with consultants and providing direct patient care
Patient was managed for:
#Face numbness, 2/2 trigeminal neuralgia
#spastic bladder
#Acute hypoxic insufficiency 2/[address] with mucus pluggin
#Dysphagia
#Spastic quadriparesis s/p ICH
#Neuropathy
#HX of possible PNEA
#Anxiety
#Essential HTN
Discharge Plan
-
Patient Disposition: Skilled Nursing/SNF
Discharge Diagnosis/Procedures: trigeminal neuralgia, bronchopneumonia
Diet: Other diet
Additional Diets: Minced and moist, honey thick liquid
Others Tests: Repeat XR chest in 3 weeks upon d/c
Referrals:
Santos Rao I., DO [Family Provider] -
Prescriptions:
New
cefdinir 300 mg capsule
300 mg PO Q12H Qty: 14 0RF
doxycycline hyclate 100 mg capsule
100 mg PO DAILY Qty: 14 0RF
ipratropium-albuterol 0.5 mg-3 mg(2.5 mg base)/3 mL Solution For Nebulization
3 ml inhalation R TID Qty: 180 0RF
guaifenesin 100 mg/5 mL Liquid
200 mg PO QID Qty: 118 0RF
Continued
polyethylene glycol 3350 [Miralax] 17 gram Powder In Packet
17 g PO DAILY
therapeutic multivitamin Tablet
1 tab PO DAILY
buspirone 10 mg Tablet
10 mg PO TID
fluticasone propionate 50 mcg/actuation [place],Suspension
1 spray INTRANASAL BID
diazepam [Valium] 5 mg Tablet
5 mg PO HS
diazepam [Valium] 5 mg Tablet
2.5 mg PO DAILY
diazepam [Valium] 5 mg Tablet
5 mg PO [id number] PRN (Reason: muscle spasms)
nebivolol [Bystolic] 5 mg Tablet
5 mg PO HS
nebivolol [Bystolic] 10 mg Tablet
10 mg PO DAILY
baclofen 5 mg Tablet
5 mg PO TID
spironolactone 25 mg Tablet
12.5 mg PO DAILY Qty: 0 0RF
quetiapine 25 mg Tablet
25 mg PO BID
acetaminophen [Tylenol] 325 mg Tablet
650 mg PO Q4HPRN MDD 3000 mg PRN (Reason: mild pain/temp >100)
magnesium hydroxide [Milk of Magnesia] 400 mg/5 mL Suspension
30 ml PO [id number] PRN (Reason: no bm 3 days)
bisacodyl [Dulcolax (bisacodyl)] 10 mg Suppository
10 mg KS DAILYPRN PRN (Reason: if mom ineffect aftr 24 hrs)
Fleet Enema 19-7 gram/118 mL Enema
118 ml KS DAILYPRN PRN (Reason: if dulcolax ineffect aftr 24 hrs)
loratadine [Claritin] 10 mg Tablet
10 mg PO DAILY
white petrolatum-mineral oil 83-15 % Ointment
1 applic BOTH EYES HS
Artificial Tears (PF) 0.1-0.3 % Dropperette
1 drp BOTH EYES QID
amlodipine 5 mg tablet
5 mg PO DAILY
dextran 70-hypromellose (PF) 0.1-0.3 % Dropperette
1 drp BOTH EYES QID
amantadine HCl 100 mg Tablet
100 mg PO DAILY
sertraline 100 mg Tablet
150 mg PO DAILY
pregabalin 75 mg Capsule
75 mg PO BID
Discharge Orders:
Discharge Patient (As Directed); Ordered 12/03/24
Ordered By: Hiram Ann
Discharge Date and Time
Print Language: [place]AST [place]
[2024-12-03 11:55] VITALS: BP 146/87
--- NOTE | 2024-12-03 12:21 | CM ---
CM following re: d/c planning.
Pt for d/c today; plan to return to [facility], where pt is a LT resident.
Call placed to admissions liaisonGrecia. Confirmed pt can be transported back.
[facility]:
Report: [phone]

Med necessity provided to .
Goal: transfer to .
[2024-12-03] MEDS: ROBITUSSIN 200 MG PO (13:40)
[2024-12-03] MEDS: DUONEB 3 ML INH (14:16)
--- NOTE | 2024-12-03 14:45 | PTCARENOTE ---
IV discontinued. Tele pack removed. Report given to Ellen at [facility]. Pt transported via ambulance stretcher off the floor.
== END 2024-12-03 14:50 | DRG 73 ==
LOC: 4 EAST ACU 02:59
PROVIDERS: Student in an Organized Health Care Education/Training Program; ADMITTING PHYSICIAN Hospitalist; ATTENDING PHYSICIAN Internal Medicine; CONSULT PHYSICIAN Psychiatry & Neurology Clinical Neurophysiology; EMERGENCY PHYSICIAN Student in an Organized Health Care Education/Training Program; FAMILY PHYSICIAN Internal Medicine
DX: G50.0 Trigeminal neuralgia (principal); G82.50 Quadriplegia, unspecified; J18.0 Bronchopneumonia, unspecified organism; T17.990A Other foreign object in respiratory tract, part unspecified in causing asphyxiation, initial encounter; W44.F9XA Other object of natural or organic material, entering into or through a natural orifice, initial encounter; I69.265 Other paralytic syndrome following other nontraumatic intracranial hemorrhage, bilateral; F32.A Depression, unspecified; F41.9 Anxiety disorder, unspecified; I10 Essential (primary) hypertension; N32.89 Other specified disorders of bladder; R13.10 Dysphagia, unspecified; I69.198 Other sequelae of nontraumatic intracerebral hemorrhage; Z87.01 Personal history of pneumonia (recurrent); Z79.899 Other long term (current) drug therapy
CPT/HCPCS: 70450; 70496; 70498; 71046; 71275; 80048; 80053; 80061; 81003; 83036; 83880; 84443; 85025; 85027; 87070; 87449; 87502; 87811; 87899; 92610; 94640; 94669; 99285; Q9967

== ENCOUNTER 2024-12-05 08:39 | Emergency (ER) | payer OTHER, SELFPAY ==
[2024-12-05 08:45] VITALS: BP 135/98
--- NOTE | 2024-12-05 09:10 | ED.GENMED ---
History of Present Illness
General
Chief Complaint: Urinary Symptoms
Time Seen by Provider: 12/05/24 08:42
History of Present Illness
History of Present Illness:
39-year-old male with history of hypertension and pontine hemorrhage with resultant paralysis presents from [facility] due to inability to urinate. He reports 'bladder pain'. Uncertain last time that he voided. No reported
fevers from the facility.
Past History
Past History
ED Past Medical History: HTN and Other (Gout. DVT, brain hemorrhage from hypertension)
ED Past Surgical History: Orthopedic and Other (Tracheostomy/PEG tube placement)
Social History
Tobacco: Non-smoker
Alcohol: None
Drug: None
Personal:
Living: assisted living
Employment: Disabled
Family History
Family History: Other (father has RA)
Review of Systems
Review of Systems
Allergies reviewed?: Yes
All Other Systems: ROS reviewed and negative except as documented in HPI and ROS
Phy Exam
Physical Exam
Physical Exam:
GEN: Well appearing, NAD, WDWN
HEENT: Oral mucosa moist, no scleral icterus
Cardiac: Regular rate
Lung: No respiratory distress, no tachypnea
Abdomen: Suprapubic distention noted
MSK: No gross deformity or injuries
Skin: Good color, no pallor or jaundice, no rashes
Neuro: Alert, baseline nystagmus and dyskinetic facial movements, baseline paralysis. Able to answer questions and communicate his complaints
Psych: Calm, cooperative
Course
Orders/Labs/Results
Orders:
Orders
12/05/24 08:42
Saenz Placement- Treatment ONCE
Reason for insertion: Acute Retention
12/05/24 08:56
Urinalysis Reflex To Culture Urgent
Date Specimen was Collected: 12/05/24
Time Specimen was Collected: 08:51
Urine Microscopic Reflex Cult Urgent
Abnormal Lab Results
12/05/24
08:56
Ur Occult Blood Reflex 4+ A
(Negative)
Urine RBC >100 A /HPF
(0-2)
Urine Albumin (Reflex) 1+ A
(Neg - Trace)
Vital Signs
Initial and Last Documented VS:
Initial Vital Signs
Temp Pulse Resp BP Pulse Ox
98.3 F 76 18 135/98 95
12/05/24 08:45 12/05/24 08:45 12/05/24 08:45 12/05/24 08:45 12/05/24 08:45
Last Documented Vital Signs
Temp Pulse Resp BP Pulse Ox
98.3 F 94 17 135/94 97
12/05/24 08:45 12/05/24 10:17 12/05/24 10:17 12/05/24 10:17 12/05/24 10:17
MDM/Problems Addressed
MDM/Problems Addressed:
Saenz catheter placed with greater than 1500 cc of urine drained. He is currently on cefdinir and doxycycline for recent hospitalization due to pneumonia thus I do not feel there is any need for additional antibiotics at this time. Will discharge
back to his facility. Family updated regarding plan
*Critical Care Note
Total Time (30-74mins, 75-104mins- exclusive of procedures): Not Applicable
ED Attending Note
-
Portions of this chart may have been created with voice recognition software.� Occasional wrong word or��sound alike� substitutions may have occurred due to the inherent limitations of voice recognition software.
Discharge Plan
Departure
Patient Disposition: Home (Routine Discharge)
Date of Disposition: 12/05/24
Time of Disposition: 09:23
Patient with high blood pressure during this ER visit?: No
Discharge Problem:
Acute urinary retention
Instructions: How to Care for Your Saenz Catheter, Male
Prescriptions:
No Action
polyethylene glycol 3350 [Miralax] 17 gram Powder In Packet
17 g PO DAILY
therapeutic multivitamin Tablet
1 tab PO DAILY
buspirone 10 mg Tablet
10 mg PO TID
fluticasone propionate 50 mcg/actuation [place],Suspension
1 spray INTRANASAL BID
diazepam [Valium] 5 mg Tablet
5 mg PO HS
diazepam [Valium] 5 mg Tablet
2.5 mg PO DAILY
diazepam [Valium] 5 mg Tablet
5 mg PO [id number] PRN (Reason: muscle spasms)
nebivolol [Bystolic] 5 mg Tablet
5 mg PO HS
nebivolol [Bystolic] 10 mg Tablet
10 mg PO DAILY
baclofen 5 mg Tablet
5 mg PO TID
spironolactone 25 mg Tablet
12.5 mg PO DAILY Qty: 0 0RF
quetiapine 25 mg Tablet
25 mg PO BID
acetaminophen [Tylenol] 325 mg Tablet
650 mg PO Q4HPRN MDD 3000 mg PRN (Reason: mild pain/temp >100)
magnesium hydroxide [Milk of Magnesia] 400 mg/5 mL Suspension
30 ml PO [id number] PRN (Reason: no bm 3 days)
bisacodyl [Dulcolax (bisacodyl)] 10 mg Suppository
10 mg [place] DAILYPRN PRN (Reason: if mom ineffect aftr 24 hrs)
Fleet Enema 19-7 gram/118 mL Enema
118 ml [place] DAILYPRN PRN (Reason: if dulcolax ineffect aftr 24 hrs)
loratadine [Claritin] 10 mg Tablet
10 mg PO DAILY
white petrolatum-mineral oil 83-15 % Ointment
1 applic BOTH EYES HS
Artificial Tears (PF) 0.1-0.3 % Dropperette
1 drp BOTH EYES QID
amlodipine 5 mg tablet
5 mg PO DAILY
dextran 70-hypromellose (PF) 0.1-0.3 % Dropperette
1 drp BOTH EYES QID
amantadine HCl 100 mg Tablet
100 mg PO DAILY
sertraline 100 mg Tablet
150 mg PO DAILY
pregabalin 75 mg Capsule
75 mg PO BID
cefdinir 300 mg capsule
300 mg PO Q12H Qty: 14 0RF
doxycycline hyclate 100 mg capsule
100 mg PO DAILY Qty: 14 0RF
ipratropium-albuterol 0.5 mg-3 mg(2.5 mg base)/3 mL Solution For Nebulization
3 ml inhalation R TID Qty: 180 0RF
guaifenesin 100 mg/5 mL Liquid
200 mg PO QID Qty: 118 0RF
Referrals:
Santos Rao DO [Family Provider] -
Eloy Reyes Jr., MD [Active] -
Activity Restrictions/Additional Instructions:
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
Interventions
Interventions:
*Risk Screen - Suicide Last Done: 12/05/24 08:57
*General Assessment Last Done: 12/05/24 08:57
*Neglect/Abuse Screening Last Done: 12/05/24 08:57
*ED COVID-19 Vaccine History Last Done: 12/05/24 08:57
*Nursing Disposition Last Done: 12/05/24 11:09
ED-Male Genitourinary Assessment Last Done: 12/05/24 08:45
Discharge Date and Time
Discharge Date/Time: 12/05/24 11:10
Print Language: [id number]
[2024-12-05 09:32] LABS: Urine Albumin 1+ (Neg - Trace); Urine Bilirubin Negative (Negative); Urine Character Clear (Clear); Urine Color Yellow; Urine Glucose Negative (Negative); Urine Ketone Negative (Negative); Urine Leukocyte Negative (Negative); Urine Nitrite Negative (Negative); Urine Occult Blood 4+ (Negative); Urine Urobilinogen Negative (Neg - 1+)
[2024-12-05 10:17] VITALS: BP 135/94
[2024-12-05 10:23] LABS: Urine Squamous Cell 0-2 /LPF (Few)
[2024-12-05 10:24] LABS: Urine Red Blood Cell >100 /HPF (0-2)
== END 2024-12-05 11:10 | disposition home or self-care (01) ==
LOC: EMR 08:39
PROVIDERS: Physician Assistant; EMERGENCY PHYSICIAN Student in an Organized Health Care Education/Training Program; FAMILY PHYSICIAN Internal Medicine
DX: R33.9 Retention of urine, unspecified (principal); I10 Essential (primary) hypertension
CPT/HCPCS: 99282; 81003; 81015

== ENCOUNTER → 2025-01-23 15:42 | Outpatient (REF) | payer OTHER, SELFPAY | LOC: RAD 15:42 | PROVIDERS: ATTENDING PHYSICIAN Specialist; FAMILY PHYSICIAN Internal Medicine | DX: R33.9 Retention of urine, unspecified (principal) | CPT/HCPCS: 74176 ==